=== PATIENT | female | born 1960 | race Caucasian/White ===

== ENCOUNTER 2021-03-12 21:29 | Inpatient (IN) | payer MEDICARE ==
[~2021-03-12] VITALS: Ht 165.1 cm; Wt 165.5 kg
[~2021-03-12 21:29] MED LIST: CARV25TA2 PO; CLOP75TA PO; DIPH25CA58 PO; DOCU-158 PO; FURO40TA4 PO; GABA600T7 PO; GLIM4TAB8 PO; INSU100C4 SQ; INSU100V13 SQ; METF10007 PO; PRAV80TA2 PO; SPIR1TAB PO
--- NOTE | 2021-03-12 21:30 | NUR ---
Pt arrived via gurney at approx. 2100. Pt given sandwich at her request. Pt bed locked and lowered. Call light within reach. No concerns at this time.
[2021-03-12] MEDS ORDERED: SPIR25TA5 PO (22:12)
[2021-03-12] MEDS ORDERED: FURO40TA4 PO (22:12)
[2021-03-12] MEDS ORDERED: LISI5TAB15 PO (22:14)
[2021-03-12] MEDS ORDERED: INSU100I27 SQ (22:14)
[2021-03-12] MEDS ORDERED: ALPR0.254 PO (22:14)
[2021-03-12] MEDS ORDERED: AMLO-186 PO (22:14)
[2021-03-12] MEDS ORDERED: INSU100I17 SQ (22:23)
[2021-03-12] MEDS ORDERED: TIOT4MIS5 IH (22:23)
[2021-03-12] MEDS ORDERED: EZET10TA20 PO (22:23)
[2021-03-12] MEDS ORDERED: DULO30CA2 PO (22:23)
[2021-03-12] MEDS ORDERED: TRAM50TA PO (22:27)
[2021-03-12] MEDS ORDERED: TORS20TA2 PO (22:27)
[2021-03-12 23:21] VITALS: BP 116/72
--- NOTE | 2021-03-12 23:59 | PDOC1 ---
History and Physical Date of Service: DOS: DATE: 03/12/21 TIME: 23:59 Chief Complaint: Problems: (1) Foot ulcer History of Present Illness: HPI: Patient is 60-year-old female presented to outside emergency department yesterday from her make ready mechanic office for further evaluation of left foot ulcerations. Patient is a known diabetic. Apparently when she was at her make ready mechanic yesterday there was some concern for osteomyelitis of the second metatarsal. Patient does report she has been feeling unwell and weak for a little over a week now. Patient's been having some new onset worsening erythema of her left foot. Visit make ready mechanic yesterday outlined the redness and attempt to go to emergency room but already expanded beyond that. 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 X-ray lower extremity concerning for osteomyelitis. When I evaluated patient she was complaining of some foot pain. Past Medical/Surgical History: PMH/PSH: COPD, diabetes, hypertension Allergies: Allergies: Coded Allergies: atorvastatin (Verified Allergy, Intermediate, 03/12/21) latex (Verified Allergy, Intermediate, 03/12/21) Family History: Family History: Diabetes Social History: Social History: Denies alcohol tobacco or drug use Current Medications: Current Medications Active Scripts Active Reported Tramadol Hcl 50 Mg Tablet 50 Mg PO Q6HRS PRN Torsemide 20 Mg Tablet 1 Tab PO DAILY Zetia (Ezetimibe) 10 Mg Tablet 10 Mg PO DAILY Novolog Flexpen (Insulin Aspart) 100 Unit/1 Ml Insuln.pen 10 Unit SQ TIDAC Cymbalta (Duloxetine Hcl) 30 Mg Capsule.dr 30 Mg PO DAILY Spiriva Respimat (Tiotropium [place]) 4 Gm Mist.inhal 2.5 Mcg IH DAILY Levemir Flextouch (Insulin Detemir) 100 Unit/1 Ml Insuln.pen 30 Unit SQ HS Alprazolam 0.25 Mg Tablet 1 Tab PO TID PRN Amlodipine Besylate 5 Mg Tablet 5 Mg PO DAILY Lisinopril 5 Mg Tablet 1 Tab PO DAILY Spironolactone 25 Mg Tablet 25 Mg PO DAILY Furosemide 40 Mg Tablet 40 Mg PO DAILY Gabapentin 600 Mg Tablet 1 Tab PO TID Glimepiride 4 Mg Tablet 1 Tab PO BID Carvedilol 25 Mg Tablet 1 Tab PO BID Clopidogrel (Clopidogrel Bisulfate) 75 Mg Tablet 75 Mg PO DAILY Pravastatin Sodium 80 Mg Tablet 1 Tab PO DAILY ROS: Review of Systems Review of System Unless noted in HPI 14 point review of systems was negative Physical Exam: Vital Signs: Vital Signs Date Time Temp Pulse Resp B/P (MAP) Pulse Ox O2 Delivery O2 Flow Rate FiO2 03/12/21 23:21 97.7 73 16 116/72 (87) 96 Nasal Cannula 3.0 97.7 Physcial Exam: GEN: Obese HEENT: Normal cephalic, atraumatic, external auditory canals are patent EYES: Extraocular muscles are intact, pupil are equally round and reactive to light and accommodation MUSCULOSKELETAL: Well developed , well nourished, good range of motion ENDOCRINE: No thyromegaly was palpated LYMPHATICS: No cervical chain or axillary nodes were noted HEMATOPOIETIC: No bruising NECK: Supple, no JVD, no thyromegaly was noted LUNGS: Clear to auscultation in all lung enriquez without rhonchi or wheezing HEART: RRR, S!, S2 present. Peripheral pulses intact, no obvious murmurs noted ABDOMEN: Soft, nontender. Positive bowel sounds, no organomegaly, normal bowel sounds EXTREMITIES: Prior amputation of left second metatarsal. Erythema on the left foot extending up the ankle. Sole of left foot has 2 ulcers present NEUROLOGIC: Normal speech and tone. A&O x 3, moves all extremities, no obvious focal deficits PSYCHIATRIC: Normal affect, normal mood. Stable SKIN: No ulcerations or rashes, good skin turgor, no jaundice VASCULAR: Good capillary refill, neurovascular bundle appears to be intact Assessment/Plan Assessment/Plan Diabetic foot ulcer with suspected acute osteomyelitis. History of diabetes COPD hypertension -Patient presented to outside hospital from wound care appointment due to worsening foot ulcers. Concern for osteomyelitis -Transferred here -Start patient on Vanco Zosyn. Will consult infectious disease. -Blood cultures were apparently obtained at outside facility -Podiatry consult -DVT prophylaxis -Home meds resumed as indicated -Diet as tolerated Justifications for Admission Other Justification GRIS ORDONEZ MD Mar 12, 2021 23:59
[2021-03-13] MEDS ORDERED: traMADol 50 MG TABLET PO PRN
[2021-03-13] MEDS ORDERED: ELECTROLYTE (NON-ICU) PROTOCOL. MC PRN
[2021-03-13] MEDS ORDERED: oxyCODONE/APAP 5/325 1 TAB TABLET PO PRN
[2021-03-13] MEDS ORDERED: ALPRAZolam 0.25 MG TABLET PO PRN
[2021-03-13] MEDS ORDERED: ACETAMINOPHEN 325 MG TABLET. PO PRN
[2021-03-13] MEDS ORDERED: CALCIUM CARBONATE 500 MG TAB.CHEW PO PRN
[2021-03-13] MEDS ORDERED: ONDANSETRON PF 4 MG/2 ML VIAL. IVP PRN
[2021-03-13] MEDS ORDERED: PIP/TAZO PER PHARMACY MC PRN (00:15)
[2021-03-13] MEDS ORDERED: VANCOMYCIN PER PHARMACY MC PRN (00:15)
[2021-03-13] MEDS: PIPERACILLIN/TAZOBACTAM 3.375 GM in IV NORMAL SALINE 50ML 50 ML IV SCH ×4 (00:50→20:00)
[2021-03-13] MEDS: oxyCODONE/APAP 5/325 1 TAB TABLET PO PRN ×3 (00:54→20:39)
[2021-03-13 01:30] LABS: BASO # 0.1 x10^3/uL (0.0-0.2); BASO % 1 % (0-3); EOS # 0.3 x10^3/uL (0.0-0.7); EOS % 6 % (0-3); HEMATOCRIT 31.2 % (36.0-47.0); HEMOGLOBIN 9.8 g/dL (12.0-15.5); LYMPH # 1.6 x10^3/uL (1.0-4.8); LYMPH % 30 % (24-48); MEAN CORPUSCULAR HEMOGLOBIN 26 pg (25-35); MEAN CORPUSCULAR HGB CONC 32 g/dL (31-37); MEAN CORPUSCULAR VOLUME 84 fL (79-100); MONO # 0.8 x10^3/uL (0.0-1.1); MONO % 14 % (0-9); NEUT # 2.7 x10^3/uL (1.8-7.7); NEUT % 49 % (31-73); PLATELET COUNT 334 x10^3/uL (140-400); RED BLOOD COUNT 3.74 x10^6/uL (3.50-5.40); RED CELL DISTRIBUTION WIDTH 13.9 % (11.5-14.5); WHITE BLOOD COUNT 5.5 x10^3/uL (4.0-11.0)
[2021-03-13 01:43] LABS: PROTHROMBIN TIME PATIENT 12.9 SEC (11.7-14.0)
[2021-03-13 01:45] LABS: ALBUMIN 2.7 g/dL (3.4-5.0); ALBUMIN/GLOBULIN RATIO 0.6 (1.0-1.7); C-REACTIVE PROTEIN 84.9 mg/L (0-3.3); CALCIUM 8.5 mg/dL (8.5-10.1); CREATININE 1.2 mg/dL (0.6-1.0); GFR 45.7; POTASSIUM 5.8 mmol/L (3.5-5.1); TOTAL BILIRUBIN 0.2 mg/dL (0.2-1.0); TOTAL PROTEIN 7.3 g/dL (6.4-8.2)
[2021-03-13] MEDS ORDERED: VANCOMYCIN 2 GM in IV NORMAL SALINE 500ML BAG 500 ML IV ONE (02:00)
[2021-03-13 03:20] VITALS: BP_SYST 105; BP_SYST 124; BP_DIAS 44; BP_DIAS 69
--- NOTE | 2021-03-13 04:13 | NUR ---
Pharmacy Vancomycin Dosing Note S:Consulted to monitor and dose vancomycin started 03/13/21. O:STEPHANIE PETERS is a 60 year old F with Cellulitis . Height: 5 feet, 5 inches Weight: 143.0 kg Holiday Body Weight: 57.00 Adjusted Body Weight: 91.40 Dosing Weight: Actual Other Antibiotics: ZOSYN 3.375 GM Q6H LABS: Last BUN: 33 Last Creatinine: 1.2 Creatinine Clearance: 71 mL/min Last WBC: 5.5 Last Procalcitonin: Tmax (past 24 hours): Microbiology: I/O: Drug Levels: Last level: on at Last dose given 03/13/21 at 0200 Vancomycin Dosing: Loading Dose: 2000 mg x1 Dosing Weight: Actual Target Trough: 10-20 A: Based on: WT AND CRCL P: 1. Begin Vancomycin 2000 mg IV q12h 2. Follow up Trough level on 03/14/21 at 1330 3. Pharmacy will continue to monitor, follow and adjust therapy as needed. CORDELL FIERRO RPH, 03/13/21 0413 Signed: 03/13/21 at 0413 by CORDELL FIERRO RPH PHA
[2021-03-13] MEDS: HEPARIN for SUB-Q USE 5,000 UNIT/ML VIAL. SQ SCH ×3 (05:44→21:29)
[2021-03-13] MEDS: IPRATRPIUM/ALBUTEROL 0.5/2.5MG 3 ML NEBU. NEB SCH ×4 (06:09→18:12)
[2021-03-13 07:00] VITALS: BP 143/57
[2021-03-13] MEDS: EZETIMIBE 10 MG TABLET. PO SCH (08:36)
[2021-03-13] MEDS: GABAPENTIN 300 MG CAPSULE. PO SCH ×3 (08:37→21:26)
[2021-03-13] MEDS: DULoxetine HCL 30 MG CAPSULE.DR PO SCH (08:37)
[2021-03-13] MEDS: CARVEDILOL 12.5 MG TABLET. PO SCH ×2 (08:37→17:40)
[2021-03-13] MEDS: TORSEMIDE 20 MG TABLET. PO SCH (08:38)
[2021-03-13] MEDS: CLOPIDOGREL BISULFATE 75 MG TABLET PO SCH (08:39)
[2021-03-13] MEDS: SENNOSIDES/DOCUSATE 8.6/50MG TABLET. PO SCH ×2 (08:39→21:00)
[2021-03-13] MEDS: INSULIN LISPRO 300 UNITS/3 ML VIAL. SQ SCH ×3 (08:49→17:41)
[2021-03-13] MEDS: NON FORMULARY ITEM (Pravastatin Sodium 1 TAB) PO SCH (09:00)
[2021-03-13] MEDS ORDERED: SPIRONOLACTONE 25 MG TABLET PO SCH (09:00)
[2021-03-13] MEDS ORDERED: NON FORMULARY ITEM (Tiotropium Bromide (Spiriva Respimat) 2.5 MCG) IH SCH (09:00)
[2021-03-13] MEDS ORDERED: LISINOPRIL 5 MG TABLET. PO SCH (09:00)
[2021-03-13 11:00] VITALS: BP 112/36
[2021-03-13 14:00] VITALS: BP 104/35
[2021-03-13] MEDS ORDERED: VANCOMYCIN 2 GM in IV NORMAL SALINE 500ML BAG 500 ML IV SCH (14:00)
--- NOTE | 2021-03-13 14:25 | PDOC2 ---
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 Patient is a known diabetic. Apparently when she was at her fish hatchery worker yesterday there was some concern for osteomyelitis of the second metatarsal. Patient does report she has been feeling unwell and weak for a little over a week now. Patient's been having some new onset worsening erythema of her left foot. 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 X-ray lower extremity concerning for osteomyelitis. Denies any CP, No SOB. No F/C. No N/V/D. Denies use of NSAID's or any OTC supplements . Denies any urinary complaints, no symptoms of UTI, reports Normal UOP. She has Chronic chjanges of CVI both LE, reports Lt LE swelling worse recently . Reports her weight has been stable. No new med changes by PCP Dr. Daniels, she has been on Loop diuretic, Aldcatone and Lisinopril for long time . She is not aware of Dx of CKD or abnormal Kidney function . Denies any Hx of Renal calculus.No FHx of CKD or ESRD Past Medical History Cardiovascular: CAD, HTN, Hyperlipidemia Pulmonary: COPD CENTRAL NERVOUS SYSTEM: Periperal neuropathy GI: Constipation, Other Heme/Onc: No pertinent hx Hepatobiliary: No pertinent hx Psych: No pertinent hx Musculoskeletal: Osteoarthritis Infectious disease: No pertinent hx Renal/: No pertinent hx Endocrine: Diabetes Past Surgical History Past Surgical History: Cholecystectomy, Hernia Repair, Other Family History Family History: Coronary Artery Disease Social History ALCOHOL: none Drugs: None Lives: with Family Domestic Violence: Neg Current Medications Current Medications Current Medications Ondansetron HCl (Zofran) 4 mg PRN Q6HRS PRN IVP NAUSEA/VOMITING 1ST CHOICE; Start 03/13/21 at 00:00 Calcium Carbonate/ Glycine (Tums) 500 mg PRN Q3HRS PRN PO UPSET STOMACH; Start 03/13/21 at 00:00 Zolpidem Tartrate (Ambien) 5 mg PRN QHS PRN PO INSOMNIA, MAY REPEAT IN 1HR; Start 03/13/21 at 00:00 Info (Non-Icu Electrolyte Protocol) 1 ea PRN DAILY PRN MC SEE COMMENTS; Start 03/13/21 at 00:00 Oxycodone HCl (Roxicodone) 5 mg PRN Q3HRS PRN PO BREAKTHROUGH PAIN; Start 03/13/21 at 00:00 Oxycodone/ Acetaminophen (Percocet 5/325) 1 tab PRN Q4HRS PRN PO MODERATE PAIN; Start 03/13/21 at 00:00 Oxycodone/ Acetaminophen (Percocet 5/325) 2 tab PRN Q4HRS PRN PO SEVERE PAIN Last administered on 03/13/21at 08:48; Start 03/13/21 at 00:00 Acetaminophen (Tylenol) 650 mg PRN Q6HRS PRN PO Headaches, Temp > 101.5F; Start 03/13/21 at 00:00 Senna/Docusate Sodium (Senna Plus) 1 tab BID PO Last administered on 03/13/21at 08:39; Start 03/13/21 at 09:00 Heparin Sodium (Porcine) (Heparin Sodium) 5,000 unit Q8HRS SQ Last administered on 03/13/21at 05:44; Start 03/13/21 at 06:00 Alprazolam (Xanax) 0.25 mg PRN TID PRN PO ANXIETY / AGITATION; Start 03/13/21 at 00:00 Amlodipine Besylate (Norvasc) 5 mg DAILY PO Last administered on 03/13/21at 08:36; Start 03/13/21 at 09:00 Clopidogrel Bisulfate (Plavix) 75 mg DAILY PO Last administered on 03/13/21at 08:39; Start 03/13/21 at 09:00 Duloxetine HCl (Cymbalta) 30 mg DAILY PO Last administered on 03/13/21at 08:37; Start 03/13/21 at 09:00 EZETIMIBE (Zetia) 10 mg DAILY PO Last administered on 03/13/21at 08:36; Start 03/13/21 at 09:00 Lisinopril (Prinivil) 5 mg DAILY PO Last administered on 03/13/21at 08:35; Start 03/13/21 at 09:00 Spironolactone (Aldactone) 25 mg DAILY PO Last administered on 03/13/21at 08:38; Start 03/13/21 at 09:00 Torsemide (Demadex) 20 mg DAILY PO Last administered on 03/13/21at 08:38; Start 03/13/21 at 09:00 Tramadol HCl (Ultram) 50 mg PRN Q6HRS PRN PO MILD PAIN 1-3; Start 03/13/21 at 00:00 Carvedilol (Coreg) 25 mg BIDWMEALS PO Last administered on 03/13/21at 08:37; Start 03/13/21 at 08:00 Gabapentin (Neurontin) 600 mg TID PO Last administered on 03/13/21at 08:37; Start 03/13/21 at 09:00 Insulin Human Lispro (HumaLOG) 10 units TIDWMEALS SQ Last administered on 03/13/21at 12:54; Start 03/13/21 at 08:00 Insulin Glargine (Lantus Syringe) 30 unit QHS SQ ; Start 03/13/21 at 21:00 Non-Formulary Medication (Pravastatin Sodium ) 1 tab DAILY PO ; Start 03/13/21 at 09:00; Status UNV Non-Formulary Medication (Tiotropium [place] (Spiriva Respimat)) 2.5 mcg DAILY IH ; Start 03/13/21 at 09:00; Status UNV Vancomycin HCl (Vanco Per Pharmacy) 1 each PRN DAILY PRN MC SEE COMMENTS Last administered on 03/13/21at 04:11; Start 03/13/21 at 00:15 Piperacillin Sod/ Tazobactam Sod (Zosyn Per Pharmacy) 1 each PRN DAILY PRN MC SEE COMMENTS; Start 03/13/21 at 00:15 Albuterol/ Ipratropium (Duoneb) 3 ml RTQID NEB Last administered on 03/13/21at 11:37; Start 03/13/21 at 08:00 Piperacillin Sod/ Tazobactam Sod 3.375 gm/Sodium Chloride 50 ml @ 100 mls/hr Q6HRS IV Last administered on 03/13/21at 12:48; Start 03/13/21 at 01:00 Vancomycin HCl 2 gm/Sodium Chloride 500 ml @ 250 mls/hr 1X ONCE IV Last administered on 03/13/21at 02:00; Start 03/13/21 at 02:00; Stop 03/13/21 at 03:59; Status DC Vancomycin HCl 2 gm/Sodium Chloride 500 ml @ 250 mls/hr Q12H IV ; Start 03/13/21 at 14:00 Vancomycin HCl (Vancomycin Trough Level) 1 each 1X ONCE MC ; Start 03/14/21 at 13:30; Stop 03/14/21 at 13:31 Lactobacillus Rhamnosus (Culturelle) 1 cap BID PO ; Start 03/13/21 at 21:00 Active Scripts Active Reported Tramadol Hcl 50 Mg Tablet 50 Mg PO Q6HRS PRN Torsemide 20 Mg Tablet 1 Tab PO DAILY Zetia (Ezetimibe) 10 Mg Tablet 10 Mg PO DAILY Novolog Flexpen (Insulin Aspart) 100 Unit/1 Ml Insuln.pen 10 Unit SQ TIDAC Cymbalta (Duloxetine Hcl) 30 Mg Capsule.dr 30 Mg PO DAILY Spiriva Respimat (Tiotropium [place]) 4 Gm Mist.inhal 2.5 Mcg IH DAILY Levemir Flextouch (Insulin Detemir) 100 Unit/1 Ml Insuln.pen 30 Unit SQ HS Alprazolam 0.25 Mg Tablet 1 Tab PO TID PRN Amlodipine Besylate 5 Mg Tablet 5 Mg PO DAILY Lisinopril 5 Mg Tablet 1 Tab PO DAILY Spironolactone 25 Mg Tablet 25 Mg PO DAILY Furosemide 40 Mg Tablet 40 Mg PO DAILY Gabapentin 600 Mg Tablet 1 Tab PO TID Glimepiride 4 Mg Tablet 1 Tab PO BID Carvedilol 25 Mg Tablet 1 Tab PO BID Clopidogrel (Clopidogrel Bisulfate) 75 Mg Tablet 75 Mg PO DAILY Pravastatin Sodium 80 Mg Tablet 1 Tab PO DAILY Allergies Allergies: Coded Allergies: atorvastatin (Verified Allergy, Intermediate, 03/12/21) latex (Verified Allergy, Intermediate, 03/12/21) ROS Review of System As per HPI, rest of the ROS is negative Physical Exam Physical Exam GEN: Obese, NAD HEENT: Normal cephalic, atraumatic, OM moist, anicteric NECK: Supple, no JVD LUNGS: Clear to auscultation , Non labored HEART: RRR, ABDOMEN: Soft, nontender. Obese EXTREMITIES: Prior amputation of left second metatarsal. Erythema on the left foot extending up the ankle. Sole of left foot has 2 ulcers present. Changes of CVI + Bilat LE . Lt LE edema + NEUROLOGIC A&O x 3, no obvious focal deficits PSYCHIATRIC: Normal affect, normal mood. Stable SKIN: No rashes, Changes of CVI+ No [place], No CVA or SP tenderness Vital Signs Vital Signs Date Time Temp Pulse Resp B/P (MAP) Pulse Ox O2 Delivery O2 Flow Rate FiO2 03/13/21 11:37 Nasal Cannula 3.0 03/13/21 11:00 97.6 65 18 112/36 (61) 95 97.6 Assessment & Plan LYNNETTE - Baseline from [place] Cr 1.3 , Per Consult placed by PCP Cr of 3.2- I could not find any records with this Creatinine. Reviewed available records from [facility] as well as li RN UOP not recorded , strict I/O , avoid Nephrotoxins (Monitor Vanc levels ) , ,Maintain hydration , monitor labs HypoNatremia- Mild, Monitor HyperKalemia- On Aldactone and Lisinopril not dced - as per current med list Diabetic foot ulcer with suspected acute osteomyelitis- Currently on Abx Vanco Zosyn. infectious disease. consulted HTN- On multiple antihypertensives . Also on Torsemide, Aldactone, small dose CHI-I . BP Low Normal, Hold Antihypertensives/Diuretics if Hypotensive DM per primary Anemia- Hgb < 10 , defer [place] to primary Labs Labs Laboratory Tests Test 03/13/21 00:55 03/13/21 01:05 03/13/21 08:14 03/13/21 11:38 Prothrombin Time 12.9 SEC (11.7-14.0) Prothromb Time International Ratio 1.0 (0.8-1.1) Activated Partial Thromboplast Time 31 SEC (24-38) White Blood Count 5.5 x10^3/uL (4.0-11.0) Red Blood Count 3.74 x10^6/uL (3.50-5.40) Hemoglobin 9.8 g/dL (12.0-15.5) Hematocrit 31.2 % (36.0-47.0) Mean Corpuscular Volume 84 fL (79-100) Mean Corpuscular Hemoglobin 26 pg (25-35) Mean Corpuscular Hemoglobin Concent 32 g/dL (31-37) Red Cell Distribution Width 13.9 % (11.5-14.5) Platelet Count 334 x10^3/uL (140-400) Neutrophils (%) (Auto) 49 % (31-73) Lymphocytes (%) (Auto) 30 % (24-48) Monocytes (%) (Auto) 14 % (0-9) Eosinophils (%) (Auto) 6 % (0-3) Basophils (%) (Auto) 1 % (0-3) Neutrophils # (Auto) 2.7 x10^3/uL (1.8-7.7) Lymphocytes # (Auto) 1.6 x10^3/uL (1.0-4.8) Monocytes # (Auto) 0.8 x10^3/uL (0.0-1.1) Eosinophils # (Auto) 0.3 x10^3/uL (0.0-0.7) Basophils # (Auto) 0.1 x10^3/uL (0.0-0.2) Sodium Level 133 mmol/L (136-145) Potassium Level 5.8 mmol/L (3.5-5.1) Chloride Level 98 mmol/L (98-107) Carbon Dioxide Level 30 mmol/L (21-32) Anion Gap 5 (6-14) Blood Urea Nitrogen 33 mg/dL (7-20) Creatinine 1.2 mg/dL (0.6-1.0) Estimated GFR (Cockcroft-Gault) 45.7 BUN/Creatinine Ratio 28 (6-20) Glucose Level 150 mg/dL (70-99) Calcium Level 8.5 mg/dL (8.5-10.1) Total Bilirubin 0.2 mg/dL (0.2-1.0) Aspartate Amino Transf (AST/SGOT) 11 U/L (15-37) Alanine Aminotransferase (ALT/SGPT) 14 U/L (14-59) Alkaline Phosphatase 112 U/L (46-116) Creatine Kinase 30 U/L (26-192) C-Reactive Protein, Quantitative 84.9 mg/L (0-3.3) Total Protein 7.3 g/dL (6.4-8.2) Albumin 2.7 g/dL (3.4-5.0) Albumin/Globulin Ratio 0.6 (1.0-1.7) Glucose (Fingerstick) 203 mg/dL (70-99) 206 mg/dL (70-99) Laboratory Tests Test 03/13/21 00:55 03/13/21 01:05 03/13/21 08:14 03/13/21 11:38 Prothrombin Time 12.9 SEC (11.7-14.0) Prothromb Time International Ratio 1.0 (0.8-1.1) Activated Partial Thromboplast Time 31 SEC (24-38) White Blood Count 5.5 x10^3/uL (4.0-11.0) Red Blood Count 3.74 x10^6/uL (3.50-5.40) Hemoglobin 9.8 g/dL (12.0-15.5) Hematocrit 31.2 % (36.0-47.0) Mean Corpuscular Volume 84 fL (79-100) Mean Corpuscular Hemoglobin 26 pg (25-35) Mean Corpuscular Hemoglobin Concent 32 g/dL (31-37) Red Cell Distribution Width 13.9 % (11.5-14.5) Platelet Count 334 x10^3/uL (140-400) Neutrophils (%) (Auto) 49 % (31-73) Lymphocytes (%) (Auto) 30 % (24-48) Monocytes (%) (Auto) 14 % (0-9) Eosinophils (%) (Auto) 6 % (0-3) Basophils (%) (Auto) 1 % (0-3) Neutrophils # (Auto) 2.7 x10^3/uL (1.8-7.7) Lymphocytes # (Auto) 1.6 x10^3/uL (1.0-4.8) Monocytes # (Auto) 0.8 x10^3/uL (0.0-1.1) Eosinophils # (Auto) 0.3 x10^3/uL (0.0-0.7) Basophils # (Auto) 0.1 x10^3/uL (0.0-0.2) Sodium Level 133 mmol/L (136-145) Potassium Level 5.8 mmol/L (3.5-5.1) Chloride Level 98 mmol/L (98-107) Carbon Dioxide Level 30 mmol/L (21-32) Anion Gap 5 (6-14) Blood Urea Nitrogen 33 mg/dL (7-20) Creatinine 1.2 mg/dL (0.6-1.0) Estimated GFR (Cockcroft-Gault) 45.7 BUN/Creatinine Ratio 28 (6-20) Glucose Level 150 mg/dL (70-99) Calcium Level 8.5 mg/dL (8.5-10.1) Total Bilirubin 0.2 mg/dL (0.2-1.0) Aspartate Amino Transf (AST/SGOT) 11 U/L (15-37) Alanine Aminotransferase (ALT/SGPT) 14 U/L (14-59) Alkaline Phosphatase 112 U/L (46-116) Creatine Kinase 30 U/L (26-192) C-Reactive Protein, Quantitative 84.9 mg/L (0-3.3) Total Protein 7.3 g/dL (6.4-8.2) Albumin 2.7 g/dL (3.4-5.0) Albumin/Globulin Ratio 0.6 (1.0-1.7) Glucose (Fingerstick) 203 mg/dL (70-99) 206 mg/dL (70-99) Review All relevant outside records, renal labs, imaging studies, telemetry/EKG's were reviewed. Images Images Xray foot left - reviewed [facility] ER records MILDRED BUCK MD Mar 13, 2021 14:25
--- NOTE | 2021-03-13 16:35 | PDOC2 ---
CONSULT Date of Consult Date of Consult DATE: 03/13/21 TIME: 16:20 Reason for Consult Reason for Consult: Foot wound abx management Referring Physician Referring Physician: DR Mack Source Source: Chart review, Patient History of Present Illness Reason for Visit: 60-year-old female with previous LT 2nd toe partial ampuation who was sent from [facility] and DR George's office for further evaluation of left foot ulcerations and possible OM of Rt 2nd metatarsal area.. Pt underwent callus removal and subsequently noticed pain ,swelling and redness. Patient is a known diabetic neuropathy. Patient denies any fever or c hills but has been having weakness along with some new onset worsening erythema of her left foot. X-ray lower extremity concerning for osteomyelitis.Currently on IV Vanc and Zosyn. Has bilateral lower ext venous stasis chronic. NO N/V/D/Abdominal pain/cough or sob Past Medical History Cardiovascular: CAD, HTN, Hyperlipidemia Pulmonary: COPD CENTRAL NERVOUS SYSTEM: Periperal neuropathy GI: Constipation, Other Heme/Onc: No pertinent hx Hepatobiliary: No pertinent hx Psych: No pertinent hx Musculoskeletal: Osteoarthritis Infectious disease: No pertinent hx Renal/: No pertinent hx Endocrine: Diabetes Past Surgical History Past Surgical History: Cholecystectomy, Hernia Repair, Other Family History Family History: Coronary Artery Disease Social History ALCOHOL: none Drugs: None Lives: with Family Domestic Violence: Neg Current Medications Current Medications Current Medications Ondansetron HCl (Zofran) 4 mg PRN Q6HRS PRN IVP NAUSEA/VOMITING 1ST CHOICE; Start 03/13/21 at 00:00 Calcium Carbonate/ Glycine (Tums) 500 mg PRN Q3HRS PRN PO UPSET STOMACH; Start 03/13/21 at 00:00 Zolpidem Tartrate (Ambien) 5 mg PRN QHS PRN PO INSOMNIA, MAY REPEAT IN 1HR; Start 03/13/21 at 00:00 Info (Non-Icu Electrolyte Protocol) 1 ea PRN DAILY PRN MC SEE COMMENTS; Start 03/13/21 at 00:00 Oxycodone HCl (Roxicodone) 5 mg PRN Q3HRS PRN PO BREAKTHROUGH PAIN; Start 03/13/21 at 00:00 Oxycodone/ Acetaminophen (Percocet 5/325) 1 tab PRN Q4HRS PRN PO MODERATE PAIN; Start 03/13/21 at 00:00 Oxycodone/ Acetaminophen (Percocet 5/325) 2 tab PRN Q4HRS PRN PO SEVERE PAIN Last administered on 03/13/21 08:48; Start 03/13/21 at 00:00 Acetaminophen (Tylenol) 650 mg PRN Q6HRS PRN PO Headaches, Temp > 101.5F; Start 03/13/21 at 00:00 Senna/Docusate Sodium (Senna Plus) 1 tab BID PO Last administered on 03/13/21at 08:39; Start 03/13/21 at 09:00 Heparin Sodium (Porcine) (Heparin Sodium) 5,000 unit Q8HRS SQ Last administered on 03/13/21 15:13; Start 03/13/21 at 06:00 Alprazolam (Xanax) 0.25 mg PRN TID PRN PO ANXIETY / AGITATION; Start 03/13/21 at 00:00 Amlodipine Besylate (Norvasc) 5 mg DAILY PO Last administered on 03/13/21 08:36; Start 03/13/21 at 09:00 Clopidogrel Bisulfate (Plavix) 75 mg DAILY PO Last administered on 03/13/21 08:39; Start 03/13/21 at 09:00 Duloxetine HCl (Cymbalta) 30 mg DAILY PO Last administered on 03/13/21 08:37; Start 03/13/21 at 09:00 EZETIMIBE (Zetia) 10 mg DAILY PO Last administered on 03/13/21 08:36; Start 03/13/21 at 09:00 Lisinopril (Prinivil) 5 mg DAILY PO Last administered on 03/13/21 08:35; Start 03/13/21 at 09:00 Spironolactone (Aldactone) 25 mg DAILY PO Last administered on 03/13/21 08:38; Start 03/13/21 at 09:00; Stop 03/13/21 at 15:18; Status DC Torsemide (Demadex) 20 mg DAILY PO Last administered on 03/13/21 08:38; Start 03/13/21 at 09:00 Tramadol HCl (Ultram) 50 mg PRN Q6HRS PRN PO MILD PAIN 1-3; Start 03/13/21 at 00:00 Carvedilol (Coreg) 25 mg BIDWMEALS PO Last administered on 03/13/21at 08:37; Start 03/13/21 at 08:00 Gabapentin (Neurontin) 600 mg TID PO Last administered on 03/13/21at 15:00; Start 03/13/21 at 09:00 Insulin Human Lispro (HumaLOG) 10 units TIDWMEALS SQ Last administered on 03/13/21at 12:54; Start 03/13/21 at 08:00 Insulin Glargine (Lantus Syringe) 30 unit QHS SQ ; Start 03/13/21 at 21:00 Non-Formulary Medication (Pravastatin Sodium ) 1 tab DAILY PO ; Start 03/13/21 at 09:00; Status UNV Non-Formulary Medication (Tiotropium Ellerbe (Spiriva Respimat)) 2.5 mcg DAILY IH ; Start 03/13/21 at 09:00; Status UNV Vancomycin HCl (Vanco Per Pharmacy) 1 each PRN DAILY PRN MC SEE COMMENTS Last administered on 03/13/21at 04:11; Start 03/13/21 at 00:15 Piperacillin Sod/ Tazobactam Sod (Zosyn Per Pharmacy) 1 each PRN DAILY PRN MC SEE COMMENTS; Start 03/13/21 at 00:15 Albuterol/ Ipratropium (Duoneb) 3 ml RTQID NEB Last administered on 03/13/21at 15:07; Start 03/13/21 at 08:00 Piperacillin Sod/ Tazobactam Sod 3.375 gm/Sodium Chloride 50 ml @ 100 mls/hr Q6HRS IV Last administered on 03/13/21at 12:48; Start 03/13/21 at 01:00 Vancomycin HCl 2 gm/Sodium Chloride 500 ml @ 250 mls/hr 1X ONCE IV Last administered on 03/13/21at 02:00; Start 03/13/21 at 02:00; Stop 03/13/21 at 03:59; Status DC Vancomycin HCl 2 gm/Sodium Chloride 500 ml @ 250 mls/hr Q12H IV Last administered on 03/13/21at 14:58; Start 03/13/21 at 14:00 Vancomycin HCl (Vancomycin Trough Level) 1 each 1X ONCE MC ; Start 03/14/21 at 13:30; Stop 03/14/21 at 13:31 Lactobacillus Rhamnosus (Culturelle) 1 cap BID PO ; Start 03/13/21 at 21:00 Active Scripts Active Reported Tramadol Hcl 50 Mg Tablet 50 Mg PO Q6HRS PRN Torsemide 20 Mg Tablet 1 Tab PO DAILY Zetia (Ezetimibe) 10 Mg Tablet 10 Mg PO DAILY Novolog Flexpen (Insulin Aspart) 100 Unit/1 Ml Insuln.pen 10 Unit SQ TIDAC Cymbalta (Duloxetine Hcl) 30 Mg Capsule.dr 30 Mg PO DAILY Spiriva Respimat (Tiotropium Ellerbe) 4 Gm Mist.inhal 2.5 Mcg IH DAILY Levemir Flextouch (Insulin Detemir) 100 Unit/1 Ml Insuln.pen 30 Unit SQ HS Alprazolam 0.25 Mg Tablet 1 Tab PO TID PRN Amlodipine Besylate 5 Mg Tablet 5 Mg PO DAILY Lisinopril 5 Mg Tablet 1 Tab PO DAILY Spironolactone 25 Mg Tablet 25 Mg PO DAILY Furosemide 40 Mg Tablet 40 Mg PO DAILY Gabapentin 600 Mg Tablet 1 Tab PO TID Glimepiride 4 Mg Tablet 1 Tab PO BID Carvedilol 25 Mg Tablet 1 Tab PO BID Clopidogrel (Clopidogrel Bisulfate) 75 Mg Tablet 75 Mg PO DAILY Pravastatin Sodium 80 Mg Tablet 1 Tab PO DAILY Allergies Allergies: Coded Allergies: atorvastatin (Verified Allergy, Intermediate, 03/12/21) latex (Verified Allergy, Intermediate, 03/12/21) ROS Review of System negative except for above Physical Exam Physical Exam GEN: Well developed and well nourished female in nad sitting up in chair HEENT: Perrl and EOMI Normal cephalic, atraumatic, OM moist, anicteric NECK: Supple, no JVD LUNGS: Clear bilaterally HEART: RRR, ABDOMEN: Soft, nontender. Obese BS + EXTREMITIES: Prior amputation of left second metatarsal. Erythema on the left foot extending up the ankle. left plantar foot has 2 ulcers present. BLE 1-2 + edema + Chronic venous insuffiency NEUROLOGIC A&O x 3, no obvious focal deficits PSYCHIATRIC: Normal affect, normal mood. Stable SKIN: No rashes, Changes of CVI+ No [place], No CVA or SP tenderness Vitals VITALS Vital Signs Date Time Temp Pulse Resp B/P (MAP) Pulse Ox O2 Delivery O2 Flow Rate FiO2 03/13/21 15:08 Nasal Cannula 3.0 03/13/21 14:00 97.7 69 18 104/35 (58) 94 97.7 Labs Labs Laboratory Tests Test 03/13/21 00:55 03/13/21 01:05 03/13/21 08:14 03/13/21 11:38 Prothrombin Time 12.9 SEC (11.7-14.0) Prothromb Time International Ratio 1.0 (0.8-1.1) Activated Partial Thromboplast Time 31 SEC (24-38) White Blood Count 5.5 x10^3/uL (4.0-11.0) Red Blood Count 3.74 x10^6/uL (3.50-5.40) Hemoglobin 9.8 g/dL (12.0-15.5) Hematocrit 31.2 % (36.0-47.0) Mean Corpuscular Volume 84 fL (79-100) Mean Corpuscular Hemoglobin 26 pg (25-35) Mean Corpuscular Hemoglobin Concent 32 g/dL (31-37) Red Cell Distribution Width 13.9 % (11.5-14.5) Platelet Count 334 x10^3/uL (140-400) Neutrophils (%) (Auto) 49 % (31-73) Lymphocytes (%) (Auto) 30 % (24-48) Monocytes (%) (Auto) 14 % (0-9) Eosinophils (%) (Auto) 6 % (0-3) Basophils (%) (Auto) 1 % (0-3) Neutrophils # (Auto) 2.7 x10^3/uL (1.8-7.7) Lymphocytes # (Auto) 1.6 x10^3/uL (1.0-4.8) Monocytes # (Auto) 0.8 x10^3/uL (0.0-1.1) Eosinophils # (Auto) 0.3 x10^3/uL (0.0-0.7) Basophils # (Auto) 0.1 x10^3/uL (0.0-0.2) Sodium Level 133 mmol/L (136-145) Potassium Level 5.8 mmol/L (3.5-5.1) Chloride Level 98 mmol/L (98-107) Carbon Dioxide Level 30 mmol/L (21-32) Anion Gap 5 (6-14) Blood Urea Nitrogen 33 mg/dL (7-20) Creatinine 1.2 mg/dL (0.6-1.0) Estimated GFR (Cockcroft-Gault) 45.7 BUN/Creatinine Ratio 28 (6-20) Glucose Level 150 mg/dL (70-99) Calcium Level 8.5 mg/dL (8.5-10.1) Total Bilirubin 0.2 mg/dL (0.2-1.0) Aspartate Amino Transf (AST/SGOT) 11 U/L (15-37) Alanine Aminotransferase (ALT/SGPT) 14 U/L (14-59) Alkaline Phosphatase 112 U/L (46-116) Creatine Kinase 30 U/L (26-192) C-Reactive Protein, Quantitative 84.9 mg/L (0-3.3) Total Protein 7.3 g/dL (6.4-8.2) Albumin 2.7 g/dL (3.4-5.0) Albumin/Globulin Ratio 0.6 (1.0-1.7) Glucose (Fingerstick) 203 mg/dL (70-99) 206 mg/dL (70-99) Laboratory Tests Test 03/13/21 00:55 03/13/21 01:05 03/13/21 08:14 03/13/21 11:38 Prothrombin Time 12.9 SEC (11.7-14.0) Prothromb Time International Ratio 1.0 (0.8-1.1) Activated Partial Thromboplast Time 31 SEC (24-38) White Blood Count 5.5 x10^3/uL (4.0-11.0) Red Blood Count 3.74 x10^6/uL (3.50-5.40) Hemoglobin 9.8 g/dL (12.0-15.5) Hematocrit 31.2 % (36.0-47.0) Mean Corpuscular Volume 84 fL (79-100) Mean Corpuscular Hemoglobin 26 pg (25-35) Mean Corpuscular Hemoglobin Concent 32 g/dL (31-37) Red Cell Distribution Width 13.9 % (11.5-14.5) Platelet Count 334 x10^3/uL (140-400) Neutrophils (%) (Auto) 49 % (31-73) Lymphocytes (%) (Auto) 30 % (24-48) Monocytes (%) (Auto) 14 % (0-9) Eosinophils (%) (Auto) 6 % (0-3) Basophils (%) (Auto) 1 % (0-3) Neutrophils # (Auto) 2.7 x10^3/uL (1.8-7.7) Lymphocytes # (Auto) 1.6 x10^3/uL (1.0-4.8) Monocytes # (Auto) 0.8 x10^3/uL (0.0-1.1) Eosinophils # (Auto) 0.3 x10^3/uL (0.0-0.7) Basophils # (Auto) 0.1 x10^3/uL (0.0-0.2) Sodium Level 133 mmol/L (136-145) Potassium Level 5.8 mmol/L (3.5-5.1) Chloride Level 98 mmol/L (98-107) Carbon Dioxide Level 30 mmol/L (21-32) Anion Gap 5 (6-14) Blood Urea Nitrogen 33 mg/dL (7-20) Creatinine 1.2 mg/dL (0.6-1.0) Estimated GFR (Cockcroft-Gault) 45.7 BUN/Creatinine Ratio 28 (6-20) Glucose Level 150 mg/dL (70-99) Calcium Level 8.5 mg/dL (8.5-10.1) Total Bilirubin 0.2 mg/dL (0.2-1.0) Aspartate Amino Transf (AST/SGOT) 11 U/L (15-37) Alanine Aminotransferase (ALT/SGPT) 14 U/L (14-59) Alkaline Phosphatase 112 U/L (46-116) Creatine Kinase 30 U/L (26-192) C-Reactive Protein, Quantitative 84.9 mg/L (0-3.3) Total Protein 7.3 g/dL (6.4-8.2) Albumin 2.7 g/dL (3.4-5.0) Albumin/Globulin Ratio 0.6 (1.0-1.7) Glucose (Fingerstick) 203 mg/dL (70-99) 206 mg/dL (70-99) Images Images Lt plantar wounds, callus ,cellulitis , Possible OM DM with neuropathy Renal insuffiency H/O Lt 2nd toe partial amputation HTN Chr venous insuffiency Anemia Assessment/Plan Assessment/Plan DC Vanc Cont Zosyn may need renal dosing Dapto Will likely need Imaging of Lt foot to r/o OM,abscess, MRI would be optimal, Local wound care Off load Monitor labs and cultures D/W NOHEMI MEJIAS MD Mar 13, 2021 16:35
[2021-03-13 19:00] VITALS: BP 152/65
--- NOTE | 2021-03-13 19:38 | NUR ---
DL collected, sent to [id number].
[2021-03-13 20:30] LABS: BILIRUBIN,URINE NEGATIVE (NEG); CLARITY,URINE CLEAR; COLOR,URINE YELLOW; NITRITE,URINE NEGATIVE (NEG); PROTEIN,URINE NEGATIVE (NEG-TRACE)
[2021-03-13 20:38] LABS: BACTERIA,URINE 0 /HPF (0-FEW); RBC,URINE 0 /HPF (0-2); YEAST,URINE PRESENT /HPF
[2021-03-13] MEDS ORDERED: INSULIN GLARGINE SYRINGE. SQ SCH (21:00)
[2021-03-13] MEDS: DAPTOmycin (GENERIC) IVPB 550 MG in IV NORMAL SALINE 50ML 50 ML IV SCH (21:00)
[2021-03-13] MEDS: LACTOBACILLUS RHAMNOSUS GG 1 CAPSULE. PO SCH (21:00)
[2021-03-13] MEDS: ZOLPIDEM 5 MG TABLET. PO PRN (21:26)
[2021-03-13] MEDS: oxyCODONE IR 5 MG TABLET PO PRN (21:28)
[2021-03-13 23:01] VITALS: BP 123/65
[2021-03-14] MEDS: PIPERACILLIN/TAZOBACTAM 3.375 GM in IV NORMAL SALINE 50ML 50 ML IV SCH ×4 (01:00→17:50)
[2021-03-14] MEDS: oxyCODONE/APAP 5/325 1 TAB TABLET PO PRN ×4 (05:05→22:35)
[2021-03-14] MEDS: HEPARIN for SUB-Q USE 5,000 UNIT/ML VIAL. SQ SCH ×3 (05:30→21:50)
[2021-03-14 05:47] LABS: HEMOGLOBIN A1C 11.4 % (4.8-5.6)
[2021-03-14 07:00] VITALS: BP 94/61
[2021-03-14] MEDS: IPRATRPIUM/ALBUTEROL 0.5/2.5MG 3 ML NEBU. NEB SCH ×4 (07:34→20:36)
[2021-03-14 07:59] LABS: CALCIUM 8.5 mg/dL (8.5-10.1); CREATININE 1.7 mg/dL (0.6-1.0); GFR 30.6
[2021-03-14 08:11] LABS: POTASSIUM 6.1 mmol/L (3.5-5.1)
[2021-03-14] MEDS: GABAPENTIN 300 MG CAPSULE. PO SCH ×3 (08:46→21:37)
[2021-03-14] MEDS: LACTOBACILLUS RHAMNOSUS GG 1 CAPSULE. PO SCH ×2 (08:46→21:37)
[2021-03-14] MEDS: EZETIMIBE 10 MG TABLET. PO SCH (08:46)
[2021-03-14] MEDS: CLOPIDOGREL BISULFATE 75 MG TABLET PO SCH (08:46)
[2021-03-14] MEDS: SENNOSIDES/DOCUSATE 8.6/50MG TABLET. PO SCH ×2 (08:46→21:37)
[2021-03-14] MEDS: DULoxetine HCL 30 MG CAPSULE.DR PO SCH (08:46)
[2021-03-14] MEDS: TORSEMIDE 20 MG TABLET. PO SCH (08:47)
[2021-03-14] MEDS: NON FORMULARY ITEM (Pravastatin Sodium 1 TAB) PO SCH (08:48)
[2021-03-14] MEDS: INSULIN LISPRO 300 UNITS/3 ML VIAL. SQ SCH ×3 (08:56→18:03)
--- NOTE | 2021-03-14 09:21 | PDOC ---
[employer] PROGRESS NOTE Date of Service DOS: DATE: 03/14/21 TIME: 09:19 Chief Complaint Chief Complaint Diabetic foot ulcer with suspected acute osteomyelitis. History of diabetes COPD hypertension -Patient presented to outside hospital from wound care appointment due to worsening foot ulcers. Concern for osteomyelitis -Transferred here -Start patient on Vanco Zosyn. Will consult infectious disease. -Blood cultures were apparently obtained at outside facility -Podiatry consult -DVT prophylaxis -Home meds resumed as indicated -Diet as tolerated History of Present Illness History of Present Illness Patient is 60-year-old female presented to outside emergency department yesterday from her planning consultant office for further evaluation of left foot ulcerations. Patient is a known diabetic. Apparently when she was at her planning consultant yesterday there was some concern for osteomyelitis of the second metatarsal. Patient does report she has been feeling unwell and weak for a little over a week now. Patient's been having some new onset worsening erythema of her left foot. Visit planning consultant yesterday outlined the redness and attempt to go to emergency room but already expanded beyond that. 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 X-ray lower extremity concerning for osteomyelitis. When I evaluated patient she was complaining of some foot pain. 03/13 Late entry for 03 13. Patient evaluated and examined at bedside. Was complaining of some ongoing foot pain. Antibiotics started she is tolerating well. Consults to ID podiatry and nephrology. Plan of care discussed with bedside RN. Vitals/I&O Vitals/I&O: Vital Signs Date Time Temp Pulse Resp B/P (MAP) Pulse Ox O2 Delivery O2 Flow Rate FiO2 03/14/21 07:36 99 Nasal Cannula 3.0 03/14/21 07:00 98.0 125 18 94/61 (72) 98.0 I & O 03/13/21 03/13/21 03/14/21 15:00 23:00 07:00 Intake Total 750 ml 1000 ml 600 ml Balance 750 ml 1000 ml 600 ml Physical Exam General: Alert, Oriented X3, Cooperative Heart: Regular rate, Normal S1, Normal S2 Lungs: Clear Abdomen: Other (obese) Extremities: Other (previous toe amputation left) Skin: Other (Some erythema on left foot and ankle) Labs Labs: Laboratory Tests Test 03/13/21 11:38 03/13/21 17:35 03/13/21 19:20 03/13/21 20:26 Glucose (Fingerstick) 206 mg/dL (70-99) 297 mg/dL (70-99) 322 mg/dL (70-99) Urine Collection Type Unknown Urine Color Yellow Urine Clarity Clear Urine pH 5.0 (<5.0-8.0) Urine Specific [place] 1.015 (1.000-1.030) Urine Protein Negative mg/dL (NEG-TRACE) Urine Glucose (UA) 250 mg/dL (NEG) Urine Ketones (Stick) Negative mg/dL (NEG) Urine Blood Negative (NEG) Urine Nitrite Negative (NEG) Urine Bilirubin Negative (NEG) Urine Urobilinogen Dipstick 1.0 mg/dL (0.2 mg/dL) Urine Leukocyte Esterase Small (NEG) Urine RBC 0 /HPF (0-2) Urine WBC 5-10 /HPF (0-4) Urine Squamous Epithelial Cells Mod /LPF Urine Bacteria 0 /HPF (0-FEW) Urine Mucus Slight /LPF Urine Yeast Present /HPF Test 03/14/21 05:45 03/14/21 08:03 Sodium Level 134 mmol/L (136-145) Potassium Level 6.1 mmol/L (3.5-5.1) Chloride Level 100 mmol/L (98-107) Carbon Dioxide Level 30 mmol/L (21-32) Anion Gap 4 (6-14) Blood Urea Nitrogen 33 mg/dL (7-20) Creatinine 1.7 mg/dL (0.6-1.0) Estimated GFR (Cockcroft-Gault) 30.6 Glucose Level 263 mg/dL (70-99) Calcium Level 8.5 mg/dL (8.5-10.1) Glucose (Fingerstick) 252 mg/dL (70-99) Comment Review of Relevant I have reviewed the following items zuleyka (where applicable) has been applied. Medications: Current Medications Medications (Trade) Dose Ordered Sig/Yovanny Route PRN Reason Start Time Stop Time Status Last Admin Dose Admin Insulin Glargine (Lantus Syringe) 30 unit QHS SQ 03/13/21 21:00 03/13/21 21:30 Vancomycin HCl 2 gm/Sodium Chloride 500 ml @ 250 mls/hr Q12H IV 03/13/21 14:00 03/13/21 16:36 DC 03/13/21 14:58 Lactobacillus Rhamnosus (Culturelle) 1 cap BID PO 03/13/21 21:00 03/14/21 08:46 Daptomycin 550 mg/ Sodium Chloride 50 ml @ 100 mls/hr Q24H IV 03/13/21 17:00 03/13/21 21:00 Justifications for Admission Other Justification GRIS ORDONEZ MD Mar 14, 2021 09:21
[2021-03-14] MEDS ORDERED: CALCIUM GLUCONATE 1,000 MG/10 ML VIAL. IVP ONE (10:00)
[2021-03-14] MEDS ORDERED: INSULIN REGULAR 100 UNIT/ML 3ML VIAL. IV ONE (10:00)
[2021-03-14] MEDS ORDERED: DEXTROSE 50% 25 GM / 50ML DISP.SYRIN. IV ONE (10:00)
--- NOTE | 2021-03-14 11:32 | PDOC ---
[employer] PROGRESS NOTE Date of Service DOS: DATE: 03/14/21 TIME: 11:30 Chief Complaint Chief Complaint Diabetic foot ulcer with suspected acute osteomyelitis. History of diabetes COPD hypertension -Patient presented to outside hospital from wound care appointment due to worsening foot ulcers. Concern for osteomyelitis -Transferred here -Start patient on Vanco Zosyn. Will consult infectious disease. -Blood cultures were apparently obtained at outside facility -Podiatry consult -DVT prophylaxis -Home meds resumed as indicated -Diet as tolerated History of Present Illness History of Present Illness Patient is 60-year-old female presented to outside emergency department yesterday from her hot die press feeder office for further evaluation of left foot ulcerations. Patient is a known diabetic. Apparently when she was at her hot die press feeder yesterday there was some concern for osteomyelitis of the second metatarsal. Patient does report she has been feeling unwell and weak for a little over a week now. Patient's been having some new onset worsening erythema of her left foot. Visit hot die press feeder yesterday outlined the redness and attempt to go to emergency room but already expanded beyond that. 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 X-ray lower extremity concerning for osteomyelitis. When I evaluated patient she was complaining of some foot pain. 03/13 Late entry for 03 13. Patient evaluated and examined at bedside. Was complaining of some ongoing foot pain. Antibiotics started she is tolerating well. Consults to ID podiatry and nephrology. Plan of care discussed with bedside RN. 03/14 Patient evaluated and examined at bedside. Doing well resting in bed. Somewhat hyperkalemic today will try calcium insulin dextrose. For 1 dose. Will hold off until seen by nephrology in regards to trying Lasix for the hyperkalemia. Awaiting podiatry evaluation. Plan of care discussed bedside RN. Vitals/I&O Vitals/I&O: Vital Signs Date Time Temp Pulse Resp B/P (MAP) Pulse Ox O2 Delivery O2 Flow Rate FiO2 03/14/21 11:10 99 Nasal Cannula 2.0 03/14/21 07:00 98.0 125 18 94/61 (72) 98.0 I & O 03/13/21 03/13/21 03/14/21 15:00 23:00 07:00 Intake Total 750 ml 1000 ml 600 ml Balance 750 ml 1000 ml 600 ml Physical Exam General: Alert, Oriented X3, Cooperative Heart: Regular rate, Normal S1, Normal S2 Lungs: Clear Abdomen: Other (obese) Extremities: Other (previous toe amputation left) Skin: Other (Some erythema on left foot and ankle) Labs Labs: Laboratory Tests Test 03/13/21 11:38 03/13/21 17:35 03/13/21 19:20 03/13/21 20:26 Glucose (Fingerstick) 206 mg/dL (70-99) 297 mg/dL (70-99) 322 mg/dL (70-99) Urine Collection Type Unknown Urine Color Yellow Urine Clarity Clear Urine pH 5.0 (<5.0-8.0) Urine Specific [place] 1.015 (1.000-1.030) Urine Protein Negative mg/dL (NEG-TRACE) Urine Glucose (UA) 250 mg/dL (NEG) Urine Ketones (Stick) Negative mg/dL (NEG) Urine Blood Negative (NEG) Urine Nitrite Negative (NEG) Urine Bilirubin Negative (NEG) Urine Urobilinogen Dipstick 1.0 mg/dL (0.2 mg/dL) Urine Leukocyte Esterase Small (NEG) Urine RBC 0 /HPF (0-2) Urine WBC 5-10 /HPF (0-4) Urine Squamous Epithelial Cells Mod /LPF Urine Bacteria 0 /HPF (0-FEW) Urine Mucus Slight /LPF Urine Yeast Present /HPF Test 03/14/21 05:45 03/14/21 08:03 03/14/21 10:39 Sodium Level 134 mmol/L (136-145) Potassium Level 6.1 mmol/L (3.5-5.1) Chloride Level 100 mmol/L (98-107) Carbon Dioxide Level 30 mmol/L (21-32) Anion Gap 4 (6-14) Blood Urea Nitrogen 33 mg/dL (7-20) Creatinine 1.7 mg/dL (0.6-1.0) Estimated GFR (Cockcroft-Gault) 30.6 Glucose Level 263 mg/dL (70-99) Calcium Level 8.5 mg/dL (8.5-10.1) Glucose (Fingerstick) 252 mg/dL (70-99) 333 mg/dL (70-99) Comment Review of Relevant I have reviewed the following items zuleyka (where applicable) has been applied. Medications: Current Medications Medications (Trade) Dose Ordered Sig/Yovanny Route PRN Reason Start Time Stop Time Status Last Admin Dose Admin Insulin Glargine (Lantus Syringe) 30 unit QHS SQ 03/13/21 21:00 03/13/21 21:30 Vancomycin HCl 2 gm/Sodium Chloride 500 ml @ 250 mls/hr Q12H IV 03/13/21 14:00 03/13/21 16:36 DC 03/13/21 14:58 Lactobacillus Rhamnosus (Culturelle) 1 cap BID PO 03/13/21 21:00 03/14/21 08:46 Daptomycin 550 mg/ Sodium Chloride 50 ml @ 100 mls/hr Q24H IV 03/13/21 17:00 03/13/21 21:00 Justifications for Admission Other Justification GRIS ORDONEZ MD Mar 14, 2021 11:32
--- NOTE | 2021-03-14 13:01 | PDOC ---
DATE OF SERVICE DATE: 03/14/21 TIME: 12:57 SUBJECTIVE ROS Doing well resting in bed OBJECTIVE Vital Signs Vital Signs Date Time Temp Pulse Resp B/P (MAP) Pulse Ox O2 Delivery O2 Flow Rate FiO2 03/14/21 12:17 20 99 Nasal Cannula 3.0 03/14/21 07:00 98.0 125 94/61 (72) 98.0 I & 0 Intake and Output 03/14/21 07:00 Intake Total 2350 ml Balance 2350 ml Intake Oral 1700 ml IV Total 650 ml # Voids 6 PHYSICAL EXAM Physical Exam GEN: Obese, NAD HEENT: Normal cephalic, atraumatic, OM moist, anicteric NECK: Supple, no JVD LUNGS: Clear to auscultation , Non labored HEART: RRR, ABDOMEN: Soft, nontender. Obese EXTREMITIES: Prior amputation of left second metatarsal. Erythema on the left foot extending up the ankle. Sole of left foot has 2 ulcers present. Changes of CVI + Bilat LE . Lt LE edema + NEUROLOGIC A&O x 3, no obvious focal deficits PSYCHIATRIC: Normal affect, normal mood. Stable SKIN: No rashes, Changes of CVI+ No Abarca, No CVA or SP tenderness Vital Signs Vital Signs Date Time Temp Pulse Resp B/P (MAP) Pulse Ox O2 Delivery O2 Flow Rate FiO2 03/13/21 11:37 Nasal Cannula 3.0 03/13/21 11:00 97.6 65 18 112/36 (61) 95 97.6 DIAGNOSIS/ASSESSMENT Assessment & Plan LYNNETTE - Baseline from [place] Cr 1.3 , Per Consult placed by PCP Cr of 3.2- I could not find any records with this Creatinine. Reviewed available records from [facility] as well as li RN UOP not recorded , strict I/O , avoid Nephrotoxins (Monitor Vanc levels ) , ,Maintain hydration , monitor labs HypoNatremia- Normal Na after correcting for hyperglycemia HyperKalemia- Dced Aldactone yesterday , will dc Lisinopril as well , Kayexalate prn . Low K diet Diabetic foot ulcer with suspected acute osteomyelitis- Currently on Abx Vanco Zosyn. infectious disease. consulted HTN- On multiple antihypertensives . Also on Torsemide, Aldactone, small dose CHI-I . BP Low Normal, Hold Antihypertensives/Diuretics if Hypotensive DM per primary Anemia- Hgb < 10 , defer [place] to primary COMMENT/RELEVANT DATA Meds Current Medications Medications (Trade) Dose Ordered Sig/Yovanny Start Time Stop Time Status Last Admin Dose Admin Acetaminophen (Tylenol) 650 mg PRN Q6HRS PRN 03/13/21 00:00 Albuterol/ Ipratropium (Duoneb) 3 ml RTQID 03/13/21 08:00 03/14/21 11:10 3 ML Alprazolam (Xanax) 0.25 mg PRN TID PRN 03/13/21 00:00 Amlodipine Besylate (Norvasc) 5 mg DAILY 03/13/21 09:00 03/13/21 08:36 5 MG Calcium Carbonate/ Glycine (Tums) 500 mg PRN Q3HRS PRN 03/13/21 00:00 Calcium Gluconate (Calcium Gluconate) 1,000 mg 1X ONCE 03/14/21 10:00 03/14/21 10:01 DC 03/14/21 12:19 1,000 MG Carvedilol (Coreg) 25 mg BIDWMEALS 03/13/21 08:00 03/13/21 17:40 25 MG Clopidogrel Bisulfate (Plavix) 75 mg DAILY 03/13/21 09:00 03/14/21 08:46 75 MG Daptomycin 550 mg/ Sodium Chloride 50 ml @ 100 mls/hr Q24H 03/13/21 17:00 03/13/21 21:00 100 MLS/HR Dextrose (Dextrose 50%-Water Syringe) 25 gm 1X ONCE 03/14/21 10:00 03/14/21 10:01 DC 03/14/21 12:19 25 GM Duloxetine HCl (Cymbalta) 30 mg DAILY 03/13/21 09:00 03/14/21 08:46 30 MG EZETIMIBE (Zetia) 10 mg DAILY 03/13/21 09:00 03/14/21 08:46 10 MG Gabapentin (Neurontin) 600 mg TID 03/13/21 09:00 03/14/21 08:46 600 MG Heparin Sodium (Porcine) (Heparin Sodium) 5,000 unit Q8HRS 03/13/21 06:00 03/14/21 05:30 5,000 UNIT Info (Non-Icu Electrolyte Protocol) 1 ea PRN DAILY PRN 03/13/21 00:00 Insulin Glargine (Lantus Syringe) 30 unit QHS 03/13/21 21:00 03/13/21 21:30 30 UNIT Insulin Human Lispro (HumaLOG) 10 units TIDWMEALS 03/13/21 08:00 03/14/21 08:56 10 UNITS Insulin Human Regular (HumuLIN R VIAL) 10 unit 1X ONCE 03/14/21 10:00 03/14/21 10:01 DC Lactobacillus Rhamnosus (Culturelle) 1 cap BID 03/13/21 21:00 03/14/21 08:46 1 CAP Lisinopril (Prinivil) 5 mg DAILY 03/13/21 09:00 03/13/21 08:35 5 MG Non-Formulary Medication (Pravastatin Sodium ) 1 tab DAILY 03/13/21 09:00 UNV Non-Formulary Medication (Tiotropium [place] (Spiriva Respimat)) 2.5 mcg DAILY 03/13/21 09:00 UNV Ondansetron HCl (Zofran) 4 mg PRN Q6HRS PRN 03/13/21 00:00 Oxycodone HCl (Roxicodone) 5 mg PRN Q3HRS PRN 03/13/21 00:00 03/13/21 21:28 5 MG Oxycodone/ Acetaminophen (Percocet 5/325) 2 tab PRN Q4HRS PRN 03/13/21 00:00 03/14/21 12:17 2 TAB Piperacillin Sod/ Tazobactam Sod (Zosyn Per Pharmacy) 1 each PRN DAILY PRN 03/13/21 00:15 Piperacillin Sod/ Tazobactam Sod 3.375 gm/Sodium Chloride 50 ml @ 100 mls/hr Q6HRS 03/13/21 01:00 03/14/21 05:25 100 MLS/HR Senna/Docusate Sodium (Senna Plus) 1 tab BID 03/13/21 09:00 03/14/21 08:46 1 TAB Spironolactone (Aldactone) 25 mg DAILY 03/13/21 09:00 03/13/21 15:18 DC 03/13/21 08:38 25 MG Torsemide (Demadex) 20 mg DAILY 03/13/21 09:00 03/14/21 08:47 20 MG Tramadol HCl (Ultram) 50 mg PRN Q6HRS PRN 03/13/21 00:00 Vancomycin HCl (Vanco Per Pharmacy) 1 each PRN DAILY PRN 03/13/21 00:15 03/13/21 16:38 DC 03/13/21 04:11 1 EACH Vancomycin HCl (Vancomycin Trough Level) 1 each 1X ONCE 03/14/21 13:30 03/13/21 16:38 DC Vancomycin HCl 2 gm/Sodium Chloride 500 ml @ 250 mls/hr Q12H 03/13/21 14:00 03/13/21 16:36 DC 03/13/21 14:58 250 MLS/HR Zolpidem Tartrate (Ambien) 5 mg PRN QHS PRN 03/13/21 00:00 03/13/21 21:26 5 MG Lab Laboratory Tests Test 03/13/21 17:35 03/13/21 19:20 03/13/21 20:26 03/14/21 05:45 Glucose (Fingerstick) 297 mg/dL (70-99) 322 mg/dL (70-99) Urine Collection Type Unknown Urine Color Yellow Urine Clarity Clear Urine pH 5.0 (<5.0-8.0) Urine Specific [place] 1.015 (1.000-1.030) Urine Protein Negative mg/dL (NEG-TRACE) Urine Glucose (UA) 250 mg/dL (NEG) Urine Ketones (Stick) Negative mg/dL (NEG) Urine Blood Negative (NEG) Urine Nitrite Negative (NEG) Urine Bilirubin Negative (NEG) Urine Urobilinogen Dipstick 1.0 mg/dL (0.2 mg/dL) Urine Leukocyte Esterase Small (NEG) Urine RBC 0 /HPF (0-2) Urine WBC 5-10 /HPF (0-4) Urine Squamous Epithelial Cells Mod /LPF Urine Bacteria 0 /HPF (0-FEW) Urine Mucus Slight /LPF Urine Yeast Present /HPF Sodium Level 134 mmol/L (136-145) Potassium Level 6.1 mmol/L (3.5-5.1) Chloride Level 100 mmol/L (98-107) Carbon Dioxide Level 30 mmol/L (21-32) Anion Gap 4 (6-14) Blood Urea Nitrogen 33 mg/dL (7-20) Creatinine 1.7 mg/dL (0.6-1.0) Estimated GFR (Cockcroft-Gault) 30.6 Glucose Level 263 mg/dL (70-99) Calcium Level 8.5 mg/dL (8.5-10.1) Test 03/14/21 08:03 03/14/21 10:39 Glucose (Fingerstick) 252 mg/dL (70-99) 333 mg/dL (70-99) Results All relevant outside records, renal labs, imaging studies, telemetry/EKG's were reviewed. Justicifation of Admission Dx: Justifications for Admission: Justification of Admission Dx: N/A MILDRED BUCK MD Mar 14, 2021 13:01
[2021-03-14] MEDS: CARVEDILOL 12.5 MG TABLET. PO SCH ×2 (13:13→19:02)
[2021-03-14] MEDS ORDERED: SODIUM POLYSTYRENE SULFON/SORB 15 GM/60 ML ORAL.SUSP. PO ONE (14:00)
[2021-03-14 15:00] VITALS: BP 147/42
[2021-03-14 19:00] VITALS: BP 136/64
[2021-03-14] MEDS: INSULIN GLARGINE SYRINGE. SQ SCH (21:49)
[2021-03-14] MEDS: DAPTOmycin (GENERIC) IVPB 550 MG in IV NORMAL SALINE 50ML 50 ML IV SCH (22:22)
[2021-03-14 22:44] VITALS: BP 151/55
[2021-03-15] VITALS (7 sets, daily range): BP systolic 115–195; BP diastolic 40–76
[2021-03-15] MEDS: PIPERACILLIN/TAZOBACTAM 3.375 GM in IV NORMAL SALINE 50ML 50 ML IV SCH ×4 (00:13→18:00)
[2021-03-15] MEDS: HEPARIN for SUB-Q USE 5,000 UNIT/ML VIAL. SQ SCH ×3 (05:59→21:33)
[2021-03-15] MEDS: oxyCODONE/APAP 5/325 1 TAB TABLET PO PRN ×3 (06:14→21:22)
[2021-03-15 07:10] LABS: BASO % 1 % (0-3); EOS # 0.3 x10^3/uL (0.0-0.7); EOS % 6 % (0-3); HEMATOCRIT 27.3 % (36.0-47.0); LYMPH % 22 % (24-48); MEAN CORPUSCULAR HEMOGLOBIN 27 pg (25-35); MEAN CORPUSCULAR HGB CONC 33 g/dL (31-37); MEAN CORPUSCULAR VOLUME 83 fL (79-100); MONO # 0.5 x10^3/uL (0.0-1.1); MONO % 11 % (0-9); NEUT # 2.8 x10^3/uL (1.8-7.7); NEUT % 60 % (31-73); PLATELET COUNT 314 x10^3/uL (140-400); RED BLOOD COUNT 3.28 x10^6/uL (3.50-5.40); RED CELL DISTRIBUTION WIDTH 13.7 % (11.5-14.5); WHITE BLOOD COUNT 4.7 x10^3/uL (4.0-11.0)
[2021-03-15] MEDS: IPRATRPIUM/ALBUTEROL 0.5/2.5MG 3 ML NEBU. NEB SCH ×4 (07:54→19:37)
[2021-03-15] MEDS: LACTOBACILLUS RHAMNOSUS GG 1 CAPSULE. PO SCH ×2 (08:26→21:21)
[2021-03-15] MEDS: GABAPENTIN 300 MG CAPSULE. PO SCH ×3 (08:26→21:22)
[2021-03-15] MEDS: DULoxetine HCL 30 MG CAPSULE.DR PO SCH (08:26)
[2021-03-15] MEDS: EZETIMIBE 10 MG TABLET. PO SCH (08:26)
[2021-03-15] MEDS: CLOPIDOGREL BISULFATE 75 MG TABLET PO SCH (08:27)
[2021-03-15] MEDS: SENNOSIDES/DOCUSATE 8.6/50MG TABLET. PO SCH ×2 (08:27→21:22)
[2021-03-15] MEDS: CARVEDILOL 12.5 MG TABLET. PO SCH ×2 (08:27→17:00)
[2021-03-15] MEDS: TORSEMIDE 20 MG TABLET. PO SCH (08:27)
[2021-03-15] MEDS: oxyCODONE IR 5 MG TABLET PO PRN (08:28)
[2021-03-15] MEDS: INSULIN LISPRO 300 UNITS/3 ML VIAL. SQ SCH ×3 (08:33→17:00)
[2021-03-15] MEDS: NON FORMULARY ITEM (Pravastatin Sodium 1 TAB) PO SCH (09:00)
--- NOTE | 2021-03-15 09:30 | PDOC ---
Infectious Disease Note Subjective: Subjective Patient feels about the same Continues to have swelling and pain in the left lower extremity Denies any fever, chills, nausea, vomiting, diarrhea, abdominal pain, shortness of breath Vital Signs: Vital Signs Vital Signs Date Time Temp Pulse Resp B/P (MAP) Pulse Ox O2 Delivery O2 Flow Rate FiO2 03/15/21 08:28 Nasal Cannula 3.0 03/15/21 08:27 73 134/61 03/15/21 07:55 95 03/15/21 07:00 98.0 18 98.0 Physical Exam: PHYSICAL EXAM GEN: Well developed and well nourished female in nad sitting up in chair HEENT: Perrl and EOMI Normal cephalic, atraumatic, OM moist, anicteric NECK: Supple, no JVD LUNGS: Clear bilaterally HEART: RRR, ABDOMEN: Soft, nontender. Obese BS + EXTREMITIES: Prior amputation of left second metatarsal. Erythema on the left foot extending up the ankle. left plantar foot has 2 ulcers present. BLE 1-2 + edema + Chronic venous insuffiency NEUROLOGIC A&O x 3, no obvious focal deficits PSYCHIATRIC: Normal affect, normal mood. Stable SKIN: No rashes, Changes of CVI+ No Abarca, No CVA or SP tenderness Medications: Inpatient Meds: Medications reviewed. Labs: Lab Laboratory Tests Test 03/14/21 10:39 03/14/21 17:09 03/14/21 18:54 03/14/21 21:43 Glucose (Fingerstick) 333 mg/dL (70-99) 288 mg/dL (70-99) 304 mg/dL (70-99) 252 mg/dL (70-99) Test 03/15/21 06:25 03/15/21 07:32 White Blood Count 4.7 x10^3/uL (4.0-11.0) Red Blood Count 3.28 x10^6/uL (3.50-5.40) Hemoglobin 9.0 g/dL (12.0-15.5) Hematocrit 27.3 % (36.0-47.0) Mean Corpuscular Volume 83 fL (79-100) Mean Corpuscular Hemoglobin 27 pg (25-35) Mean Corpuscular Hemoglobin Concent 33 g/dL (31-37) Red Cell Distribution Width 13.7 % (11.5-14.5) Platelet Count 314 x10^3/uL (140-400) Neutrophils (%) (Auto) 60 % (31-73) Lymphocytes (%) (Auto) 22 % (24-48) Monocytes (%) (Auto) 11 % (0-9) Eosinophils (%) (Auto) 6 % (0-3) Basophils (%) (Auto) 1 % (0-3) Neutrophils # (Auto) 2.8 x10^3/uL (1.8-7.7) Lymphocytes # (Auto) 1.0 x10^3/uL (1.0-4.8) Monocytes # (Auto) 0.5 x10^3/uL (0.0-1.1) Eosinophils # (Auto) 0.3 x10^3/uL (0.0-0.7) Basophils # (Auto) 0.0 x10^3/uL (0.0-0.2) Glucose (Fingerstick) 227 mg/dL (70-99) Objective: Assessment: Lt plantar wounds, callus ,cellulitis , Possible OM DM with neuropathy Renal insuffiency H/O Lt 2nd toe partial amputation HTN Chr venous insuffiency Anemia A Plan: Plan of Care Cont Zosyn may need renal dosing Dapto CT left lower extremity without contrast rule out abscess or osteomyelitis Local wound care Off load Monitor labs and cultures D/W NOHEMI MEJIAS MD Mar 15, 2021 09:30
--- NOTE | 2021-03-15 10:24 | PDOC ---
Renal-Progress Notes Subjective Notes Notes NO NEW COMPLAINTS History of Present Illness Hx of present illness STABLE Vitals Vitals Vital Signs Date Time Temp Pulse Resp B/P (MAP) Pulse Ox O2 Delivery O2 Flow Rate FiO2 03/15/21 08:28 Nasal Cannula 3.0 03/15/21 08:27 73 134/61 03/15/21 07:55 95 03/15/21 07:00 98.0 18 98.0 Weight Weight [ ] I.O. Intake and Output Intake and Output 03/15/21 07:00 Output Total 700 ml Balance -700 ml Output Urine Total 700 ml Labs Labs Laboratory Tests Test 03/14/21 10:39 03/14/21 17:09 03/14/21 18:54 03/14/21 21:43 Glucose (Fingerstick) 333 mg/dL (70-99) 288 mg/dL (70-99) 304 mg/dL (70-99) 252 mg/dL (70-99) Test 03/15/21 06:25 03/15/21 07:32 White Blood Count 4.7 x10^3/uL (4.0-11.0) Red Blood Count 3.28 x10^6/uL (3.50-5.40) Hemoglobin 9.0 g/dL (12.0-15.5) Hematocrit 27.3 % (36.0-47.0) Mean Corpuscular Volume 83 fL (79-100) Mean Corpuscular Hemoglobin 27 pg (25-35) Mean Corpuscular Hemoglobin Concent 33 g/dL (31-37) Red Cell Distribution Width 13.7 % (11.5-14.5) Platelet Count 314 x10^3/uL (140-400) Neutrophils (%) (Auto) 60 % (31-73) Lymphocytes (%) (Auto) 22 % (24-48) Monocytes (%) (Auto) 11 % (0-9) Eosinophils (%) (Auto) 6 % (0-3) Basophils (%) (Auto) 1 % (0-3) Neutrophils # (Auto) 2.8 x10^3/uL (1.8-7.7) Lymphocytes # (Auto) 1.0 x10^3/uL (1.0-4.8) Monocytes # (Auto) 0.5 x10^3/uL (0.0-1.1) Eosinophils # (Auto) 0.3 x10^3/uL (0.0-0.7) Basophils # (Auto) 0.0 x10^3/uL (0.0-0.2) Erythrocyte Sedimentation Rate 92 (0-25) Glucose (Fingerstick) 227 mg/dL (70-99) Micro Micro Microbiology 03/13/21 Blood Culture - Preliminary, Resulted NO GROWTH AFTER 2 DAYS Review of Systems Constitutional: yes: weakness, alert, oriented Ears/Nose/Throat: Yes: no symptom reported Eyes: Yes: no symptom reported Pulmonary: Yes no symptom reported Cardiovascular: Yes no symptom reported Gastrointestional: Yes: constipation Genitourinary: Yes: no symptom reported Musculoskeletal: Yes: foot pain Skin: Yes no symptom reported Psychiatric/Neurological: Yes: no symptom reported Endocrine: Yes: no symptom reported Physical Exam General Appearance: no apparent distress Skin: warm Respiratory: bilateral CTA Heart: S1S2 Abdomen: soft, bowel sounds present Genitourinary: bladder flat Extremities: pulses present Neurology: alert, oriented Musculoskeletal: Osteoarthritis Assessment Assessment IMP LYNNETTE WITH CR OF 1.7 CKD STAGE 3 WITH CR OF ABOUT 1.3 HYPERKALEMIA DM WITH NEUROPAHTY LEFT FOOT WOUND HX OF HTN PLAN K BINDER GIVEN YESTERDAY CONT TO HOLD CHI-I AND K SPARING DIURETICS CONT TORSEMIDE NO LABS TODAY HAVE ORDERED LABS AND ASKED NURSE TO CONTACT ME WHEN RESULTS ARE IN WILL FOLLOW KHALIDA ZHANG MD Mar 15, 2021 10:24
--- NOTE | 2021-03-15 10:37 | NUR ---
SW following. Discussed with RN, pt from home, 3L (uses oxygen at home), cardiac diet. Therapy recommending home. Currently on IV abx. CT to rule out osteo today. SW will continue to follow.
--- NOTE | 2021-03-15 10:52 | RAD ---
EXAMINATION: CT LEFT LOWER EXTREMITY WITHOUT IV CONTRAST CLINICAL HISTORY: Left foot pain concerning for osteomyelitis/abscess TECHNIQUE: Noncontrast serial axial images obtained of the left foot and ankle with sagittal and maddison nal reconstructions. CT Dose Reduction Employed: One or more of the following individualized dose reduction techniques wer e utilized for this examination: 1. Automated exposure control 2. Adjustment of the mA and/or kV ac cording to patient size 3. Use of iterative reconstruction technique. COMPARISON: Left foot radiographs 03/12/2021 FINDINGS: Postoperative changes related to second toe amputation. Tiny cutaneous irregularity at the surgical b ed, possibly related to scarring along the incision site but a superficial ulcer is not excluded. Dif fuse skin thickening and subcutaneous edema, greatest along the dorsal aspect of the foot and lateral aspect of the foot and ankle. No definitively visualized organized collection to suggest an abscess on limited noncontrast evaluation. No subcutaneous emphysema. No evidence of osseous destruction, erosion, or focal osteopenia. Minimal degenerative changes. Small plantar and posterior calcaneal enthesophytes. IMPRESSION: Soft tissue changes in the foot and ankle as described, nonspecific but can be seen with cellulitis i n the appropriate clinical setting. No evidence of abscess on limited noncontrast evaluation. Postoperative changes related to second toe amputation. No evidence of osteomyelitis. If clinical con cern for osteomyelitis persists, MRI is recommended for further evaluation. Electronically signed by: Norberto Montiel DO (03/15/2021 10:50 AM) LOI
[2021-03-15 10:58] LABS: CALCIUM 8.9 mg/dL (8.5-10.1); CREATININE 1.1 mg/dL (0.6-1.0); GFR 50.5; POTASSIUM 4.9 mmol/L (3.5-5.1)
--- NOTE | 2021-03-15 11:15 | PDOC ---
[facility] PROGRESS NOTE Date of Service DOS: DATE: 03/15/21 TIME: 11:07 Chief Complaint Chief Complaint Diabetic foot ulcer with suspected acute osteomyelitis. Diabetes - a1c 11.4 COPD Hypertension Hyperkalemia LYNNETTE - vasomotor nephropathy -Patient presented to outside hospital from wound care appointment due to worsening foot ulcers. Concern for osteomyelitis -Transferred here -Start patient on Vanco Zosyn. Will consult infectious disease. -Blood cultures were apparently obtained at outside facility -Podiatry consult -DVT prophylaxis -Home meds resumed as indicated -Diet as tolerated History of Present Illness History of Present Illness Patient is 60-year-old female presented to outside emergency department yesterday from her ending machine operator office for further evaluation of left foot ulcerations. Patient is a known diabetic. Apparently when she was at her ending machine operator yesterday there was some concern for osteomyelitis of the second metatarsal. Patient does report she has been feeling unwell and weak for a little over a week now. Patient's been having some new onset worsening erythema of her left foot. Visit ending machine operator yesterday outlined the redness and attempt to go to emergency room but already expanded beyond that. 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 X-ray lower extremity concerning for osteomyelitis. When I evaluated patient she was complaining of some foot pain. 03/13 Late entry for 03 13. Patient evaluated and examined at bedside. Was complaining of some ongoing foot pain. Antibiotics started she is tolerating well. Consults to ID podiatry and nephrology. Plan of care discussed with bedside RN. 03/14 Patient evaluated and examined at bedside. Doing well resting in bed. Somewhat hyperkalemic today will try calcium insulin dextrose. For 1 dose. Will hold off until seen by nephrology in regards to trying Lasix for the hyperkalemia. Awaiting podiatry evaluation. Plan of care discussed bedside RN. Creatinine improved to 1.1 K4.9 glucose in the 200s. WBC 4.7 sed rate 92 CRP [address] left foot with no notable findings. Vitals/I&O Vitals/I&O: Vital Signs Date Time Temp Pulse Resp B/P (MAP) Pulse Ox O2 Delivery O2 Flow Rate FiO2 03/15/21 11:00 98.0 73 18 115/40 (65) 96 Nasal Cannula 3.0 98.0 I & O 03/14/21 03/14/21 03/15/21 15:00 23:00 07:00 Output Total 700 ml Balance -700 ml Physical Exam Physical Exam: GEN: Well developed and well nourished female in nad sitting up in chair HEENT: Perrl and EOMI Normal cephalic, atraumatic, OM moist, anicteric NECK: Supple, no JVD LUNGS: Clear bilaterally HEART: RRR, ABDOMEN: Soft, nontender. Obese BS + EXTREMITIES: Prior amputation of left second metatarsal. Erythema on the left foot extending up the ankle. left plantar foot has 2 ulcers present. BLE 1-2 + edema + Chronic venous insuffiency NEUROLOGIC A&O x 3, no obvious focal deficits PSYCHIATRIC: Normal affect, normal mood. Stable SKIN: No rashes, Changes of CVI+ No Abarca, No CVA or SP tenderness General: Alert, Oriented X3, Cooperative Heart: Regular rate, Normal S1, Normal S2 Lungs: Clear Abdomen: Other (obese) Extremities: Other (previous toe amputation left) Skin: Other (Some erythema on left foot and ankle) Labs Labs: Laboratory Tests Test 03/14/21 17:09 03/14/21 18:54 03/14/21 21:43 03/15/21 06:25 Glucose (Fingerstick) 288 mg/dL (70-99) 304 mg/dL (70-99) 252 mg/dL (70-99) White Blood Count 4.7 x10^3/uL (4.0-11.0) Red Blood Count 3.28 x10^6/uL (3.50-5.40) Hemoglobin 9.0 g/dL (12.0-15.5) Hematocrit 27.3 % (36.0-47.0) Mean Corpuscular Volume 83 fL (79-100) Mean Corpuscular Hemoglobin 27 pg (25-35) Mean Corpuscular Hemoglobin Concent 33 g/dL (31-37) Red Cell Distribution Width 13.7 % (11.5-14.5) Platelet Count 314 x10^3/uL (140-400) Neutrophils (%) (Auto) 60 % (31-73) Lymphocytes (%) (Auto) 22 % (24-48) Monocytes (%) (Auto) 11 % (0-9) Eosinophils (%) (Auto) 6 % (0-3) Basophils (%) (Auto) 1 % (0-3) Neutrophils # (Auto) 2.8 x10^3/uL (1.8-7.7) Lymphocytes # (Auto) 1.0 x10^3/uL (1.0-4.8) Monocytes # (Auto) 0.5 x10^3/uL (0.0-1.1) Eosinophils # (Auto) 0.3 x10^3/uL (0.0-0.7) Basophils # (Auto) 0.0 x10^3/uL (0.0-0.2) Erythrocyte Sedimentation Rate 92 (0-25) Sodium Level 136 mmol/L (136-145) Potassium Level 4.9 mmol/L (3.5-5.1) Chloride Level 100 mmol/L (98-107) Carbon Dioxide Level 30 mmol/L (21-32) Anion Gap 6 (6-14) Blood Urea Nitrogen 26 mg/dL (7-20) Creatinine 1.1 mg/dL (0.6-1.0) Estimated GFR (Cockcroft-Gault) 50.5 Glucose Level 222 mg/dL (70-99) Calcium Level 8.9 mg/dL (8.5-10.1) Test 03/15/21 07:32 03/15/21 10:32 Glucose (Fingerstick) 227 mg/dL (70-99) 182 mg/dL (70-99) Comment Review of Relevant I have reviewed the following items zuleyka (where applicable) has been applied. Medications: Current Medications Medications (Trade) Dose Ordered Sig/Yovanny Route PRN Reason Start Time Stop Time Status Last Admin Dose Admin Insulin Human Lispro (HumaLOG) 15 units TIDWMEALS SQ 03/14/21 17:00 03/15/21 08:33 Insulin Glargine (Lantus Syringe) 40 unit QHS SQ 03/14/21 21:00 03/14/21 21:49 Sodium Polystyrene Sulfonate (Kayexalate) 15 gm 1X ONCE PO 03/14/21 14:00 03/14/21 14:01 DC 03/14/21 13:20 Justifications for Admission Other Justification GRIS HORN MD Mar 15, 2021 11:15
--- NOTE | 2021-03-15 15:59 | NUR ---
Wound Care Wound care consult for left foot wound. Dr George already saw pt today and will follow up again tomorrow. WC will sign off at this time
--- NOTE | 2021-03-15 16:20 | PDOC2 ---
CONSULT Date of Consult Date of Consult DATE: 03/15/21 TIME: 16:08 Reason for Consult Reason for Consult: Left foot ulcer and cellulitis History of Present Illness Reason for Visit: Patient was admitted for left foot cellulitis, diabetic foot ulcer that has been present for 2 weeks without any inciting events. Due to underlying peripheral neuropathy, patient does not recall any traumatic event or the evolution of the left foot ulcer. He was seen by an outside jeeper operator whom concerned about underlying soft tissue infection and osteomyelitis in the setting of new onset of fever, chills, and then referred patient to [facility] [place] and then inpatient for IV antibiotics. Per chart review, patient was placed on vancomycin and Zosyn for broad-spectrum coverage. Blood culture was taken and wound culture was taken at the jeeper operator office. At bedside, patient relates mild discomfort to the left plantar forefoot. She denies any antibiotic therapy, drainage, or self dressing change prior to admission. The fever and chills have improved since hospital admission. However, the redness and swelling to left lower extremity has been recurrent and chronic at baseline. 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 She is doctored at [facility]. She lives with family with adequate home support. Past Medical History Cardiovascular: CAD, HTN, Hyperlipidemia Pulmonary: COPD CENTRAL NERVOUS SYSTEM: Periperal neuropathy GI: Constipation, Other Heme/Onc: No pertinent hx Hepatobiliary: No pertinent hx Psych: No pertinent hx Musculoskeletal: Osteoarthritis Infectious disease: No pertinent hx Renal/: No pertinent hx Endocrine: Diabetes Past Surgical History Past Surgical History: Cholecystectomy, Hernia Repair, Other Family History Family History: Coronary Artery Disease Social History ALCOHOL: none Drugs: None Lives: with Family Domestic Violence: Neg Current Medications Current Medications Current Medications Ondansetron HCl (Zofran) 4 mg PRN Q6HRS PRN IVP NAUSEA/VOMITING 1ST CHOICE; Start 03/13/21 at 00:00 Calcium Carbonate/ Glycine (Tums) 500 mg PRN Q3HRS PRN PO UPSET STOMACH; Start 03/13/21 at 00:00 Zolpidem Tartrate (Ambien) 5 mg PRN QHS PRN PO INSOMNIA, MAY REPEAT IN 1HR Last administered on 03/13/21at 21:26; Start 03/13/21 at 00:00 Info (Non-Icu Electrolyte Protocol) 1 ea PRN DAILY PRN MC SEE COMMENTS; Start 03/13/21 at 00:00 Oxycodone HCl (Roxicodone) 5 mg PRN Q3HRS PRN PO BREAKTHROUGH PAIN Last adminis tered on 03/15/21 08:28; Start 03/13/21 at 00:00 Oxycodone/ Acetaminophen (Percocet 5/325) 1 tab PRN Q4HRS PRN PO MODERATE PAIN; Start 03/13/21 at 00:00 Oxycodone/ Acetaminophen (Percocet 5/325) 2 tab PRN Q4HRS PRN PO SEVERE PAIN Last administered on 03/15/21 13:31; Start 03/13/21 at 00:00 Acetaminophen (Tylenol) 650 mg PRN Q6HRS PRN PO Headaches, Temp > 101.5F; Start 03/13/21 at 00:00 Senna/Docusate Sodium (Senna Plus) 1 tab BID PO Last administered on 03/15/21 08:27; Start 03/13/21 at 09:00 Heparin Sodium (Porcine) (Heparin Sodium) 5,000 unit Q8HRS SQ Last administered on 03/15/21 13:39; Start 03/13/21 at 06:00 Alprazolam (Xanax) 0.25 mg PRN TID PRN PO ANXIETY / AGITATION; Start 03/13/21 at 00:00 Amlodipine Besylate (Norvasc) 5 mg DAILY PO Last administered on 03/15/21 08:27; Start 03/13/21 at 09:00 Clopidogrel Bisulfate (Plavix) 75 mg DAILY PO Last administered on 03/15/21 08:27; Start 03/13/21 at 09:00 Duloxetine HCl (Cymbalta) 30 mg DAILY PO Last administered on 03/15/21 08:26; Start 03/13/21 at 09:00 EZETIMIBE (Zetia) 10 mg DAILY PO Last administered on 03/15/21 08:26; Start 03/13/21 at 09:00 Lisinopril (Prinivil) 5 mg DAILY PO Last administered on 03/13/21at 08:35; Start 03/13/21 at 09:00; Stop 03/14/21 at 13:00; Status DC Spironolactone (Aldactone) 25 mg DAILY PO Last administered on 03/13/21at 08:38; Start 03/13/21 at 09:00; Stop 03/13/21 at 15:18; Status DC Torsemide (Demadex) 20 mg DAILY PO Last administered on 03/15/21at 08:27; Start 03/13/21 at 09:00 Tramadol HCl (Ultram) 50 mg PRN Q6HRS PRN PO MILD PAIN 1-3; Start 03/13/21 at 00:00 Carvedilol (Coreg) 25 mg BIDWMEALS PO Last administered on 03/15/21at 08:27; Start 03/13/21 at 08:00 Gabapentin (Neurontin) 600 mg TID PO Last administered on 03/15/21at 13:30; Start 03/13/21 at 09:00 Insulin Human Lispro (HumaLOG) 10 units TIDWMEALS SQ Last administered on 03/14/21at 08:56; Start 03/13/21 at 08:00; Stop 03/14/21 at 13:10; Status DC Insulin Glargine (Lantus Syringe) 30 unit QHS SQ Last administered on 03/13/21at 21:30; Start 03/13/21 at 21:00; Stop 03/14/21 at 13:11; Status DC Non-Formulary Medication (Pravastatin Sodium ) 1 tab DAILY PO ; Start 03/13/21 at 09:00; Status UNV Non-Formulary Medication (Tiotropium [place] (Spiriva Respimat)) 2.5 mcg DAILY IH ; Start 03/13/21 at 09:00; Status UNV Vancomycin HCl (Vanco Per Pharmacy) 1 each PRN DAILY PRN MC SEE COMMENTS Last administered on 03/13/21at 04:11; Start 03/13/21 at 00:15; Stop 03/13/21 at 16:38; Status DC Piperacillin Sod/ Tazobactam Sod (Zosyn Per Pharmacy) 1 each PRN DAILY PRN MC SEE COMMENTS; Start 03/13/21 at 00:15 Albuterol/ Ipratropium (Duoneb) 3 ml RTQID NEB Last administered on 03/15/21at 11:13; Start 03/13/21 at 08:00 Piperacillin Sod/ Tazobactam Sod 3.375 gm/Sodium Chloride 50 ml @ 100 mls/hr Q6HRS IV Last administered on 03/15/21at 13:34; Start 03/13/21 at 01:00 Vancomycin HCl 2 gm/Sodium Chloride 500 ml @ 250 mls/hr 1X ONCE IV Last admi nistered on 03/13/21at 02:00; Start 03/13/21 at 02:00; Stop 03/13/21 at 03:59; Status DC Vancomycin HCl 2 gm/Sodium Chloride 500 ml @ 250 mls/hr Q12H IV Last administered on 03/13/21at 14:58; Start 03/13/21 at 14:00; Stop 03/13/21 at 16:36; Status DC Vancomycin HCl (Vancomycin Trough Level) 1 each 1X ONCE MC ; Start 03/14/21 at 13:30; Stop 03/13/21 at 16:38; Status DC Lactobacillus Rhamnosus (Culturelle) 1 cap BID PO Last administered on 03/15/21at 08:26; Start 03/13/21 at 21:00 Daptomycin 550 mg/ Sodium Chloride 50 ml @ 100 mls/hr Q24H IV Last administered on 03/14/21at 22:22; Start 03/13/21 at 17:00 Calcium Gluconate (Calcium Gluconate) 1,000 mg 1X ONCE IVP Last administered on 03/14/21at 12:19; Start 03/14/21 at 10:00; Stop 03/14/21 at 10:01; Status DC Dextrose (Dextrose 50%-Water Syringe) 25 gm 1X ONCE IV Last administered on 03/14/21at 12:19; Start 03/14/21 at 10:00; Stop 03/14/21 at 10:01; Status DC Insulin Human Regular (HumuLIN R VIAL) 10 unit 1X ONCE IV Last administered on 03/14/21at 13:31; Start 03/14/21 at 10:00; Stop 03/14/21 at 10:01; Status DC Insulin Human Lispro (HumaLOG) 15 units TIDWMEALS SQ Last administered on 03/15/21at 13:40; Start 03/14/21 at 17:00 Insulin Glargine (Lantus Syringe) 40 unit QHS SQ Last administered on 03/14/21at 21:49; Start 11/7/21 at 21:00 Sodium Polystyrene Sulfonate (Kayexalate) 15 gm 1X ONCE PO Last administered on 03/14/21at 13:20; Start 03/14/21 at 14:00; Stop 03/14/21 at 14:01; Status DC Active Scripts Active Reported Tramadol Hcl 50 Mg Tablet 50 Mg PO Q6HRS PRN Torsemide 20 Mg Tablet 1 Tab PO DAILY Zetia (Ezetimibe) 10 Mg Tablet 10 Mg PO DAILY Novolog Flexpen (Insulin Aspart) 100 Unit/1 Ml Insuln.pen 10 Unit SQ TIDAC Cymbalta (Duloxetine Hcl) 30 Mg Capsule.dr 30 Mg PO DAILY Spiriva Respimat (Tiotropium [place]) 4 Gm Mist.inhal 2.5 Mcg IH DAILY Levemir Flextouch (Insulin Detemir) 100 Unit/1 Ml Insuln.pen 30 Unit SQ HS Alprazolam 0.25 Mg Tablet 1 Tab PO TID PRN Amlodipine Besylate 5 Mg Tablet 5 Mg PO DAILY Lisinopril 5 Mg Tablet 1 Tab PO DAILY Spironolactone 25 Mg Tablet 25 Mg PO DAILY Furosemide 40 Mg Tablet 40 Mg PO DAILY Gabapentin 600 Mg Tablet 1 Tab PO TID Glimepiride 4 Mg Tablet 1 Tab PO BID Carvedilol 25 Mg Tablet 1 Tab PO BID Clopidogrel (Clopidogrel Bisulfate) 75 Mg Tablet 75 Mg PO DAILY Pravastatin Sodium 80 Mg Tablet 1 Tab PO DAILY Allergies Allergies: Coded Allergies: atorvastatin (Verified Allergy, Intermediate, 03/12/21) latex (Verified Allergy, Intermediate, 03/12/21) ROS Review of System CONSTITUTIONAL: No fever. No chills. No dizziness. No weakness. CARDIOVASCULAR: No chest pain. No palpitations. No lower extremity edema. RESPIRATORY: No shortness of breath, cough, pain with respiration. No hemoptysis. No dyspnea. GASTROINTESTINAL: Normal appetite. No nausea, vomiting, diarrhea. GENITOURINARY: No frequency, urgency, nocturia. No hematuria or dysuria. MUSCULOSKELETAL: Refer to HPI INTEGUMENTARY: Refer to HPI NEUROLOGIC: No numbness or tingling of the extremities. No weakness. PSYCHIATRIC: No confusion. ENDOCRINE: No fatigue. No weakness. HEMATOLOGICAL: No bleeding. No petechiae. No bruising. ALLERGIES: No asthma. No urticaria Physical Exam Physical Exam General: Pleasant without apparent distress, AOx3 Left lower extremity focused Dermatology: -H PK to the subsecond and third metatarsal head. Upon debridement, there is a partial-thickness wound without any exposed tendon, bone underneath. There is no active drainage, proximal streaking or fluctuance. Adequate bleeding was noted at the wound bed. Vascular: -DP/PT palpable -Foot is warm to touch with CFT less than 3 seconds x 5 -Minimal to no periwound erythema to the plantar forefoot -Severe circumferential nonpitting edema and erythema extending from the ankle level proximally to the knee without any open sores or drainage or fluctuance Neurology: -Light touch sensation diminished to the level of distal ankle MSK: -[-] TTP at the plantar forefoot - [+] TTP at calf upon squeeze -Able to move digits -Muscle strength 5 out of 5 across ankle joint -[+] Mild TTP to popliteal lymph nodes -S/p left second digit amputation Vitals VITALS Vital Signs Date Time Temp Pulse Resp B/P (MAP) Pulse Ox O2 Delivery O2 Flow Rate FiO2 03/15/21 15:42 96 Nasal Cannula 3.0 03/15/21 15:00 97.4 92 16 180/55 (96) 97.4 Labs Labs Laboratory Tests Test 03/13/21 17:35 03/13/21 19:20 03/13/21 20:26 03/14/21 05:45 Glucose (Fingerstick) 297 mg/dL (70-99) 322 mg/dL (70-99) Urine Collection Type Unknown Urine Color Yellow Urine Clarity Clear Urine pH 5.0 (<5.0-8.0) Urine Specific [place] 1.015 (1.000-1.030) Urine Protein Negative mg/dL (NEG-TRACE) Urine Glucose (UA) 250 mg/dL (NEG) Urine Ketones (Stick) Negative mg/dL (NEG) Urine Blood Negative (NEG) Urine Nitrite Negative (NEG) Urine Bilirubin Negative (NEG) Urine Urobilinogen Dipstick 1.0 mg/dL (0.2 mg/dL) Urine Leukocyte Esterase Small (NEG) Urine RBC 0 /HPF (0-2) Urine WBC 5-10 /HPF (0-4) Urine Squamous Epithelial Cells Mod /LPF Urine Bacteria 0 /HPF (0-FEW) Urine Mucus Slight /LPF Urine Yeast Present /HPF Sodium Level 134 mmol/L (136-145) Potassium Level 6.1 mmol/L (3.5-5.1) Chloride Level 100 mmol/L (98-107) Carbon Dioxide Level 30 mmol/L (21-32) Anion Gap 4 (6-14) Blood Urea Nitrogen 33 mg/dL (7-20) Creatinine 1.7 mg/dL (0.6-1.0) Estimated GFR (Cockcroft-Gault) 30.6 Glucose Level 263 mg/dL (70-99) Calcium Level 8.5 mg/dL (8.5-10.1) Test 03/14/21 08:03 03/14/21 10:39 03/14/21 17:09 03/14/21 18:54 Glucose (Fingerstick) 252 mg/dL (70-99) 333 mg/dL (70-99) 288 mg/dL (70-99) 304 mg/dL (70-99) Test 03/14/21 21:43 03/15/21 06:25 03/15/21 07:32 03/15/21 10:32 Glucose (Fingerstick) 252 mg/dL (70-99) 227 mg/dL (70-99) 182 mg/dL (70-99) White Blood Count 4.7 x10^3/uL (4.0-11.0) Red Blood Count 3.28 x10^6/uL (3.50-5.40) Hemoglobin 9.0 g/dL (12.0-15.5) Hematocrit 27.3 % (36.0-47.0) Mean Corpuscular Volume 83 fL (79-100) Mean Corpuscular Hemoglobin 27 pg (25-35) Mean Corpuscular Hemoglobin Concent 33 g/dL (31-37) Red Cell Distribution Width 13.7 % (11.5-14.5) Platelet Count 314 x10^3/uL (140-400) Neutrophils (%) (Auto) 60 % (31-73) Lymphocytes (%) (Auto) 22 % (24-48) Monocytes (%) (Auto) 11 % (0-9) Eosinophils (%) (Auto) 6 % (0-3) Basophils (%) (Auto) 1 % (0-3) Neutrophils # (Auto) 2.8 x10^3/uL (1.8-7.7) Lymphocytes # (Auto) 1.0 x10^3/uL (1.0-4.8) Monocytes # (Auto) 0.5 x10^3/uL (0.0-1.1) Eosinophils # (Auto) 0.3 x10^3/uL (0.0-0.7) Basophils # (Auto) 0.0 x10^3/uL (0.0-0.2) Erythrocyte Sedimentation Rate 92 (0-25) Sodium Level 136 mmol/L (136-145) Potassium Level 4.9 mmol/L (3.5-5.1) Chloride Level 100 mmol/L (98-107) Carbon Dioxide Level 30 mmol/L (21-32) Anion Gap 6 (6-14) Blood Urea Nitrogen 26 mg/dL (7-20) Creatinine 1.1 mg/dL (0.6-1.0) Estimated GFR (Cockcroft-Gault) 50.5 Glucose Level 222 mg/dL (70-99) Calcium Level 8.9 mg/dL (8.5-10.1) Laboratory Tests Test 03/14/21 17:09 03/14/21 18:54 03/14/21 21:43 03/15/21 06:25 Glucose (Fingerstick) 288 mg/dL (70-99) 304 mg/dL (70-99) 252 mg/dL (70-99) White Blood Count 4.7 x10^3/uL (4.0-11.0) Red Blood Count 3.28 x10^6/uL (3.50-5.40) Hemoglobin 9.0 g/dL (12.0-15.5) Hematocrit 27.3 % (36.0-47.0) Mean Corpuscular Volume 83 fL (79-100) Mean Corpuscular Hemoglobin 27 pg (25-35) Mean Corpuscular Hemoglobin Concent 33 g/dL (31-37) Red Cell Distribution Width 13.7 % (11.5-14.5) Platelet Count 314 x10^3/uL (140-400) Neutrophils (%) (Auto) 60 % (31-73) Lymphocytes (%) (Auto) 22 % (24-48) Monocytes (%) (Auto) 11 % (0-9) Eosinophils (%) (Auto) 6 % (0-3) Basophils (%) (Auto) 1 % (0-3) Neutrophils # (Auto) 2.8 x10^3/uL (1.8-7.7) Lymphocytes # (Auto) 1.0 x10^3/uL (1.0-4.8) Monocytes # (Auto) 0.5 x10^3/uL (0.0-1.1) Eosinophils # (Auto) 0.3 x10^3/uL (0.0-0.7) Basophils # (Auto) 0.0 x10^3/uL (0.0-0.2) Erythrocyte Sedimentation Rate 92 (0-25) Sodium Level 136 mmol/L (136-145) Potassium Level 4.9 mmol/L (3.5-5.1) Chloride Level 100 mmol/L (98-107) Carbon Dioxide Level 30 mmol/L (21-32) Anion Gap 6 (6-14) Blood Urea Nitrogen 26 mg/dL (7-20) Creatinine 1.1 mg/dL (0.6-1.0) Estimated GFR (Cockcroft-Gault) 50.5 Glucose Level 222 mg/dL (70-99) Calcium Level 8.9 mg/dL (8.5-10.1) Test 03/15/21 07:32 03/15/21 10:32 Glucose (Fingerstick) 227 mg/dL (70-99) 182 mg/dL (70-99) Assessment/Plan Assessment/Plan Left diabetic foot ulcer, cellulitis, PVD peripheral neuropathy and diabetes S/p left second toe amputation -Explained clinical findings. The H PK and a wounds were sharply debrided to the epidermis layer to the left plantar forefoot without any incidence or concerning clinical signs of deep tissue abscess or proximal streaking. -CT of the left foot was insignificant for soft tissue emphysema, foreign body, osteomyelitis or deep tissue abscess -Clinically, the left leg erythema and edema is likely from venous stasis, cellulitis and possible DVT. This may be separate from the foot ulcer -Patient is on Plavix and heparin -The foot wounds were dressed with Betadine wet-to-dry and tape, dressing change as above twice daily otherwise keep them clean and dry -IV antibiotics: Daptomycin and Zosyn, ID is following -WBC: Aleukocytosis -Activity: Minimal heel touchdown weightbearing in the surgical shoe for bathroom and PT -PT/OT: Eval and treat -Wound culture pending -Blood culture: No growth to date Dispo: No surgical intervention is anticipated on the left foot. Continue with IV antibiotic management per ID for left leg cellulitis. MRI of the left leg may be low yield. I will continue to follow while patient remains inpatient. PEDRO MILIAN DPM Mar 15, 2021 16:20
--- NOTE | 2021-03-15 17:09 | RAD ---
EXAMINATION: US LEFT LOWER EXTREMITY ARTERIAL DUPLEX EVAL INDICATION: 60 years, Female, left leg wound. COMPARISON: None TECHNIQUE: Grayscale, color and spectral Doppler evaluation of the LEFT lower extremity arterial syst em(s) was performed. FINDINGS: Limited exam due to patient's body habitus. LEFT PEAK SYSTOLIC VELOCITIES: COMMON FEMORAL ARTERY: 350 cm/s WAVEFORMS: Monophasic DEEP FEMORAL ARTERY: 131 cm/s WAVEFORMS: Monophasic PROXIMAL SUPERFICIAL FEMORAL ARTERY: 284 cm/s WAVEFORMS: Monophasic MID SUPERFICIAL FEMORAL ARTERY: 347 cm/s WAVEFORMS: Monophasic DISTAL SUPERFICIAL FEMORAL ARTERY: 190 cm/s WAVEFORMS: Monophasic POPLITEAL ARTERY: 153 cm/s WAVEFORMS: Monophasic DORSALIS PEDIS ARTERY: 39 cm/s WAVEFORMS: Monophasic PROXIMAL POSTERIOR TIBIAL ARTERY: 63 cm/s WAVEFORMS: Monophasic DISTAL POSTERIOR TIBIAL ARTERY: 90 cm/s WAVEFORMS: Monophasic ANTERIOR TIBIAL ARTERY: 67 cm/s WAVEFORMS: Monophasic PERONEAL ARTERY: Not visualized. Enlarged left groin lymph node with fatty hilum, measures up to 1.2 cm in short axis, likely reactive . IMPRESSION: 1. Diffuse monophasic waveforms throughout the left lower extremity arteries, compatible with diffuse atherosclerotic disease. 2. Elevated velocities of the left common and proximal/mid superficial femoral arteries, may reflect greater than 50 % hemodynamically significant stenosis. 3. Peroneal artery is not visualized, may be occluded. Electronically signed by: Tamy Wallace MD (03/15/2021 5:07 PM) [id number]
[2021-03-15] MEDS ORDERED: LIDO:MAALOX 1:1 20 ML SINGLE DOSE. PO PRN (18:15)
[2021-03-15] MEDS: ZOLPIDEM 5 MG TABLET. PO PRN (21:21)
[2021-03-15] MEDS: DAPTOmycin (GENERIC) IVPB 550 MG in IV NORMAL SALINE 50ML 50 ML IV SCH (21:21)
[2021-03-15] MEDS: LISINOPRIL 5 MG TABLET. PO SCH (21:23)
[2021-03-15] MEDS: INSULIN GLARGINE SYRINGE. SQ SCH (21:33)
[2021-03-16] MEDS: PIPERACILLIN/TAZOBACTAM 3.375 GM in IV NORMAL SALINE 50ML 50 ML IV SCH ×5 (00:12→23:50)
[2021-03-16 03:29] VITALS: BP 158/53
[2021-03-16 05:01] LABS: CALCIUM 8.6 mg/dL (8.5-10.1); GFR 56.4; POTASSIUM 4.8 mmol/L (3.5-5.1)
[2021-03-16] MEDS: HEPARIN for SUB-Q USE 5,000 UNIT/ML VIAL. SQ SCH ×3 (05:31→22:18)
[2021-03-16 07:00] VITALS: BP 187/64
[2021-03-16] MEDS: IPRATRPIUM/ALBUTEROL 0.5/2.5MG 3 ML NEBU. NEB SCH ×4 (07:26→20:18)
[2021-03-16] MEDS: LACTOBACILLUS RHAMNOSUS GG 1 CAPSULE. PO SCH ×2 (08:16→20:51)
[2021-03-16] MEDS: CARVEDILOL 12.5 MG TABLET. PO SCH ×2 (08:16→17:47)
[2021-03-16] MEDS: SENNOSIDES/DOCUSATE 8.6/50MG TABLET. PO SCH ×2 (08:17→20:51)
[2021-03-16] MEDS: CLOPIDOGREL BISULFATE 75 MG TABLET PO SCH (08:17)
[2021-03-16] MEDS: DULoxetine HCL 30 MG CAPSULE.DR PO SCH (08:17)
[2021-03-16] MEDS: LISINOPRIL 5 MG TABLET. PO SCH (08:18)
[2021-03-16] MEDS: EZETIMIBE 10 MG TABLET. PO SCH (08:18)
[2021-03-16] MEDS: GABAPENTIN 300 MG CAPSULE. PO SCH ×3 (08:18→20:52)
[2021-03-16] MEDS: TORSEMIDE 20 MG TABLET. PO SCH (08:20)
[2021-03-16] MEDS: oxyCODONE/APAP 5/325 1 TAB TABLET PO PRN ×2 (08:24→16:36)
[2021-03-16] MEDS: INSULIN LISPRO 300 UNITS/3 ML VIAL. SQ SCH ×3 (08:25→17:51)
--- NOTE | 2021-03-16 09:28 | PDOC ---
Infectious Disease Note Subjective: Subjective Patient feels tired Continues to have swelling and pain in the left lower extremity has loose bm x1 Vital Signs: Vital Signs Vital Signs Date Time Temp Pulse Resp B/P (MAP) Pulse Ox O2 Delivery O2 Flow Rate FiO2 03/16/21 08:24 Room Air 03/16/21 08:18 89 187/64 03/16/21 07:27 98 3.0 03/16/21 07:00 98.1 20 98.1 Physical Exam: PHYSICAL EXAM GEN: Well developed and well nourished female in nad sitting up in chair HEENT: Perrl and EOMI Normal cephalic, atraumatic, OM moist, anicteric NECK: Supple, no JVD LUNGS: Clear bilaterally HEART: RRR, ABDOMEN: Soft, nontender. Obese BS + EXTREMITIES: Prior amputation of left second metatarsal. Erythema on the left foot extending up the ankle. left plantar foot has 2 ulcers present. BLE 1-2 + edema + Chronic venous insuffiency NEUROLOGIC A&O x 3, no obvious focal deficits PSYCHIATRIC: Normal affect, normal mood. Stable SKIN: No rashes, Changes of CVI+ No Abarca, No CVA or SP tenderness Medications: Inpatient Meds: Medications reviewed. Labs: Lab Laboratory Tests Test 03/15/21 10:32 03/15/21 17:01 03/15/21 19:13 03/16/21 03:55 Glucose (Fingerstick) 182 mg/dL (70-99) 198 mg/dL (70-99) 289 mg/dL (70-99) Sodium Level 139 mmol/L (136-145) Potassium Level 4.8 mmol/L (3.5-5.1) Chloride Level 101 mmol/L (98-107) Carbon Dioxide Level 33 mmol/L (21-32) Anion Gap 5 (6-14) Blood Urea Nitrogen 22 mg/dL (7-20) Creatinine 1.0 mg/dL (0.6-1.0) Estimated GFR (Cockcroft-Gault) 56.4 Glucose Level 175 mg/dL (70-99) Calcium Level 8.6 mg/dL (8.5-10.1) Test 03/16/21 08:10 Glucose (Fingerstick) 235 mg/dL (70-99) Objective: Assessment: Lt plantar wounds, callus ,cellulitis , CT LLE No abscess or OM DM with neuropathy Renal insuffiency H/O Lt 2nd toe partial amputation HTN Chr venous insuffiency Anemia Plan: Plan of Care Pt can be transitioned to Doxy and augmentin for 10 days when ready for dc home If diarrhea continues check C. difficile PCR NO Need for MRI Foot Local wound care Off load Monitor labs and cultures D/W NOHEMI MEJIAS MD Mar 16, 2021 09:28
--- NOTE | 2021-03-16 10:23 | PDOC ---
Renal-Progress Notes Subjective Notes Notes NO NEW COMPLAINTS History of Present Illness Hx of present illness STABLE Vitals Vitals Vital Signs Date Time Temp Pulse Resp B/P (MAP) Pulse Ox O2 Delivery O2 Flow Rate FiO2 03/16/21 09:43 Room Air 03/16/21 08:18 89 187/64 03/16/21 07:27 98 3.0 03/16/21 07:00 98.1 20 98.1 Weight Weight [ ] I.O. Intake and Output Intake and Output 03/16/21 07:00 Intake Total 50 ml Output Total 1200 ml Balance -1150 ml IV Total 50 ml Output Urine Total 1200 ml # Voids 1 Labs Labs Laboratory Tests Test 03/15/21 10:32 03/15/21 17:01 03/15/21 19:13 03/16/21 03:55 Glucose (Fingerstick) 182 mg/dL (70-99) 198 mg/dL (70-99) 289 mg/dL (70-99) Sodium Level 139 mmol/L (136-145) Potassium Level 4.8 mmol/L (3.5-5.1) Chloride Level 101 mmol/L (98-107) Carbon Dioxide Level 33 mmol/L (21-32) Anion Gap 5 (6-14) Blood Urea Nitrogen 22 mg/dL (7-20) Creatinine 1.0 mg/dL (0.6-1.0) Estimated GFR (Cockcroft-Gault) 56.4 Glucose Level 175 mg/dL (70-99) Calcium Level 8.6 mg/dL (8.5-10.1) Test 03/16/21 08:10 Glucose (Fingerstick) 235 mg/dL (70-99) Micro Micro Microbiology 03/15/21 Gram Stain - Final, Resulted 03/15/21 Aerobic and Anaerobic Culture - Preliminary, Resulted 03/13/21 Urine Culture - Final, Complete 03/13/21 Blood Culture - Preliminary, Resulted NO GROWTH AFTER 3 DAYS Review of Systems Constitutional: yes: weakness, alert, oriented Ears/Nose/Throat: Yes: no symptom reported Eyes: Yes: no symptom reported Pulmonary: Yes no symptom reported Cardiovascular: Yes no symptom reported Gastrointestional: Yes: constipation Genitourinary: Yes: no symptom reported Musculoskeletal: Yes: foot pain Skin: Yes no symptom reported Psychiatric/Neurological: Yes: no symptom reported Endocrine: Yes: no symptom reported Physical Exam General Appearance: no apparent distress Skin: warm Respiratory: bilateral CTA Heart: S1S2 Abdomen: soft, bowel sounds present Genitourinary: bladder flat Extremities: pulses present Neurology: alert, oriented Musculoskeletal: Osteoarthritis Assessment Assessment IMP LYNNETTE RESOLVED CKD STAGE 3 WITH CR OF ABOUT 1.3 HYPERKALEMIA-RESOLVED DM WITH NEUROPAHTY LEFT FOOT WOUND HX OF HTN-LABILE PLAN [facility] RESUMED YESTERDAY INCREASE NORVASC CONT TORSEMIDE WILL FOLLOW KHALIDA ZHANG MD Mar 16, 2021 10:23
[2021-03-16 11:00] VITALS: BP 167/66
--- NOTE | 2021-03-16 11:21 | PDOC ---
[employer] PROGRESS NOTE Date of Service DOS: DATE: 03/16/21 TIME: 11:14 Chief Complaint Chief Complaint Diabetic foot ulcer with suspected acute osteomyelitis. Diabetes - a1c 11.4 COPD Hypertension Hyperkalemia LYNNETTE - vasomotor nephropathy -Patient presented to outside hospital from wound care appointment due to worsening foot ulcers. Concern for osteomyelitis -Transferred here -Start patient on Vanco Zosyn. Will consult infectious disease. -Blood cultures were apparently obtained at outside facility -Podiatry consult -DVT prophylaxis -Home meds resumed as indicated -Diet as tolerated 37 MIN PT exam, chart review, > 50% of time spent with exam, chart review, pt care coordination. 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 Patient is a known diabetic. Apparently when she was at her flat folding machine operator yesterday there was some concern for osteomyelitis of the second metatarsal. Patient does report she has been feeling unwell and weak for a little over a week now. Patient's been having some new onset worsening erythema of her left foot. Visit flat folding machine operator yesterday outlined the redness and attempt to go to emergency room but already expanded beyond that. 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 X-ray lower extremity concerning for osteomyelitis. When I evaluated patient she was complaining of some foot pain. 03/13 Late entry for 03 13. Patient evaluated and examined at bedside. Was complaining of some ongoing foot pain. Antibiotics started she is tolerating well. Consults to ID podiatry and nephrology. Plan of care discussed with bedside RN. 03/14 Patient evaluated and examined at bedside. Doing well resting in bed. Somewhat hyperkalemic today will try calcium insulin dextrose. For 1 dose. Will hold off until seen by nephrology in regards to trying Lasix for the hyperkalemia. Awaiting podiatry evaluation. Plan of care discussed bedside RN. 03/15: Creatinine improved to 1.1 K4.9 glucose in the 200s. WBC 4.7 sed rate 92 CRP 84[address] left foot with no notable findings. Arterial doppler with detected peroneal flow possibly greater than 50% stenosis below the knee. Vascular surgery consulted Feels the pain and swelling is improved able to feel her toes on her left foot a little more today. No nausea or vomiting. Awaiting vascular surgery input still requiring IV antibiotics. Vitals/I&O Vitals/I&O: Vital Signs Date Time Temp Pulse Resp B/P (MAP) Pulse Ox O2 Delivery O2 Flow Rate FiO2 03/16/21 10:30 89 187/64 03/16/21 09:43 Room Air 03/16/21 07:27 98 3.0 03/16/21 07:00 98.1 20 98.1 l I & O 03/15/21 03/15/21 03/16/21 15:00 23:00 07:00 Intake Total 50 ml Output Total 500 ml 700 ml Balance 50 ml -500 ml -700 ml Physical Exam Physical Exam: GEN: Well developed and well nourished female in nad sitting up in chair HEENT: Perrl and EOMI Normal cephalic, atraumatic, OM moist, anicteric NECK: Supple, no JVD LUNGS: Clear bilaterally HEART: RRR, ABDOMEN: Soft, nontender. Obese BS + EXTREMITIES: Prior amputation of left second metatarsal. Erythema on the left foot extending up the ankle. left plantar foot has 2 ulcers present. BLE 1-2 + edema + Chronic venous insuffiency NEUROLOGIC A&O x 3, no obvious focal deficits PSYCHIATRIC: Normal affect, normal mood. Stable SKIN: No rashes, Changes of CVI+ No Abarca, No CVA or SP tenderness General: Alert, Oriented X3, Cooperative Heart: Regular rate, Normal S1, Normal S2 Lungs: Clear Abdomen: Other (obese) Extremities: Other (previous toe amputation left) Skin: Other (Some erythema on left foot and ankle) Labs Labs: Laboratory Tests Test 03/15/21 17:01 03/15/21 19:13 03/16/21 03:55 03/16/21 08:10 Glucose (Fingerstick) 198 mg/dL (70-99) 289 mg/dL (70-99) 235 mg/dL (70-99) Sodium Level 139 mmol/L (136-145) Potassium Level 4.8 mmol/L (3.5-5.1) Chloride Level 101 mmol/L (98-107) Carbon Dioxide Level 33 mmol/L (21-32) Anion Gap 5 (6-14) Blood Urea Nitrogen 22 mg/dL (7-20) Creatinine 1.0 mg/dL (0.6-1.0) Estimated GFR (Cockcroft-Gault) 56.4 Glucose Level 175 mg/dL (70-99) Calcium Level 8.6 mg/dL (8.5-10.1) Comment Review of Relevant I have reviewed the following items zuleyka (where applicable) has been applied. Medications: Current Medications Medications (Trade) Dose Ordered Sig/Yovanny Route PRN Reason Start Time Stop Time Status Last Admin Dose Admin Multi-Ingredient Mouthwash/Gargle (Gi Cocktail) 20 ml PRN QID PRN PO CHEST PAIN 03/15/21 18:15 03/15/21 18:22 Lisinopril (Prinivil) 5 mg DAILY PO 03/15/21 21:00 03/16/21 08:18 Justifications for Admission Other Justification GRIS HORN MD Mar 16, 2021 11:20
--- NOTE | 2021-03-16 12:04 | PDOC2 ---
CONSULT Date of Service Date of Service DATE: 03/16/21 TIME: 11:47 Reason for Consult Reason for Consult: Left foot wounds, cellulitis Referring Physician Referring Physician: Dr. Jordan Identification/Chief Complaint Chief Complaint LLE diabetic foot wounds Source Source: Patient History of Present Illness Reason for Visit: Ms. Abdul is a 60-year-old female with diabetes, obesity and peripheral vascular disease who has previously undergone multiple stents in her lower extremities. She believes this was done several years ago at [facility]. She now has a nonhealing wound to the plantar aspect of her left foot near the site of a second prior toe amputation. She is unsure how long this has been in place as she does not check her feet daily. She says that her sister and her daughter check her feet approximately once per week. She denies pain in her feet and has limited sensation in them related to neuropathy. Her ambulation is limited secondary to her body habitus and shortness of air. Past Medical History Cardiovascular: CAD, HTN, Hyperlipidemia Pulmonary: COPD CENTRAL NERVOUS SYSTEM: Periperal neuropathy GI: Constipation, Other Heme/Onc: No pertinent hx Hepatobiliary: No pertinent hx Psych: No pertinent hx Musculoskeletal: Osteoarthritis Infectious disease: No pertinent hx Renal/: No pertinent hx Endocrine: Diabetes Past Surgical History Past Surgical History: Cholecystectomy, Hernia Repair, Other (coronary and peripheral stent placement) Family History Family History: Coronary Artery Disease Social History No ALCOHOL: none Drugs: None Lives: with Family Domestic Violence: Neg Current Medications Current Medications Current Medications Ondansetron HCl (Zofran) 4 mg PRN Q6HRS PRN IVP NAUSEA/VOMITING 1ST CHOICE; Start 03/13/21 at 00:00 Calcium Carbonate/ Glycine (Tums) 500 mg PRN Q3HRS PRN PO UPSET STOMACH; Start 03/13/21 at 00:00 Zolpidem Tartrate (Ambien) 5 mg PRN QHS PRN PO INSOMNIA, MAY REPEAT IN 1HR Last administered on 03/15/21at 21:21; Start 03/13/21 at 00:00 Info (Non-Icu Electrolyte Protocol) 1 ea PRN DAILY PRN MC SEE COMMENTS; Start 03/13/21 at 00:00 Oxycodone HCl (Roxicodone) 5 mg PRN Q3HRS PRN PO BREAKTHROUGH PAIN Last administered on 03/15/21at 08:28; Start 03/13/21 at 00:00 Oxycodone/ Acetaminophen (Percocet 5/325) 1 tab PRN Q4HRS PRN PO MODERATE PAIN; Start 03/13/21 at 00:00 Oxycodone/ Acetaminophen (Percocet 5/325) 2 tab PRN Q4HRS PRN PO SEVERE PAIN Last administered on 03/16/21at 08:24; Start 03/13/21 at 00:00 Acetaminophen (Tylenol) 650 mg PRN Q6HRS PRN PO Headaches, Temp > 101.5F; Start 03/13/21 at 00:00 Senna/Docusate Sodium (Senna Plus) 1 tab BID PO Last administered on 03/16/21 08:17; Start 03/13/21 at 09:00 Heparin Sodium (Porcine) (Heparin Sodium) 5,000 unit Q8HRS SQ Last administered on 03/16/21 05:31; Start 03/13/21 at 06:00 Alprazolam (Xanax) 0.25 mg PRN TID PRN PO ANXIETY / AGITATION; Start 03/13/21 at 00:00 Amlodipine Besylate (Norvasc) 5 mg DAILY PO Last administered on 03/16/21 08:18; Start 03/13/21 at 09:00; Stop 03/16/21 at 10:24; Status DC Clopidogrel Bisulfate (Plavix) 75 mg DAILY PO Last administered on 03/16/21 08:17; Start 03/13/21 at 09:00 Duloxetine HCl (Cymbalta) 30 mg DAILY PO Last administered on 03/16/21at 08:17; Start 03/13/21 at 09:00 EZETIMIBE (Zetia) 10 mg DAILY PO Last administered on 03/16/21at 08:18; Start 03/13/21 at 09:00 Lisinopril (Prinivil) 5 mg DAILY PO Last administered on 03/13/21at 08:35; Start 03/13/21 at 09:00; Stop 03/14/21 at 13:00; Status DC Spironolactone (Aldactone) 25 mg DAILY PO Last administered on 03/13/21at 08:38; Start 03/13/21 at 09:00; Stop 03/13/21 at 15:18; Status DC Torsemide (Demadex) 20 mg DAILY PO Last administered on 03/16/21at 08:20; Start 03/13/21 at 09:00 Tramadol HCl (Ultram) 50 mg PRN Q6HRS PRN PO MILD PAIN 1-3; Start 03/13/21 at 00:00 Carvedilol (Coreg) 25 mg BIDWMEALS PO Last administered on 03/16/21at 08:16; Start 03/13/21 at 08:00 Gabapentin (Neurontin) 600 mg TID PO Last administered on 03/16/21at 08:18; Start 03/13/21 at 09:00 Insulin Human Lispro (HumaLOG) 10 units TIDWMEALS SQ Last administered on 03/14/21at 08:56; Start 03/13/21 at 08:00; Stop 03/14/21 at 13:10; Status DC Insulin Glargine (Lantus Syringe) 30 unit QHS SQ Last administered on 03/13/21at 21:30; Start 03/13/21 at 21:00; Stop 03/14/21 at 13:11; Status DC Non-Formulary Medication (Pravastatin Sodium ) 1 tab DAILY PO ; Start 03/13/21 at 09:00; Stop 03/15/21 at 18:10; Status DC Non-Formulary Medication (Tiotropium Sheridan (Spiriva Respimat)) 2.5 mcg DAILY IH ; Start 03/13/21 at 09:00; Status UNV Vancomycin HCl (Vanco Per Pharmacy) 1 each PRN DAILY PRN MC SEE COMMENTS Last administered on 03/13/21at 04:11; Start 03/13/21 at 00:15; Stop 03/13/21 at 16:38; Status DC Piperacillin Sod/ Tazobactam Sod (Zosyn Per Pharmacy) 1 each PRN DAILY PRN MC SEE COMMENTS; Start 03/13/21 at 00:15 Albuterol/ Ipratropium (Duoneb) 3 ml RTQID NEB Last administered on 03/16/21at 0 7:26; Start 03/13/21 at 08:00 Piperacillin Sod/ Tazobactam Sod 3.375 gm/Sodium Chloride 50 ml @ 100 mls/hr Q6HRS IV Last administered on 03/16/21at 05:25; Start 03/13/21 at 01:00 Vancomycin HCl 2 gm/Sodium Chloride 500 ml @ 250 mls/hr 1X ONCE IV Last a dministered on 03/13/21at 02:00; Start 03/13/21 at 02:00; Stop 03/13/21 at 03:59; Status DC Vancomycin HCl 2 gm/Sodium Chloride 500 ml @ 250 mls/hr Q12H IV Last administered on 03/13/21at 14:58; Start 03/13/21 at 14:00; Stop 03/13/21 at 16:36; Status DC Vancomycin HCl (Vancomycin Trough Level) 1 each 1X ONCE MC ; Start 03/14/21 at 13:30; Stop 03/13/21 at 16:38; Status DC Lactobacillus Rhamnosus (Culturelle) 1 cap BID PO Last administered on 03/16/21at 08:16; Start 03/13/21 at 21:00 Daptomycin 550 mg/ Sodium Chloride 50 ml @ 100 mls/hr Q24H IV Last administered on 03/15/21at 21:21; Start 03/13/21 at 17:00 Calcium Gluconate (Calcium Gluconate) 1,000 mg 1X ONCE IVP Last administered on 03/14/21at 12:19; Start 03/14/21 at 10:00; Stop 03/14/21 at 10:01; Status DC Dextrose (Dextrose 50%-Water Syringe) 25 gm 1X ONCE IV Last administered on 03/14/21at 12:19; Start 03/14/21 at 10:00; Stop 03/14/21 at 10:01; Status DC Insulin Human Regular (HumuLIN R VIAL) 10 unit 1X ONCE IV Last administered on 03/14/21at 13:31; Start 03/14/21 at 10:00; Stop 03/14/21 at 10:01; Status DC Insulin Human Lispro (HumaLOG) 15 units TIDWMEALS SQ Last administered on 03/16/21at 08:25; Start 03/14/21 at 17:00 Insulin Glargine (Lantus Syringe) 40 unit QHS SQ Last administered on 03/15/21at 21:33; Start 03/14/21 at 21:00 Sodium Polystyrene Sulfonate (Kayexalate) 15 gm 1X ONCE PO Last administered on 03/14/21at 13:20; Start 03/14/21 at 14:00; Stop 03/14/21 at 14:01; Status DC Multi-Ingredient Mouthwash/Gargle (Gi Cocktail) 20 ml PRN QID PRN PO CHEST PAIN Last administered on 03/15/21at 18:22; Start 03/15/21 at 18:15 Lisinopril (Prinivil) 5 mg DAILY PO Last administered on 03/16/21at 08:18; Start 03/15/21 at 21:00 Amlodipine Besylate (Norvasc) 10 mg DAILY PO ; Start 03/16/21 at 10:30 Active Scripts Active Reported Tramadol Hcl 50 Mg Tablet 50 Mg PO Q6HRS PRN Torsemide 20 Mg Tablet 1 Tab PO DAILY Zetia (Ezetimibe) 10 Mg Tablet 10 Mg PO DAILY Novolog Flexpen (Insulin Aspart) 100 Unit/1 Ml Insuln.pen 10 Unit SQ TIDAC Cymbalta (Duloxetine Hcl) 30 Mg Capsule.dr 30 Mg PO DAILY Spiriva Respimat (Tiotropium Sheridan) 4 Gm Mist.inhal 2.5 Mcg IH DAILY Levemir Flextouch (Insulin Detemir) 100 Unit/1 Ml Insuln.pen 30 Unit SQ HS Alprazolam 0.25 Mg Tablet 1 Tab PO TID PRN Amlodipine Besylate 5 Mg Tablet 5 Mg PO DAILY Lisinopril 5 Mg Tablet 1 Tab PO DAILY Spironolactone 25 Mg Tablet 25 Mg PO DAILY Furosemide 40 Mg Tablet 40 Mg PO DAILY Gabapentin 600 Mg Tablet 1 Tab PO TID Glimepiride 4 Mg Tablet 1 Tab PO BID Carvedilol 25 Mg Tablet 1 Tab PO BID Clopidogrel (Clopidogrel Bisulfate) 75 Mg Tablet 75 Mg PO DAILY Pravastatin Sodium 80 Mg Tablet 1 Tab PO DAILY Allergies Allergies: Coded Allergies: atorvastatin (Verified Allergy, Intermediate, 03/12/21) latex (Verified Allergy, Intermediate, 03/12/21) Physical Exam General: Alert, Oriented X3, No acute distress Lungs: Normal air movement Heart: Regular rate, Other (nonpalpable L femoral, DP/PT, palpable right DP) Abdomen: Soft, No tenderness, Other (obese) Extremities: Other (LLE with cellulitis from left knee down, left 2nd toe amputation with superficial wound on plantar aspect of foot, minimal surrounding erythema and no drainage) Vitals VITALS Vital Signs Date Time Temp Pulse Resp B/P (MAP) Pulse Ox O2 Delivery O2 Flow Rate FiO2 03/16/21 10:30 89 187/64 03/16/21 09:43 Room Air 03/16/21 07:27 98 3.0 03/16/21 07:00 98.1 20 98.1 Labs Labs Laboratory Tests Test 03/14/21 17:09 03/14/21 18:54 03/14/21 21:43 03/15/21 06:25 Glucose (Fingerstick) 288 mg/dL (70-99) 304 mg/dL (70-99) 252 mg/dL (70-99) White Blood Count 4.7 x10^3/uL (4.0-11.0) Red Blood Count 3.28 x10^6/uL (3.50-5.40) Hemoglobin 9.0 g/dL (12.0-15.5) Hematocrit 27.3 % (36.0-47.0) Mean Corpuscular Volume 83 fL (79-100) Mean Corpuscular Hemoglobin 27 pg (25-35) Mean Corpuscular Hemoglobin Concent 33 g/dL (31-37) Red Cell Distribution Width 13.7 % (11.5-14.5) Platelet Count 314 x10^3/uL (140-400) Neutrophils (%) (Auto) 60 % (31-73) Lymphocytes (%) (Auto) 22 % (24-48) Monocytes (%) (Auto) 11 % (0-9) Eosinophils (%) (Auto) 6 % (0-3) Basophils (%) (Auto) 1 % (0-3) Neutrophils # (Auto) 2.8 x10^3/uL (1.8-7.7) Lymphocytes # (Auto) 1.0 x10^3/uL (1.0-4.8) Monocytes # (Auto) 0.5 x10^3/uL (0.0-1.1) Eosinophils # (Auto) 0.3 x10^3/uL (0.0-0.7) Basophils # (Auto) 0.0 x10^3/uL (0.0-0.2) Erythrocyte Sedimentation Rate 92 (0-25) Sodium Level 136 mmol/L (136-145) Potassium Level 4.9 mmol/L (3.5-5.1) Chloride Level 100 mmol/L (98-107) Carbon Dioxide Level 30 mmol/L (21-32) Anion Gap 6 (6-14) Blood Urea Nitrogen 26 mg/dL (7-20) Creatinine 1.1 mg/dL (0.6-1.0) Estimated GFR (Cockcroft-Gault) 50.5 Glucose Level 222 mg/dL (70-99) Calcium Level 8.9 mg/dL (8.5-10.1) Test 03/15/21 07:32 03/15/21 10:32 03/15/21 17:01 03/15/21 19:13 Glucose (Fingerstick) 227 mg/dL (70-99) 182 mg/dL (70-99) 198 mg/dL (70-99) 289 mg/dL (70-99) Test 03/16/21 03:55 03/16/21 08:10 Sodium Level 139 mmol/L (136-145) Potassium Level 4.8 mmol/L (3.5-5.1) Chloride Level 101 mmol/L (98-107) Carbon Dioxide Level 33 mmol/L (21-32) Anion Gap 5 (6-14) Blood Urea Nitrogen 22 mg/dL (7-20) Creatinine 1.0 mg/dL (0.6-1.0) Estimated GFR (Cockcroft-Gault) 56.4 Glucose Level 175 mg/dL (70-99) Calcium Level 8.6 mg/dL (8.5-10.1) Glucose (Fingerstick) 235 mg/dL (70-99) Laboratory Tests Test 03/15/21 17:01 03/15/21 19:13 03/16/21 03:55 03/16/21 08:10 Glucose (Fingerstick) 198 mg/dL (70-99) 289 mg/dL (70-99) 235 mg/dL (70-99) Sodium Level 139 mmol/L (136-145) Potassium Level 4.8 mmol/L (3.5-5.1) Chloride Level 101 mmol/L (98-107) Carbon Dioxide Level 33 mmol/L (21-32) Anion Gap 5 (6-14) Blood Urea Nitrogen 22 mg/dL (7-20) Creatinine 1.0 mg/dL (0.6-1.0) Estimated GFR (Cockcroft-Gault) 56.4 Glucose Level 175 mg/dL (70-99) Calcium Level 8.6 mg/dL (8.5-10.1) Images Images LLE duplex with monophasic flow in the common femoral and elevated velocities in SFA Assessment/Plan Assessment/Plan Ms. Abdul is a 60 year old female with CAD, DM, PVD, prior L 2nd toe amputation with wound to plantar aspect of left foot -Recommend CTA abd/pel with runoff, monophasic flow in the left common femoral artery indicative of more proximal stenosis/occlusion. Continue home plavix. -Recommend local wound care and continuation of IV antibiotics for LLE cellulitis DO CAMMIE Chacon KARA M DO Mar 16, 2021 12:04
--- NOTE | 2021-03-16 13:47 | NUR ---
Attempt x 1 made for 20g IV unsuccessful.
[2021-03-16] MEDS ORDERED: IOHEXOL 350 MG/ML 100 ML VIAL. IV ONE (14:45)
[2021-03-16] MEDS ORDERED: CONTRAST GIVEN. MC PRN (14:45)
[2021-03-16 15:00] VITALS: BP 191/82
[2021-03-16 19:25] VITALS: BP 206/88
[2021-03-16] MEDS: DAPTOmycin (GENERIC) IVPB 550 MG in IV NORMAL SALINE 50ML 50 ML IV SCH (20:55)
[2021-03-16] MEDS: ZOLPIDEM 5 MG TABLET. PO PRN (20:58)
[2021-03-16] MEDS: INSULIN GLARGINE SYRINGE. SQ SCH (21:04)
[2021-03-16 23:53] VITALS: BP 105/65
[2021-03-17] MEDS: oxyCODONE/APAP 5/325 1 TAB TABLET PO PRN ×3 (00:46→20:55)
[2021-03-17 03:00] VITALS: BP 186/89
[2021-03-17 06:03] LABS: CALCIUM 9.1 mg/dL (8.5-10.1); GFR 56.4; POTASSIUM 4.4 mmol/L (3.5-5.1)
[2021-03-17] MEDS: PIPERACILLIN/TAZOBACTAM 3.375 GM in IV NORMAL SALINE 50ML 50 ML IV SCH ×3 (06:14→16:55)
[2021-03-17] MEDS: HEPARIN for SUB-Q USE 5,000 UNIT/ML VIAL. SQ SCH ×3 (06:20→22:25)
[2021-03-17 07:00] VITALS: BP 199/73
[2021-03-17] MEDS: IPRATRPIUM/ALBUTEROL 0.5/2.5MG 3 ML NEBU. NEB SCH ×4 (07:14→20:00)
[2021-03-17] MEDS: LISINOPRIL 5 MG TABLET. PO SCH (08:40)
[2021-03-17] MEDS: SENNOSIDES/DOCUSATE 8.6/50MG TABLET. PO SCH ×2 (08:41→20:54)
[2021-03-17] MEDS: TORSEMIDE 20 MG TABLET. PO SCH (08:41)
[2021-03-17] MEDS: EZETIMIBE 10 MG TABLET. PO SCH (08:41)
[2021-03-17] MEDS: GABAPENTIN 300 MG CAPSULE. PO SCH ×3 (08:41→20:55)
[2021-03-17] MEDS: LACTOBACILLUS RHAMNOSUS GG 1 CAPSULE. PO SCH ×2 (08:41→20:54)
[2021-03-17] MEDS: CARVEDILOL 12.5 MG TABLET. PO SCH ×2 (08:42→16:54)
[2021-03-17] MEDS: CLOPIDOGREL BISULFATE 75 MG TABLET PO SCH (08:43)
[2021-03-17] MEDS: DULoxetine HCL 30 MG CAPSULE.DR PO SCH (08:44)
[2021-03-17] MEDS: INSULIN LISPRO 300 UNITS/3 ML VIAL. SQ SCH ×3 (08:49→17:00)
--- NOTE | 2021-03-17 09:16 | PDOC ---
PROGRESS NOTES Date of Service DATE: 03/17/21 TIME: 09:05 Subjective Subjective Patient continues to be on 3L NC CTA performed yeterday Anxious to discharge from hospital Objective Objective Vital Signs Date Time Temp Pulse Resp B/P (MAP) Pulse Ox O2 Delivery O2 Flow Rate FiO2 03/17/21 08:48 Room Air 03/17/21 08:42 100 186/89 03/17/21 07:14 96 5.0 03/17/21 07:00 97.8 18 97.8 Intake and Output 03/17/21 07:00 Intake Total 1140 ml Output Total 400 ml Balance 740 ml Intake Oral 1140 ml Output Urine Total 400 ml # Voids 4 Physical Exam Abdomen: Other (morbidly obese with large pannus) Heart: Regular rate, Other (Nonpapable femoral or popliteal pulses possible related to body habitus. nonpalpable pedal pulses. palpable left radial pulse and brachial pulse.) Extremities: Other (She has significant cellultis to left lower extremtity just above the ankle. There are two small superficial wounds on the plantar aspect of he left foot.) General: Alert, Oriented X3, No acute distress HEENT: Atraumatic, EOMI Lungs: Other (No wheezing, but labored breathign with activity.) Neck: Other (Decreased thyromental distance and decreased cervical range of motion. ) Neuro: Normal speech, Other (Slow gait but able to ambulate without assistance) Skin: Other (groins free of rash or cellulitis) Assessment Assessment 1. Super morbid obesity, BMI 60 2. Peripheral arterial disease s/p bilateral SFA stents 3. COPD chronic on oxygen 4. Obstructive sleep apnea Will proceed with lle angiogram via right femoral access with anesthesia assistance. Patient able to lie flat during examination today. Appreciate efforts of hospitalist service to optimize her respiratory status prior to procedure as may be prolonged time lying flat to treat her peripheral arterial disease depending on angiogram findings. CTA performed yesterday was nondiag nostic. Discussed with patient that she is at high risk of angiography given body habitus and chronic respiratory failure and at elevated risk of cardiopulmonary and bleeding complications. Discussed that she is at high risk of amputation of the left lower extremity if the arterial disease is not addressed. Patient understands and agrees to proceed understanding risks of bleeding, limb loss, and failure of intervention Comment Review of Relevant I have reviewed the following items zuleyka (where applicable) has been applied. Labs Laboratory Tests Test 03/15/21 10:32 03/15/21 17:01 03/15/21 19:13 03/16/21 03:55 Glucose (Fingerstick) 182 mg/dL (70-99) 198 mg/dL (70-99) 289 mg/dL (70-99) Sodium Level 139 mmol/L (136-145) Potassium Level 4.8 mmol/L (3.5-5.1) Chloride Level 101 mmol/L (98-107) Carbon Dioxide Level 33 mmol/L (21-32) Anion Gap 5 (6-14) Blood Urea Nitrogen 22 mg/dL (7-20) Creatinine 1.0 mg/dL (0.6-1.0) Estimated GFR (Cockcroft-Gault) 56.4 Glucose Level 175 mg/dL (70-99) Calcium Level 8.6 mg/dL (8.5-10.1) Test 03/16/21 08:10 03/16/21 12:00 03/16/21 17:03 03/16/21 19:23 Glucose (Fingerstick) 235 mg/dL (70-99) 140 mg/dL (70-99) 239 mg/dL (70-99) 218 mg/dL (70-99) Test 03/17/21 04:10 03/17/21 07:28 Sodium Level 138 mmol/L (136-145) Potassium Level 4.4 mmol/L (3.5-5.1) Chloride Level 102 mmol/L (98-107) Carbon Dioxide Level 32 mmol/L (21-32) Anion Gap 4 (6-14) Blood Urea Nitrogen 14 mg/dL (7-20) Creatinine 1.0 mg/dL (0.6-1.0) Estimated GFR (Cockcroft-Gault) 56.4 Glucose Level 137 mg/dL (70-99) Calcium Level 9.1 mg/dL (8.5-10.1) Glucose (Fingerstick) 166 mg/dL (70-99) Laboratory Tests Test 03/16/21 12:00 03/16/21 17:03 03/16/21 19:23 03/17/21 04:10 Glucose (Fingerstick) 140 mg/dL (70-99) 239 mg/dL (70-99) 218 mg/dL (70-99) Sodium Level 138 mmol/L (136-145) Potassium Level 4.4 mmol/L (3.5-5.1) Chloride Level 102 mmol/L (98-107) Carbon Dioxide Level 32 mmol/L (21-32) Anion Gap 4 (6-14) Blood Urea Nitrogen 14 mg/dL (7-20) Creatinine 1.0 mg/dL (0.6-1.0) Estimated GFR (Cockcroft-Gault) 56.4 Glucose Level 137 mg/dL (70-99) Calcium Level 9.1 mg/dL (8.5-10.1) Test 03/17/21 07:28 Glucose (Fingerstick) 166 mg/dL (70-99) Microbiology 03/15/21 Gram Stain - Final, Resulted 03/15/21 Aerobic and Anaerobic Culture - Preliminary, Resulted 03/13/21 Urine Culture - Final, Complete 03/13/21 Blood Culture - Preliminary, Resulted NO GROWTH AFTER 4 DAYS Medications Current Medications Ondansetron HCl (Zofran) 4 mg PRN Q6HRS PRN IVP NAUSEA/VOMITING 1ST CHOICE; Start 03/13/21 at 00:00 Calcium Carbonate/ Glycine (Tums) 500 mg PRN Q3HRS PRN PO UPSET STOMACH; Start 03/13/21 at 00:00 Zolpidem Tartrate (Ambien) 5 mg PRN QHS PRN PO INSOMNIA, MAY REPEAT IN 1HR Last administered on 03/16/21at 20:58; Start 03/13/21 at 00:00 Info (Non-Icu Electrolyte Protocol) 1 ea PRN DAILY PRN MC SEE COMMENTS; Start 03/13/21 at 00:00 Oxycodone HCl (Roxicodone) 5 mg PRN Q3HRS PRN PO BREAKTHROUGH PAIN Last administered on 03/15/21at 08:28; Start 03/13/21 at 00:00 Oxycodone/ Acetaminophen (Percocet 5/325) 1 tab PRN Q4HRS PRN PO MODERATE PAIN; Start 03/13/21 at 00:00 Oxycodone/ Acetaminophen (Percocet 5/325) 2 tab PRN Q4HRS PRN PO SEVERE PAIN Last administered on 03/17/21at 08:48; Start 03/13/21 at 00:00 Acetaminophen (Tylenol) 650 mg PRN Q6HRS PRN PO Headaches, Temp > 101.5F; Start 03/13/21 at 00:00 Senna/Docusate Sodium (Senna Plus) 1 tab BID PO Last administered on 03/17/21 08:41; Start 03/13/21 at 09:00 Heparin Sodium (Porcine) (Heparin Sodium) 5,000 unit Q8HRS SQ Last administered on 03/17/21 06:20; Start 03/13/21 at 06:00 Alprazolam (Xanax) 0.25 mg PRN TID PRN PO ANXIETY / AGITATION; Start 03/13/21 at 00:00 Amlodipine Besylate (Norvasc) 5 mg DAILY PO Last administered on 03/16/21 08:18; Start 03/13/21 at 09:00; Stop 03/16/21 at 10:24; Status DC Clopidogrel Bisulfate (Plavix) 75 mg DAILY PO Last administered on 03/17/21 08:43; Start 03/13/21 at 09:00 Duloxetine HCl (Cymbalta) 30 mg DAILY PO Last administered on 03/17/21 08:44; Start 03/13/21 at 09:00 EZETIMIBE (Zetia) 10 mg DAILY PO Last administered on 03/17/21 08:41; Start 03/13/21 at 09:00 Lisinopril (Prinivil) 5 mg DAILY PO Last administered on 03/13/21at 08:35; Start 03/13/21 at 09:00; Stop 03/14/21 at 13:00; Status DC Spironolactone (Aldactone) 25 mg DAILY PO Last administered on 03/13/21at 08:38; Start 03/13/21 at 09:00; Stop 03/13/21 at 15:18; Status DC Torsemide (Demadex) 20 mg DAILY PO Last administered on 03/17/21 08:41; Start 03/13/21 at 09:00 Tramadol HCl (Ultram) 50 mg PRN Q6HRS PRN PO MILD PAIN 1-3; Start 03/13/21 at 00:00 Carvedilol (Coreg) 25 mg BIDWMEALS PO Last administered on 03/17/21at 08:42; Start 03/13/21 at 08:00 Gabapentin (Neurontin) 600 mg TID PO Last administered on 03/17/21at 08:41; Start 03/13/21 at 09:00 Insulin Human Lispro (HumaLOG) 10 units TIDWMEALS SQ Last administered on 03/14/21at 08:56; Start 03/13/21 at 08:00; Stop 03/14/21 at 13:10; Status DC Insulin Glargine (Lantus Syringe) 30 unit QHS SQ Last administered on 03/13/21at 21:30; Start 03/13/21 at 21:00; Stop 03/14/21 at 13:11; Status DC Non-Formulary Medication (Pravastatin Sodium ) 1 tab DAILY PO ; Start 03/13/21 at 09:00; Stop 03/15/21 at 18:10; Status DC Non-Formulary Medication (Tiotropium [place] (Spiriva Respimat)) 2.5 mcg DAILY IH ; Start 03/13/21 at 09:00; Status UNV Vancomycin HCl (Vanco Per Pharmacy) 1 each PRN DAILY PRN MC SEE COMMENTS Last administered on 03/13/21at 04:11; Start 03/13/21 at 00:15; Stop 03/13/21 at 16:38; Status DC Piperacillin Sod/ Tazobactam Sod (Zosyn Per Pharmacy) 1 each PRN DAILY PRN MC SEE COMMENTS; Start 03/13/21 at 00:15 Albuterol/ Ipratropium (Duoneb) 3 ml RTQID NEB Last administered on 03/17/21at 07:14; Start 03/13/21 at 08:00 Piperacillin Sod/ Tazobactam Sod 3.375 gm/Sodium Chloride 50 ml @ 100 mls/hr Q6HRS IV Last administered on 03/17/21at 06:14; Start 03/13/21 at 01:00 Vancomycin HCl 2 gm/Sodium Chloride 500 ml @ 250 mls/hr 1X ONCE IV Last administered on 03/13/21at 02:00; Start 03/13/21 at 02:00; Stop 03/13/21 at 03:59; Status DC Vancomycin HCl 2 gm/Sodium Chloride 500 ml @ 250 mls/hr Q12H IV Last administered on 03/13/21at 14:58; Start 03/13/21 at 14:00; Stop 03/13/21 at 16:36; Status DC Vancomycin HCl (Vancomycin Trough Level) 1 each 1X ONCE MC ; Start 03/14/21 at 13:30; Stop 03/13/21 at 16:38; Status DC Lactobacillus Rhamnosus (Culturelle) 1 cap BID PO Last administered on 03/17/21at 08:41; Start 03/13/21 at 21:00 Daptomycin 550 mg/ Sodium Chloride 50 ml @ 100 mls/hr Q24H IV Last administered on 03/16/21at 20:55; Start 03/13/21 at 17:00 Calcium Gluconate (Calcium Gluconate) 1,000 mg 1X ONCE IVP Last administered on 03/14/21at 12:19; Start 03/14/21 at 10:00; Stop 03/14/21 at 10:01; Status DC Dextrose (Dextrose 50%-Water Syringe) 25 gm 1X ONCE IV Last administered on 03/14/21at 12:19; Start 03/14/21 at 10:00; Stop 03/14/21 at 10:01; Status DC Insulin Human Regular (HumuLIN R VIAL) 10 unit 1X ONCE IV Last administered on 03/14/21at 13:31; Start 03/14/21 at 10:00; Stop 03/14/21 at 10:01; Status DC Insulin Human Lispro (HumaLOG) 15 units TIDWMEALS SQ Last administered on at 08:49; Start 03/14/21 at 17:00 Insulin Glargine (Lantus Syringe) 40 unit QHS SQ Last administered on 03/16/21at 21:04; Start 03/14/21 at 21:00 Sodium Polystyrene Sulfonate (Kayexalate) 15 gm 1X ONCE PO Last administered on 03/14/21at 13:20; Start 03/14/21 at 14:00; Stop 03/14/21 at 14:01; Status DC Multi-Ingredient Mouthwash/Gargle (Gi Cocktail) 20 ml PRN QID PRN PO CHEST PAIN Last administered on 03/15/21at 18:22; Start 03/15/21 at 18:15 Lisinopril (Prinivil) 5 mg DAILY PO Last administered on 03/17/21at 08:40; Start 03/15/21 at 21:00 Amlodipine Besylate (Norvasc) 10 mg DAILY PO Last administered on 03/17/21at 08:42; Start 03/16/21 at 10:30 Iohexol (Omnipaque 350 Mg/ml) 90 ml 1X ONCE IV Last administered on 03/16/21at 14:49; Start 03/16/21 at 14:45; Stop 03/16/21 at 14:46; Status DC Info (CONTRAST GIVEN -- Rx MONITORING) 1 each PRN DAILY PRN MC SEE COMMENTS; Start 03/16/21 at 14:45; Stop 03/18/21 at 14:44 Active Scripts Active Reported Tramadol Hcl 50 Mg Tablet 50 Mg PO Q6HRS PRN Torsemide 20 Mg Tablet 1 Tab PO DAILY Zetia (Ezetimibe) 10 Mg Tablet 10 Mg PO DAILY Novolog Flexpen (Insulin Aspart) 100 Unit/1 Ml Insuln.pen 10 Unit SQ TIDAC Cymbalta (Duloxetine Hcl) 30 Mg Capsule.dr 30 Mg PO DAILY Spiriva Respimat (Tiotropium [place]) 4 Gm Mist.inhal 2.5 Mcg IH DAILY Levemir Flextouch (Insulin Detemir) 100 Unit/1 Ml Insuln.pen 30 Unit SQ HS Alprazolam 0.25 Mg Tablet 1 Tab PO TID PRN Amlodipine Besylate 5 Mg Tablet 5 Mg PO DAILY Lisinopril 5 Mg Tablet 1 Tab PO DAILY Spironolactone 25 Mg Tablet 25 Mg PO DAILY Furosemide 40 Mg Tablet 40 Mg PO DAILY Gabapentin 600 Mg Tablet 1 Tab PO TID Glimepiride 4 Mg Tablet 1 Tab PO BID Carvedilol 25 Mg Tablet 1 Tab PO BID Clopidogrel (Clopidogrel Bisulfate) 75 Mg Tablet 75 Mg PO DAILY Pravastatin Sodium 80 Mg Tablet 1 Tab PO DAILY Vitals/I & O Vital Sign - Last 24 Hours 03/16/21 03/16/21 03/16/21 03/16/21 09:43 10:30 11:00 12:17 Temp 97.4 97.4 Pulse 89 75 Resp 18 B/P (MAP) 187/64 167/66 (99) Pulse Ox 94 O2 Delivery Room Air Nasal Cannula Nasal Cannula O2 Flow Rate 3.5 3.0 03/16/21 03/16/21 03/16/21 03/16/21 15:00 16:36 16:45 17:47 Temp 98.1 98.1 Pulse 87 87 Resp 16 B/P (MAP) 191/82 (118) 191/82 Pulse Ox 87 O2 Delivery Nasal Cannula Room Air Nasal Cannula O2 Flow Rate 3.5 3.0 03/16/21 03/16/21 03/16/21 03/16/21 17:51 19:25 19:50 20:18 Temp 97.9 97.9 Pulse 97 Resp 16 B/P (MAP) 206/88 (127) Pulse Ox 92 97 O2 Delivery Room Air Nasal Cannula Nasal Cannula Nasal Cannula O2 Flow Rate 3.0 3.0 3.0 03/16/21 03/17/21 03/17/21 03/17/21 23:53 00:46 01:16 03:00 Temp 97.9 97.9 97.9 97.9 Pulse 89 97 Resp 14 20 20 18 B/P (MAP) 105/65 (78) 186/89 (121) Pulse Ox 98 97 O2 Delivery Nasal Cannula Nasal Cannula Nasal Cannula Nasal Cannula O2 Flow Rate 3.0 3.0 3.0 3.0 03/17/21 03/17/21 03/17/21 03/17/21 07:00 07:14 08:40 08:42 Temp 97.8 97.8 Pulse 100 100 100 Resp 18 B/P (MAP) 199/73 (115) 186/89 186/89 Pulse Ox 93 96 O2 Delivery Nasal Cannula Nasal Cannula O2 Flow Rate 3.0 5.0 03/17/21 03/17/21 08:42 08:48 Pulse 100 B/P (MAP) 186/89 O2 Delivery Room Air Intake and Output 03/16/21 03/16/21 03/17/21 15:00 23:00 07:00 Intake Total 600 ml 540 ml Output Total 400 ml Balance 600 ml 140 ml Justifications for Admission Other Justification ALFREDO SEXTON MD Mar 17, 2021 09:16
--- NOTE | 2021-03-17 09:21 | RAD ---
CLINICAL HISTORY: Reason: Left foot ulcer, PVD, bilateral runoff / Spl. Instructions: IV omni 350 90 mls / History: . COMPARISON: none TECHNIQUE:CT angiography of the abdomen, pelvis and bilateral lower extremities was performed followi ng the administration of IV contrast. Reformatted images including 3-D/MIP reconstructions were gener ated. PQRS compliance statement - One or more of the following individualized dose reduction techniques wer e utilized for this study: 1. Automated exposure control 2. Adjustment of the mA and/or kV according to patient size 3. Use of iterative reconstruction technique FINDINGS: CT ANGIOGRAM: Minimal contrast is seen within the aorta and arterial system. The contrast is predominantly in the v enous structures. This significantly limits evaluation. Within these constraints: Atherosclerotic calcifications, particularly infrarenal aorta which remains normal in caliber (1.7 cm in AP dimension). The celiac, SMA and NORMAN appear grossly patent although atheromatous plaque is seen particularly at th e origin of the NORMAN. Atheromatous plaque and calcifications at the origin of the renal arteries bilaterally, likely less t ring 50 percent narrowing. Right common iliac artery is grossly patent with mild atheromatous plaque and calcification. The righ t internal iliac artery is not well seen. The right external iliac artery, common femoral artery are patent. Right SFA stent is seen, patency is unable to be assessed. Right popliteal artery is likely p atent. The trifurcation, posterior and anterior tibial and peroneal arteries are not well assessed. Left common iliac artery is grossly patent. The left internal and external iliac arteries are not wel l assessed. Arterial patency from the left SFA to the ankle is not adequately assessed. Minimal athe rosclerotic plaque and calcifications are seen. Left distal SFA stent is seen although patency is not assessed. ADDITIONAL FINDINGS IN THE ABDOMEN, PELVIS AND LOWER EXTREMITIES: Lower chest: Linear and bandlike opacities are most likely scarring/atelectasis. Coronary calcificati ons are seen. Heart is borderline enlarged. Abdomen and pelvis: Focal low-attenuation along the falciform ligament likely focal fatty infiltration of the liver. Live r is enlarged measuring 22 cm. There has been a cholecystectomy. No biliary ductal dilatation. Pancre as is unremarkable. Spleen is normal in appearance. Adrenal glands are unremarkable. Symmetric nephro grams. No focal renal lesion. No hydronephrosis. No hydroureter. Bladder is unremarkable. Moderate colonic stool content is seen. No small or large bowel dilatation. No bowel obstruction. [place] trever and adnexa are unremarkable. Infiltration in the subcutaneous tissues of the anterior abdomen. Diffuse soft tissue swelling about the right lower leg and right ankle. Trace Campa's cyst. Degenerative changes in spine. No aggressive osseous lesion. IMPRESSION: 1. Suboptimal contrast within the arterial system significantly limits evaluation. 2. Evaluation of the left lower extremity from the left internal/external iliac artery through the a nkle is not well assessed. Consider conventional angiogram for further evaluation. 3. Fatty liver and hepatomegaly. Electronically signed by: Liban Shepherd MD (03/17/2021 9:19 AM) [id number]
--- NOTE | 2021-03-17 10:00 | NUR ---
SW following. Discussed with RN, possible angiogram tomorrow. PO abx for discharge. RN advised no SW needs at this time. SW will continue to follow.
[2021-03-17] MEDS ORDERED: ALBUTEROL SULFATE 2.5 MG/3 ML NEBU. NEB PRN (10:45)
--- NOTE | 2021-03-17 10:49 | PDOC ---
[facility] PROGRESS NOTE Date of Service DOS: DATE: 03/17/21 TIME: 10:46 Chief Complaint Chief Complaint Diabetic foot ulcer with suspected acute osteomyelitis. Diabetes - a1c 11.4 COPD - on 4L/min home O2 Hypertension Hyperkalemia LYNNETTE - vasomotor nephropathy -Patient presented to outside hospital from wound care appointment due to worsening foot ulcers. Concern for osteomyelitis -Transferred here -Start patient on Vanco Zosyn. Consulted infectious disease, podiatry, vascular surgery -DVT prophylaxis -Home meds resumed as indicated -Diet as tolerated 37 MIN PT exam, chart review, > 50% of time spent with exam, chart review, pt care coordination. History of Present Illness History of Present Illness Patient is 60-year-old female presented to outside emergency department yesterday from her risk control specialist office for further evaluation of left foot ulcerations. Patient is a known diabetic. Apparently when she was at her risk control specialist yesterday there was some concern for osteomyelitis of the second metatarsal. Patient does report she has been feeling unwell and weak for a little over a week now. Patient's been having some new onset worsening erythema of her left foot. Visit risk control specialist yesterday outlined the redness and attempt to go to emergency room but already expanded beyond that. 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 X-ray lower extremity concerning for osteomyelitis. When I evaluated patient she was complaining of some foot pain. 03/13 Late entry for 03 13. Patient evaluated and examined at bedside. Was complaining of some ongoing foot pain. Antibiotics started she is tolerating well. Consults to ID podiatry and nephrology. Plan of care discussed with bedside RN. 03/14 Patient evaluated and examined at bedside. Doing well resting in bed. Somewhat hyperkalemic today will try calcium insulin dextrose. For 1 dose. Will hold off until seen by nephrology in regards to trying Lasix for the hyperkalemia. Awaiting podiatry evaluation. Plan of care discussed bedside RN. 03/15: Creatinine improved to 1.1 K4.9 glucose in the 200s. WBC 4.7 sed rate 92 CRP [address] left foot with no notable findings. Arterial doppler with detected peroneal flow possibly greater than 50% stenosis below the knee. Vascular surgery consulted 03/16: Feels the pain and swelling is improved able to feel her toes on her left foot a little more today. No nausea or vomiting. Awaiting vascular surgery input still requiring IV antibiotics. Tolerating home 4 L nasal cannula oxygen well with no hypoxia. Underwent left lower extremity CT with runoff yesterday nondiagnostic. Tentative plans for selective left lower extremity angiography under anesthesia. She does use Spiriva as monotherapy inhaler at home will start aggressive nebulizer treatments today to help mitigate potential respiratory complications. Legs actually a little more red and swollen pain is about the same today. Afebrile. Creatinine improved to 1. Vitals/I&O Vitals/I&O: Vital Signs Date Time Temp Pulse Resp B/P (MAP) Pulse Ox O2 Delivery O2 Flow Rate FiO2 03/17/21 09:48 Nasal Cannula 5.0 03/17/21 08:42 100 186/89 03/17/21 07:14 96 03/17/21 07:00 97.8 18 97.8 I & O 0 03/16/21 03/16/21 03/17/21 15:00 23:00 07:00 Intake Total 600 ml 540 ml Output Total 400 ml Balance 600 ml 140 ml Physical Exam Physical Exam: GEN: Well developed and well nourished female in nad sitting up in chair HEENT: Perrl and EOMI Normal cephalic, atraumatic, OM moist, anicteric NECK: Supple, no JVD LUNGS: Clear bilaterally HEART: RRR, ABDOMEN: Soft, nontender. Obese BS + EXTREMITIES: Prior amputation of left second metatarsal. Erythema on the left foot extending up the ankle. left plantar foot has 2 ulcers present. BLE 1-2 + edema + Chronic venous insuffiency NEUROLOGIC A&O x 3, no obvious focal deficits PSYCHIATRIC: Normal affect, normal mood. Stable SKIN: No rashes, Changes of CVI+ No [place], No CVA or SP tenderness General: Alert, Oriented X3, No acute distress Heart: Regular rate, Other (Nonpapable femoral or popliteal pulses possible related to body habitus. nonpalpable pedal pulses. palpable left radial pulse and brachial pulse.) Lungs: Clear Abdomen: Other (morbidly obese with large pannus) Extremities: Other (She has significant cellultis to left lower extremtity just above the ankle. There are two small superficial wounds on the plantar aspect of he left foot.) Skin: Other (groins free of rash or cellulitis) Labs Labs: Laboratory Tests Test 03/16/21 12:00 03/16/21 17:03 03/16/21 19:23 03/17/21 04:10 Glucose (Fingerstick) 140 mg/dL (70-99) 239 mg/dL (70-99) 218 mg/dL (70-99) Sodium Level 138 mmol/L (136-145) Potassium Level 4.4 mmol/L (3.5-5.1) Chloride Level 102 mmol/L (98-107) Carbon Dioxide Level 32 mmol/L (21-32) Anion Gap 4 (6-14) Blood Urea Nitrogen 14 mg/dL (7-20) Creatinine 1.0 mg/dL (0.6-1.0) Estimated GFR (Cockcroft-Gault) 56.4 Glucose Level 137 mg/dL (70-99) Calcium Level 9.1 mg/dL (8.5-10.1) Test 03/17/21 07:28 Glucose (Fingerstick) 166 mg/dL (70-99) Comment Review of Relevant I have reviewed the following items zuleyka (where applicable) has been applied. Medications: Current Medications Medications (Trade) Dose Ordered Sig/Yovanny Route PRN Reason Start Time Stop Time Status Last Admin Dose Admin Iohexol (Omnipaque 350 Mg/ml) 90 ml 1X ONCE IV 03/16/21 14:45 03/16/21 14:46 DC 03/16/21 14:49 Justifications for Admission Other Justification GRIS HORN MD Mar 17, 2021 10:49
[2021-03-17 11:00] VITALS: BP 132/62
[2021-03-17] MEDS: BUDESONIDE 0.5 MG/2 ML NEBU. NEB SCH ×2 (11:00→20:00)
--- NOTE | 2021-03-17 11:35 | PDOC ---
Renal-Progress Notes Subjective Notes Notes NO NEW COMPLAINTS History of Present Illness Hx of present illness STABLE Vitals Vitals Vital Signs Date Time Temp Pulse Resp B/P (MAP) Pulse Ox O2 Delivery O2 Flow Rate FiO2 03/17/21 11:00 98.4 78 18 132/62 (85) 92 Nasal Cannula 3.0 98.4 Weight Weight [ ] I.O. Intake and Output Intake and Output 03/17/21 07:00 Intake Total 1140 ml Output Total 400 ml Balance 740 ml Intake Oral 1140 ml Output Urine Total 400 ml # Voids 4 Labs Labs Laboratory Tests Test 03/16/21 12:00 03/16/21 17:03 03/16/21 19:23 03/17/21 04:10 Glucose (Fingerstick) 140 mg/dL (70-99) 239 mg/dL (70-99) 218 mg/dL (70-99) Sodium Level 138 mmol/L (136-145) Potassium Level 4.4 mmol/L (3.5-5.1) Chloride Level 102 mmol/L (98-107) Carbon Dioxide Level 32 mmol/L (21-32) Anion Gap 4 (6-14) Blood Urea Nitrogen 14 mg/dL (7-20) Creatinine 1.0 mg/dL (0.6-1.0) Estimated GFR (Cockcroft-Gault) 56.4 Glucose Level 137 mg/dL (70-99) Calcium Level 9.1 mg/dL (8.5-10.1) Test 03/17/21 07:28 Glucose (Fingerstick) 166 mg/dL (70-99) Micro Micro Microbiology 03/15/21 Gram Stain - Final, Resulted 03/15/21 Aerobic and Anaerobic Culture - Preliminary, Resulted 03/13/21 Urine Culture - Final, Complete 03/13/21 Blood Culture - Preliminary, Resulted NO GROWTH AFTER 4 DAYS Review of Systems Constitutional: yes: weakness, alert, oriented Ears/Nose/Throat: Yes: no symptom reported Eyes: Yes: no symptom reported Pulmonary: Yes no symptom reported Cardiovascular: Yes no symptom reported Gastrointestional: Yes: constipation Genitourinary: Yes: no symptom reported Musculoskeletal: Yes: foot pain Skin: Yes no symptom reported Psychiatric/Neurological: Yes: no symptom reported Endocrine: Yes: no symptom reported Physical Exam General Appearance: no apparent distress Skin: warm Respiratory: bilateral CTA Heart: S1S2 Abdomen: soft, bowel sounds present Genitourinary: bladder flat Extremities: pulses present Neurology: alert, oriented Musculoskeletal: Osteoarthritis Assessment Assessment IMP LYNNETTE RESOLVED CKD STAGE 3 WITH CR OF ABOUT 1.3 HYPERKALEMIA-RESOLVED DM WITH NEUROPAHTY LEFT FOOT WOUND HX OF HTN-LABILE PLAN INCREASE [facility] TORSEMIDE WILL FOLLOW KHALIDA ZHANG MD Mar 17, 2021 11:35
[2021-03-17] MEDS ORDERED: IPRATRPIUM/ALBUTEROL 0.5/2.5MG 3 ML NEBU. NEB SCH (12:00)
[2021-03-17] MEDS: LISINOPRIL 20 MG TABLET PO SCH (12:31)
[2021-03-17 15:00] VITALS: BP 173/64
--- NOTE | 2021-03-17 17:26 | PDOC ---
Infectious Disease Note Subjective Subjective pt is feeling better ROS ROS no n/v/d/ Vital Sign Vital Signs Vital Signs Date Time Temp Pulse Resp B/P (MAP) Pulse Ox O2 Delivery O2 Flow Rate FiO2 03/17/21 16:54 80 173/64 03/17/21 15:45 95 Nasal Cannula 3.0 03/17/21 15:00 98.0 18 98.0 Physical Exam PHYSICAL EXAM GEN: Well developed and well nourished female in nad sitting up in chair HEENT: Perrl and EOMI Normal cephalic, atraumatic, OM moist, anicteric NECK: Supple, no JVD LUNGS: Clear bilaterally HEART: RRR, ABDOMEN: Soft, nontender. Obese BS + EXTREMITIES: Prior amputation of left second metatarsal. Erythema on the left foot extending up the ankle. left plantar foot has 2 ulcers present. BLE 1-2 + edema + Chronic venous insuffiency NEUROLOGIC A&O x 3, no obvious focal deficits PSYCHIATRIC: Normal affect, normal mood. Stable SKIN: No rashes, Changes of CVI+ No Abarca, No CVA or SP tenderness Labs Lab Laboratory Tests Test 03/16/21 19:23 03/17/21 04:10 03/17/21 07:28 03/17/21 11:34 Glucose (Fingerstick) 218 mg/dL (70-99) 166 mg/dL (70-99) 124 mg/dL (70-99) Sodium Level 138 mmol/L (136-145) Potassium Level 4.4 mmol/L (3.5-5.1) Chloride Level 102 mmol/L (98-107) Carbon Dioxide Level 32 mmol/L (21-32) Anion Gap 4 (6-14) Blood Urea Nitrogen 14 mg/dL (7-20) Creatinine 1.0 mg/dL (0.6-1.0) Estimated GFR (Cockcroft-Gault) 56.4 Glucose Level 137 mg/dL (70-99) Calcium Level 9.1 mg/dL (8.5-10.1) Test 03/17/21 16:35 Glucose (Fingerstick) 179 mg/dL (70-99) Micro Microbiology 03/15/21 Gram Stain - Final, Resulted 03/15/21 Aerobic and Anaerobic Culture - Preliminary, Resulted 03/13/21 Urine Culture - Final, Complete 03/13/21 Blood Culture - Preliminary, Resulted NO GROWTH AFTER 4 DAYS Objective Assessment Lt plantar wounds, callus ,cellulitis , CT LLE No abscess or OM DM with neuropathy Renal insuffiency H/O Lt 2nd toe partial amputation HTN Chr venous insuffiency Anemia Plan Plan of Care angiogram has been planned Pt can be transitioned to Doxy and augmentin for 10 days when ready for dc home If diarrhea continues check C. difficile PCR NO Need for MRI Foot Local wound care Off load Monitor labs and cultures D/W KAMILLA MEJIAS MD Mar 17, 2021 17:25
[2021-03-17 19:00] VITALS: BP 173/66
[2021-03-17] MEDS: ZOLPIDEM 5 MG TABLET. PO PRN (20:55)
[2021-03-17] MEDS: INSULIN GLARGINE SYRINGE. SQ SCH (20:56)
[2021-03-17] MEDS: DAPTOmycin (GENERIC) IVPB 550 MG in IV NORMAL SALINE 50ML 50 ML IV SCH (20:57)
[2021-03-17 23:32] VITALS: BP 139/54
[2021-03-18] VITALS (7 sets, daily range): BP systolic 169–225; BP diastolic 34–86
[2021-03-18] MEDS: PIPERACILLIN/TAZOBACTAM 3.375 GM in IV NORMAL SALINE 50ML 50 ML IV SCH ×4 (00:08→18:21)
[2021-03-18 04:41] LABS: BASO % 1 % (0-3); EOS # 0.2 x10^3/uL (0.0-0.7); EOS % 3 % (0-3); HEMATOCRIT 24.9 % (36.0-47.0); LYMPH # 1.2 x10^3/uL (1.0-4.8); LYMPH % 24 % (24-48); MEAN CORPUSCULAR HEMOGLOBIN 27 pg (25-35); MEAN CORPUSCULAR HGB CONC 32 g/dL (31-37); MEAN CORPUSCULAR VOLUME 82 fL (79-100); MONO # 0.6 x10^3/uL (0.0-1.1); MONO % 12 % (0-9); NEUT # 2.9 x10^3/uL (1.8-7.7); NEUT % 60 % (31-73); PLATELET COUNT 281 x10^3/uL (140-400); RED BLOOD COUNT 3.03 x10^6/uL (3.50-5.40); RED CELL DISTRIBUTION WIDTH 14.1 % (11.5-14.5); WHITE BLOOD COUNT 4.9 x10^3/uL (4.0-11.0)
[2021-03-18 04:45] LABS: PROTHROMBIN TIME PATIENT 13.8 SEC (11.7-14.0)
[2021-03-18 05:07] LABS: CALCIUM 8.9 mg/dL (8.5-10.1); GFR 56.4; POTASSIUM 4.2 mmol/L (3.5-5.1)
[2021-03-18] MEDS: HEPARIN for SUB-Q USE 5,000 UNIT/ML VIAL. SQ SCH ×3 (05:33→22:02)
[2021-03-18] MEDS: oxyCODONE/APAP 5/325 1 TAB TABLET PO PRN ×2 (05:36→21:57)
[2021-03-18] MEDS ORDERED: fentaNYL PF VIAL 100 MCG/2 ML VIAL IVP PRN ×2 (06:00)
[2021-03-18] MEDS ORDERED: HYDROmorphone 2 MG/ML VIAL IVP PRN (06:00)
[2021-03-18] MEDS ORDERED: PROCHLORPERAZINE 10 MG/2 ML VIAL. IVP PRN (06:00)
[2021-03-18] MEDS ORDERED: IV RINGERS,LACTATED 1000ML 1,000 ML IV SCH (06:00)
[2021-03-18] MEDS ORDERED: MORPHINE SULFATE 2 MG/ML INJ. IVP PRN (06:00)
[2021-03-18] MEDS: IPRATRPIUM/ALBUTEROL 0.5/2.5MG 3 ML NEBU. NEB SCH ×4 (07:21→20:58)
[2021-03-18] MEDS: BUDESONIDE 0.5 MG/2 ML NEBU. NEB SCH ×2 (07:22→20:59)
[2021-03-18] MEDS: LACTOBACILLUS RHAMNOSUS GG 1 CAPSULE. PO SCH ×2 (07:33→21:57)
[2021-03-18] MEDS: SENNOSIDES/DOCUSATE 8.6/50MG TABLET. PO SCH ×2 (07:33→21:00)
[2021-03-18] MEDS: INSULIN LISPRO 300 UNITS/3 ML VIAL. SQ SCH ×3 (07:33→17:00)
[2021-03-18] MEDS: CARVEDILOL 12.5 MG TABLET. PO SCH ×2 (08:22→18:19)
[2021-03-18] MEDS: LISINOPRIL 20 MG TABLET PO SCH (08:24)
[2021-03-18] MEDS: DULoxetine HCL 30 MG CAPSULE.DR PO SCH (08:24)
[2021-03-18] MEDS: GABAPENTIN 300 MG CAPSULE. PO SCH ×3 (08:24→21:56)
[2021-03-18] MEDS: CLOPIDOGREL BISULFATE 75 MG TABLET PO SCH (08:24)
[2021-03-18] MEDS: TORSEMIDE 20 MG TABLET. PO SCH (08:24)
[2021-03-18] MEDS: EZETIMIBE 10 MG TABLET. PO SCH (08:25)
--- NOTE | 2021-03-18 10:40 | PDOC ---
Renal-Progress Notes Subjective Notes Notes NO NEW COMPLAINTS History of Present Illness Hx of present illness STABLE Vitals Vitals Vital Signs Date Time Temp Pulse Resp B/P (MAP) Pulse Ox O2 Delivery O2 Flow Rate FiO2 03/18/21 08:26 89 190/73 (112) 03/18/21 07:23 95 Nasal Cannula 3.0 03/18/21 07:00 98.1 16 98.1 Weight Weight [ ] I.O. Intake and Output Intake and Output 03/18/21 07:00 Output Total 1 ml Balance -1 ml Stool Total 1 ml # Voids 4 Labs Labs Laboratory Tests Test 03/17/21 11:34 03/17/21 16:35 03/17/21 19:27 03/18/21 03:00 Glucose (Fingerstick) 124 mg/dL (70-99) 179 mg/dL (70-99) 198 mg/dL (70-99) White Blood Count 4.9 x10^3/uL (4.0-11.0) Red Blood Count 3.03 x10^6/uL (3.50-5.40) Hemoglobin 8.0 g/dL (12.0-15.5) Hematocrit 24.9 % (36.0-47.0) Mean Corpuscular Volume 82 fL (79-100) Mean Corpuscular Hemoglobin 27 pg (25-35) Mean Corpuscular Hemoglobin Concent 32 g/dL (31-37) Red Cell Distribution Width 14.1 % (11.5-14.5) Platelet Count 281 x10^3/uL (140-400) Neutrophils (%) (Auto) 60 % (31-73) Lymphocytes (%) (Auto) 24 % (24-48) Monocytes (%) (Auto) 12 % (0-9) Eosinophils (%) (Auto) 3 % (0-3) Basophils (%) (Auto) 1 % (0-3) Neutrophils # (Auto) 2.9 x10^3/uL (1.8-7.7) Lymphocytes # (Auto) 1.2 x10^3/uL (1.0-4.8) Monocytes # (Auto) 0.6 x10^3/uL (0.0-1.1) Eosinophils # (Auto) 0.2 x10^3/uL (0.0-0.7) Basophils # (Auto) 0.0 x10^3/uL (0.0-0.2) Prothrombin Time 13.8 SEC (11.7-14.0) Prothromb Time International Ratio 1.1 (0.8-1.1) Sodium Level 139 mmol/L (136-145) Potassium Level 4.2 mmol/L (3.5-5.1) Chloride Level 102 mmol/L (98-107) Carbon Dioxide Level 33 mmol/L (21-32) Anion Gap 4 (6-14) Blood Urea Nitrogen 15 mg/dL (7-20) Creatinine 1.0 mg/dL (0.6-1.0) Estimated GFR (Cockcroft-Gault) 56.4 Glucose Level 125 mg/dL (70-99) Calcium Level 8.9 mg/dL (8.5-10.1) Test 03/18/21 07:30 Glucose (Fingerstick) 135 mg/dL (70-99) Micro Micro Microbiology 03/15/21 Gram Stain - Final, Resulted 03/15/21 Aerobic and Anaerobic Culture - Preliminary, Resulted 03/13/21 Urine Culture - Final, Complete 03/13/21 Blood Culture - Final, Complete NO GROWTH AFTER 5 DAYS Review of Systems Constitutional: yes: weakness, alert, oriented Ears/Nose/Throat: Yes: no symptom reported Eyes: Yes: no symptom reported Pulmonary: Yes no symptom reported Cardiovascular: Yes no symptom reported Gastrointestional: Yes: constipation Genitourinary: Yes: no symptom reported Musculoskeletal: Yes: foot pain Skin: Yes no symptom reported Psychiatric/Neurological: Yes: no symptom reported Endocrine: Yes: no symptom reported Physical Exam General Appearance: no apparent distress Skin: warm Respiratory: bilateral CTA Heart: S1S2 Abdomen: soft, bowel sounds present Genitourinary: bladder flat Extremities: pulses present Neurology: alert, oriented Musculoskeletal: Osteoarthritis Assessment Assessment IMP LYNNETTE RESOLVED CKD STAGE 3 WITH CR OF ABOUT 1.3 HYPERKALEMIA-RESOLVED DM WITH NEUROPAHTY LEFT FOOT WOUND HX OF HTN-LABILE PLAN RENAL FUNCTION STABLE WILL SIGN OFF KHALIDA ZHANG MD Mar 18, 2021 10:40
--- NOTE | 2021-03-18 10:47 | PDOC ---
[facility] PROGRESS NOTE Date of Service DOS: DATE: 03/18/21 TIME: 10:42 Chief Complaint Chief Complaint Diabetic foot ulcer with suspected acute osteomyelitis. Diabetes - a1c 11.4 COPD - on 4L/min home O2 Hypertension Hyperkalemia LYNNETTE - vasomotor nephropathy -Patient presented to outside hospital from wound care appointment due to worsening foot ulcers. Concern for osteomyelitis -Transferred here -Start patient on Vanco Zosyn. Consulted infectious disease, podiatry, vascular surgery -DVT prophylaxis -Home meds resumed as indicated -Diet as tolerated 32 MIN PT exam, chart review, > 50% of time spent with exam, chart review, pt care coordination. History of Present Illness History of Present Illness Patient is 60-year-old female presented to outside emergency department yesterday from [place] for further evaluation of left foot ulcerations. Patient is a known diabetic. Apparently when she was at her [place] yesterday there was some concern for osteomyelitis of the second metatarsal. Patient does report she has been feeling unwell and weak for a little over a week now. Patient's been having some new onset worsening erythema of her left foot. Visit [facility] yesterday outlined the redness and attempt to go to emergency room but already expanded beyond that. 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 X-ray lower extremity concerning for osteomyelitis. When I evaluated patient she was complaining of some foot pain. 03/13 Late entry for 03 13. Patient evaluated and examined at bedside. Was complaining of some ongoing foot pain. Antibiotics started she is tolerating well. Consults to ID podiatry and nephrology. Plan of care discussed with bedside RN. 03/14 Patient evaluated and examined at bedside. Doing well resting in bed. Somewhat hyperkalemic today will try calcium insulin dextrose. For 1 dose. Will hold off until seen by nephrology in regards to trying Lasix for the hyperkalemia. Awaiting podiatry evaluation. Plan of care discussed bedside RN. 03/15: Creatinine improved to 1.1 K4.9 glucose in the 200s. WBC 4.7 sed rate 92 CRP [address] left foot with no notable findings. Arterial doppler with detected peroneal flow possibly greater than 50% stenosis below the knee. Vascular surgery consulted 03/16: Feels the pain and swelling is improved able to feel her toes on her left foot a little more today. No nausea or vomiting. Awaiting vascular surgery input still requiring IV antibiotics. Tolerating home 4 L nasal cannula oxygen well with no hypoxia. 03/17: Underwent left lower extremity CT with runoff yesterday nondiagnostic. Tentative plans for selective left lower extremity angiography under anesthesia. She does use Spiriva as monotherapy inhaler at home will start aggressive nebulizer treatments today to help mitigate potential respiratory complications. Legs actually a little more red and swollen pain is about the same today. Afebrile. Creatinine improved to 1. Afebrile. Labs stable overnight breathing improved with breathing treatments. N.p.o. for left lower extremity angiogram with runoff today. Continue on antibiotics daptomycin. ID recommends doxycycline and Augmentin for 10 days on discharge. Vitals/I&O Vitals/I&O: Vital Signs Date Time Temp Pulse Resp B/P (MAP) Pulse Ox O2 Delivery O2 Flow Rate FiO2 03/18/21 08:26 89 190/73 (112) 03/18/21 07:23 95 Nasal Cannula 3.0 03/18/21 07:00 98.1 16 98.1 I & O 03/17/21 03/17/21 03/18/21 15:00 23:00 07:00 Output Total 1 ml Balance -1 ml Physical Exam Physical Exam: GEN: Well developed and well nourished female in nad sitting up in chair HEENT: Perrl and EOMI Normal cephalic, atraumatic, OM moist, anicteric NECK: Supple, no JVD LUNGS: Clear bilaterally HEART: RRR, ABDOMEN: Soft, nontender. Obese BS + EXTREMITIES: Prior amputation of left second metatarsal. Erythema on the left foot extending up the ankle. left plantar foot has 2 ulcers present. BLE 1-2 + edema + Chronic venous insuffiency NEUROLOGIC A&O x 3, no obvious focal deficits PSYCHIATRIC: Normal affect, normal mood. Stable SKIN: No rashes, Changes of CVI+ No Abarca, No CVA or SP tenderness General: Alert, Oriented X3, No acute distress Heart: Regular rate, Other (Nonpapable femoral or popliteal pulses possible related to body habitus. nonpalpable pedal pulses. palpable left radial pulse and brachial pulse.) Lungs: Clear Abdomen: Other (morbidly obese with large pannus) Extremities: Other (She has significant cellultis to left lower extremtity just above the ankle. There are two small superficial wounds on the plantar aspect of he left foot.) Skin: Other (groins free of rash or cellulitis) Labs Labs: Laboratory Tests Test 03/17/21 11:34 03/17/21 16:35 03/17/21 19:27 03/18/21 03:00 Glucose (Fingerstick) 124 mg/dL (70-99) 179 mg/dL (70-99) 198 mg/dL (70-99) White Blood Count 4.9 x10^3/uL (4.0-11.0) Red Blood Count 3.03 x10^6/uL (3.50-5.40) Hemoglobin 8.0 g/dL (12.0-15.5) Hematocrit 24.9 % (36.0-47.0) Mean Corpuscular Volume 82 fL (79-100) Mean Corpuscular Hemoglobin 27 pg (25-35) Mean Corpuscular Hemoglobin Concent 32 g/dL (31-37) Red Cell Distribution Width 14.1 % (11.5-14.5) Platelet Count 281 x10^3/uL (140-400) Neutrophils (%) (Auto) 60 % (31-73) Lymphocytes (%) (Auto) 24 % (24-48) Monocytes (%) (Auto) 12 % (0-9) Eosinophils (%) (Auto) 3 % (0-3) Basophils (%) (Auto) 1 % (0-3) Neutrophils # (Auto) 2.9 x10^3/uL (1.8-7.7) Lymphocytes # (Auto) 1.2 x10^3/uL (1.0-4.8) Monocytes # (Auto) 0.6 x10^3/uL (0.0-1.1) Eosinophils # (Auto) 0.2 x10^3/uL (0.0-0.7) Basophils # (Auto) 0.0 x10^3/uL (0.0-0.2) Prothrombin Time 13.8 SEC (11.7-14.0) Prothromb Time International Ratio 1.1 (0.8-1.1) Sodium Level 139 mmol/L (136-145) Potassium Level 4.2 mmol/L (3.5-5.1) Chloride Level 102 mmol/L (98-107) Carbon Dioxide Level 33 mmol/L (21-32) Anion Gap 4 (6-14) Blood Urea Nitrogen 15 mg/dL (7-20) Creatinine 1.0 mg/dL (0.6-1.0) Estimated GFR (Cockcroft-Gault) 56.4 Glucose Level 125 mg/dL (70-99) Calcium Level 8.9 mg/dL (8.5-10.1) Test 03/18/21 07:30 Glucose (Fingerstick) 135 mg/dL (70-99) Comment Review of Relevant I have reviewed the following items zuleyka (where applicable) has been applied. Medications: Current Medications Medications (Trade) Dose Ordered Sig/Yovanny Route PRN Reason Start Time Stop Time Status Last Admin Dose Admin Budesonide (Pulmicort) 0.5 mg RTBID NEB 03/17/21 10:45 03/18/21 07:22 Lisinopril (Prinivil) 20 mg DAILY PO 03/17/21 12:00 03/17/21 12:31 Justifications for Admission Other Justification GRIS HORN MD Mar 18, 2021 10:47
--- NOTE | 2021-03-18 13:20 | PDOC ---
Infectious Disease Note Subjective: Subjective Complains of pain in the left lower extremity Denies any fever, chills, nausea, vomiting Awaiting arteriogram today by vascular surgery Discussed with nursing staff Vital Signs: Vital Signs Vital Signs Date Time Temp Pulse Resp B/P (MAP) Pulse Ox O2 Delivery O2 Flow Rate FiO2 03/18/21 12:15 94 Nasal Cannula 3.0 03/18/21 11:00 97.8 73 16 169/61 (97) 97.8 Physical Exam: PHYSICAL EXAM GEN: Well developed and well nourished female in nad sitting up in chair HEENT: Perrl and EOMI Normal cephalic, atraumatic, OM moist, anicteric NECK: Supple, no JVD LUNGS: Clear bilaterally HEART: RRR, ABDOMEN: Soft, nontender. Obese BS + EXTREMITIES: Prior amputation of left second metatarsal. Erythema on the left foot extending up the ankle. left plantar foot has 2 ulcers present. BLE 1-2 + edema + Chronic venous insuffiency NEUROLOGIC A&O x 3, no obvious focal deficits PSYCHIATRIC: Normal affect, normal mood. Stable SKIN: No rashes, Changes of CVI+ No Abarca, No CVA or SP tenderness Medications: Inpatient Meds: Medications reviewed. Labs: Lab Laboratory Tests Test 03/17/21 16:35 03/17/21 19:27 03/18/21 03:00 03/18/21 07:30 Glucose (Fingerstick) 179 mg/dL (70-99) 198 mg/dL (70-99) 135 mg/dL (70-99) White Blood Count 4.9 x10^3/uL (4.0-11.0) Red Blood Count 3.03 x10^6/uL (3.50-5.40) Hemoglobin 8.0 g/dL (12.0-15.5) Hematocrit 24.9 % (36.0-47.0) Mean Corpuscular Volume 82 fL (79-100) Mean Corpuscular Hemoglobin 27 pg (25-35) Mean Corpuscular Hemoglobin Concent 32 g/dL (31-37) Red Cell Distribution Width 14.1 % (11.5-14.5) Platelet Count 281 x10^3/uL (140-400) Neutrophils (%) (Auto) 60 % (31-73) Lymphocytes (%) (Auto) 24 % (24-48) Monocytes (%) (Auto) 12 % (0-9) Eosinophils (%) (Auto) 3 % (0-3) Basophils (%) (Auto) 1 % (0-3) Neutrophils # (Auto) 2.9 x10^3/uL (1.8-7.7) Lymphocytes # (Auto) 1.2 x10^3/uL (1.0-4.8) Monocytes # (Auto) 0.6 x10^3/uL (0.0-1.1) Eosinophils # (Auto) 0.2 x10^3/uL (0.0-0.7) Basophils # (Auto) 0.0 x10^3/uL (0.0-0.2) Prothrombin Time 13.8 SEC (11.7-14.0) Prothromb Time International Ratio 1.1 (0.8-1.1) Sodium Level 139 mmol/L (136-145) Potassium Level 4.2 mmol/L (3.5-5.1) Chloride Level 102 mmol/L (98-107) Carbon Dioxide Level 33 mmol/L (21-32) Anion Gap 4 (6-14) Blood Urea Nitrogen 15 mg/dL (7-20) Creatinine 1.0 mg/dL (0.6-1.0) Estimated GFR (Cockcroft-Gault) 56.4 Glucose Level 125 mg/dL (70-99) Calcium Level 8.9 mg/dL (8.5-10.1) Test 03/18/21 11:04 Glucose (Fingerstick) 123 mg/dL (70-99) Objective: Assessment: Lt plantar wounds, callus ,cellulitis , CT LLE No abscess or OM PAD DM with neuropathy Renal insuffiency H/O Lt 2nd toe partial amputation HTN Chronic venous insuffiency Anemia Plan: Plan of Care Continue current regimen at this time Awaiting arteriogram by vascular surgery We will transition to p.o. antibiotics when ready for discharge depending on clinical condition Local wound care Off load Monitor labs and cultures D/W RN and NOHEMI Simpson MD Mar 18, 2021 13:20
[2021-03-18] MEDS: fentaNYL PF VIAL 100 MCG/2 ML VIAL IVP PRN ×3 (13:36→19:19)
--- NOTE | 2021-03-18 14:20 | PDOC ---
PROGRESS NOTES Date of Service DATE: 03/18/21 TIME: 14:15 Subjective Subjective Patient denies any chest pain or shortness of breath. Continues on chronic oxygen by nasal cannula Objective Objective Vital Signs Date Time Temp Pulse Resp B/P (MAP) Pulse Ox O2 Delivery O2 Flow Rate FiO2 03/18/21 13:36 Room Air 03/18/21 12:15 94 3.0 03/18/21 11:00 97.8 73 16 169/61 (97) 97.8 Intake and Output 03/18/21 07:00 Output Total 1 ml Balance -1 ml Stool Total 1 ml # Voids 4 Physical Exam Abdomen: Other (morbidly obese) Heart: Regular rate, Other (2+ left radial pulse. Unable to palpate lle pulses) Extremities: Other (Significant edema and celluitis left leg below knee. Left foot with small superficial ulcers on plantar aspect of foot) Lungs: Other (On oxygen by nasal cannulae. Shallow respirations) Psych/Mental Status: Mental status NL Diagnosis DIAGNOSIS 1. morbid obesity, BMI 60 2. Peripheral arterial disease s/p bilateral sfa stents 3. Left plantar superficial ulcerations Plan Plan of Care Plan to proceed with left transradial AARO and lower extremity angiogram with possible intervention focused on the left lower extremity. Discussed risks of procedure including bleeding, thrombosis, limb loss, cardiopulmonary complications, and need for future procedures. Patient understands and agrees to proceed. Explained the benefits of transradial access in terms of lower risk of access site complications and patient comfort following the procedure. Comment Review of Relevant I have reviewed the following items zuleyka (where applicable) has been applied. Labs Laboratory Tests Test 03/16/21 17:03 03/16/21 19:23 03/17/21 04:10 03/17/21 07:28 Glucose (Fingerstick) 239 mg/dL (70-99) 218 mg/dL (70-99) 166 mg/dL (70-99) Sodium Level 138 mmol/L (136-145) Potassium Level 4.4 mmol/L (3.5-5.1) Chloride Level 102 mmol/L (98-107) Carbon Dioxide Level 32 mmol/L (21-32) Anion Gap 4 (6-14) Blood Urea Nitrogen 14 mg/dL (7-20) Creatinine 1.0 mg/dL (0.6-1.0) Estimated GFR (Cockcroft-Gault) 56.4 Glucose Level 137 mg/dL (70-99) Calcium Level 9.1 mg/dL (8.5-10.1) Test 03/17/21 11:34 03/17/21 16:35 03/17/21 19:27 03/18/21 03:00 Glucose (Fingerstick) 124 mg/dL (70-99) 179 mg/dL (70-99) 198 mg/dL (70-99) White Blood Count 4.9 x10^3/uL (4.0-11.0) Red Blood Count 3.03 x10^6/uL (3.50-5.40) Hemoglobin 8.0 g/dL (12.0-15.5) Hematocrit 24.9 % (36.0-47.0) Mean Corpuscular Volume 82 fL (79-100) Mean Corpuscular Hemoglobin 27 pg (25-35) Mean Corpuscular Hemoglobin Concent 32 g/dL (31-37) Red Cell Distribution Width 14.1 % (11.5-14.5) Platelet Count 281 x10^3/uL (140-400) Neutrophils (%) (Auto) 60 % (31-73) Lymphocytes (%) (Auto) 24 % (24-48) Monocytes (%) (Auto) 12 % (0-9) Eosinophils (%) (Auto) 3 % (0-3) Basophils (%) (Auto) 1 % (0-3) Neutrophils # (Auto) 2.9 x10^3/uL (1.8-7.7) Lymphocytes # (Auto) 1.2 x10^3/uL (1.0-4.8) Monocytes # (Auto) 0.6 x10^3/uL (0.0-1.1) Eosinophils # (Auto) 0.2 x10^3/uL (0.0-0.7) Basophils # (Auto) 0.0 x10^3/uL (0.0-0.2) Prothrombin Time 13.8 SEC (11.7-14.0) Prothromb Time International Ratio 1.1 (0.8-1.1) Sodium Level 139 mmol/L (136-145) Potassium Level 4.2 mmol/L (3.5-5.1) Chloride Level 102 mmol/L (98-107) Carbon Dioxide Level 33 mmol/L (21-32) Anion Gap 4 (6-14) Blood Urea Nitrogen 15 mg/dL (7-20) Creatinine 1.0 mg/dL (0.6-1.0) Estimated GFR (Cockcroft-Gault) 56.4 Glucose Level 125 mg/dL (70-99) Calcium Level 8.9 mg/dL (8.5-10.1) Test 03/18/21 07:30 03/18/21 11:04 Glucose (Fingerstick) 135 mg/dL (70-99) 123 mg/dL (70-99) Laboratory Tests Test 03/17/21 16:35 03/17/21 19:27 03/18/21 03:00 03/18/21 07:30 Glucose (Fingerstick) 179 mg/dL (70-99) 198 mg/dL (70-99) 135 mg/dL (70-99) White Blood Count 4.9 x10^3/uL (4.0-11.0) Red Blood Count 3.03 x10^6/uL (3.50-5.40) Hemoglobin 8.0 g/dL (12.0-15.5) Hematocrit 24.9 % (36.0-47.0) Mean Corpuscular Volume 82 fL (79-100) Mean Corpuscular Hemoglobin 27 pg (25-35) Mean Corpuscular Hemoglobin Concent 32 g/dL (31-37) Red Cell Distribution Width 14.1 % (11.5-14.5) Platelet Count 281 x10^3/uL (140-400) Neutrophils (%) (Auto) 60 % (31-73) Lymphocytes (%) (Auto) 24 % (24-48) Monocytes (%) (Auto) 12 % (0-9) Eosinophils (%) (Auto) 3 % (0-3) Basophils (%) (Auto) 1 % (0-3) Neutrophils # (Auto) 2.9 x10^3/uL (1.8-7.7) Lymphocytes # (Auto) 1.2 x10^3/uL (1.0-4.8) Monocytes # (Auto) 0.6 x10^3/uL (0.0-1.1) Eosinophils # (Auto) 0.2 x10^3/uL (0.0-0.7) Basophils # (Auto) 0.0 x10^3/uL (0.0-0.2) Prothrombin Time 13.8 SEC (11.7-14.0) Prothromb Time International Ratio 1.1 (0.8-1.1) Sodium Level 139 mmol/L (136-145) Potassium Level 4.2 mmol/L (3.5-5.1) Chloride Level 102 mmol/L (98-107) Carbon Dioxide Level 33 mmol/L (21-32) Anion Gap 4 (6-14) Blood Urea Nitrogen 15 mg/dL (7-20) Creatinine 1.0 mg/dL (0.6-1.0) Estimated GFR (Cockcroft-Gault) 56.4 Glucose Level 125 mg/dL (70-99) Calcium Level 8.9 mg/dL (8.5-10.1) Test 03/18/21 11:04 Glucose (Fingerstick) 123 mg/dL (70-99) Microbiology 03/15/21 Gram Stain - Final, Resulted 03/15/21 Aerobic and Anaerobic Culture - Preliminary, Resulted 03/13/21 Urine Culture - Final, Complete 03/13/21 Blood Culture - Final, Complete NO GROWTH AFTER 5 DAYS Medications Current Medications Ondansetron HCl (Zofran) 4 mg PRN Q6HRS PRN IVP NAUSEA/VOMITING 1ST CHOICE; Start 03/13/21 at 00:00 Calcium Carbonate/ Glycine (Tums) 500 mg PRN Q3HRS PRN PO UPSET STOMACH; Start 03/13/21 at 00:00 Zolpidem Tartrate (Ambien) 5 mg PRN QHS PRN PO INSOMNIA, MAY REPEAT IN 1HR Last administered on 03/17/21at 20:55; Start 03/13/21 at 00:00 Info (Non-Icu Electrolyte Protocol) 1 ea PRN DAILY PRN MC SEE COMMENTS; Start 03/13/21 at 00:00 Oxycodone HCl (Roxicodone) 5 mg PRN Q3HRS PRN PO BREAKTHROUGH PAIN Last administered on 03/15/21at 08:28; Start 03/13/21 at 00:00 Oxycodone/ Acetaminophen (Percocet 5/325) 1 tab PRN Q4HRS PRN PO MODERATE PAIN; Start 03/13/21 at 00:00 Oxycodone/ Acetaminophen (Percocet 5/325) 2 tab PRN Q4HRS PRN PO SEVERE PAIN Last administered on 03/18/21at 05:36; Start 03/13/21 at 00:00 Acetaminophen (Tylenol) 650 mg PRN Q6HRS PRN PO Headaches, Temp > 101.5F; Start 03/13/21 at 00:00 Senna/Docusate Sodium (Senna Plus) 1 tab BID PO Last administered on 03/17/21at 20:54; Start 03/13/21 at 09:00 Heparin Sodium (Porcine) (Heparin Sodium) 5,000 unit Q8HRS SQ Last administered on 03/17/21at 22:25; Start 03/13/21 at 06:00 Alprazolam (Xanax) 0.25 mg PRN TID PRN PO ANXIETY / AGITATION; Start 03/13/21 at 00:00; Stop 03/18/21 at 10:47; Status DC Amlodipine Besylate (Norvasc) 5 mg DAILY PO Last administered on 03/16/21at 08:18; Start 03/13/21 at 09:00; Stop 03/16/21 at 10:24; Status DC Clopidogrel Bisulfate (Plavix) 75 mg DAILY PO Last administered on 03/17/21at 08:43; Start 03/13/21 at 09:00 Duloxetine HCl (Cymbalta) 30 mg DAILY PO Last administered on 03/17/21at 08:44; Start 03/13/21 at 09:00 EZETIMIBE (Zetia) 10 mg DAILY PO Last administered on 03/17/21at 08:41; Start 03/13/21 at 09:00 Lisinopril (Prinivil) 5 mg DAILY PO Last administered on 03/13/21at 08:35; Start 03/13/21 at 09:00; Stop 03/14/21 at 13:00; Status DC Spironolactone (Aldactone) 25 mg DAILY PO Last administered on 03/13/21at 08:38; Start 03/13/21 at 09:00; Stop 03/13/21 at 15:18; Status DC Torsemide (Demadex) 20 mg DAILY PO Last administered on 03/17/21at 08:41; Start 03/13/21 at 09:00 Tramadol HCl (Ultram) 50 mg PRN Q6HRS PRN PO MILD PAIN 1-3; Start 03/13/21 at 00:00 Carvedilol (Coreg) 25 mg BIDWMEALS PO Last administered on 03/18/21at 08:22; Start 03/13/21 at 08:00 Gabapentin (Neurontin) 600 mg TID PO Last administered on 03/17/21at 20:55; Start 03/13/21 at 09:00 Insulin Human Lispro (HumaLOG) 10 units TIDWMEALS SQ Last administered on 03/14/21at 08:56; Start 03/13/21 at 08:00; Stop 03/14/21 at 13:10; Status DC Insulin Glargine (Lantus Syringe) 30 unit QHS SQ Last administered on 03/13/21at 21:30; Start 03/13/21 at 21:00; Stop 03/14/21 at 13:11; Status DC Non-Formulary Medication (Pravastatin Sodium ) 1 tab DAILY PO ; Start 03/13/21 at 09:00; Stop 03/15/21 at 18:10; Status DC Non-Formulary Medication (Tiotropium [place] (Spiriva Respimat)) 2.5 mcg DAILY IH ; Start 03/13/21 at 09:00; Status UNV Vancomycin HCl (Vanco Per Pharmacy) 1 each PRN DAILY PRN MC SEE COMMENTS Last administered on 03/13/21at 04:11; Start 03/13/21 at 00:15; Stop 03/13/21 at 16:38; Status DC Piperacillin Sod/ Tazobactam Sod (Zosyn Per Pharmacy) 1 each PRN DAILY PRN MC SEE COMMENTS; Start 03/13/21 at 00:15 Albuterol/ Ipratropium (Duoneb) 3 ml RTQID NEB Last administered on 03/18/21at 12:15; Start 03/13/21 at 08:00 Piperacillin Sod/ Tazobactam Sod 3.375 gm/Sodium Chloride 50 ml @ 100 mls/hr Q6HRS IV Last administered on 03/18/21at 12:44; Start 03/13/21 at 01:00 Vancomycin HCl 2 gm/Sodium Chloride 500 ml @ 250 mls/hr 1X ONCE IV Last administered on 03/13/21at 02:00; Start 03/13/21 at 02:00; Stop 03/13/21 at 03:59; Status DC Vancomycin HCl 2 gm/Sodium Chloride 500 ml @ 250 mls/hr Q12H IV Last administered on 03/13/21at 14:58; Start 03/13/21 at 14:00; Stop 03/13/21 at 16:36; Status DC Vancomycin HCl (Vancomycin Trough Level) 1 each 1X ONCE MC ; Start 03/14/21 at 13:30; Stop 03/13/21 at 16:38; Status DC Lactobacillus Rhamnosus (Culturelle) 1 cap BID PO Last administered on 03/17/21at 20:54; Start 03/13/21 at 21:00 Daptomycin 550 mg/ Sodium Chloride 50 ml @ 100 mls/hr Q24H IV Last administered on 03/17/21at 20:57; Start 03/13/21 at 17:00 Calcium Gluconate (Calcium Gluconate) 1,000 mg 1X ONCE IVP Last administered on 03/14/21at 12:19; Start 03/14/21 at 10:00; Stop 03/14/21 at 10:01; Status DC Dextrose (Dextrose 50%-Water Syringe) 25 gm 1X ONCE IV Last administered on 03/14/21at 12:19; Start 03/14/21 at 10:00; Stop 03/14/21 at 10:01; Status DC Insulin Human Regular (HumuLIN R VIAL) 10 unit 1X ONCE IV Last administered on 03/14/21at 13:31; Start 03/14/21 at 10:00; Stop 03/14/21 at 10:01; Status DC Insulin Human Lispro (HumaLOG) 15 units TIDWMEALS SQ Last administered on 03/17/21at 17:00; Start 03/14/21 at 17:00 Insulin Glargine (Lantus Syringe) 40 unit QHS SQ Last administered on 03/17/21at 20:56; Start 03/14/21 at 21:00 Sodium Polystyrene Sulfonate (Kayexalate) 15 gm 1X ONCE PO Last administered on 03/14/21at 13:20; Start 03/14/21 at 14:00; Stop 03/14/21 at 14:01; Status DC Multi-Ingredient Mouthwash/Gargle (Gi Cocktail) 20 ml PRN QID PRN PO CHEST PAIN Last administered on 03/15/21at 18:22; Start 03/15/21 at 18:15 Lisinopril (Prinivil) 5 mg DAILY PO Last administered on 03/17/21at 08:40; Start 03/15/21 at 21:00; Stop 03/17/21 at 11:36; Status DC Amlodipine Besylate (Norvasc) 10 mg DAILY PO Last administered on 03/17/21at 08:42; Start 03/16/21 at 10:30 Iohexol (Omnipaque 350 Mg/ml) 90 ml 1X ONCE IV Last administered on 03/16/21at 14:49; Start 03/16/21 at 14:45; Stop 03/16/21 at 14:46; Status DC Info (CONTRAST GIVEN -- Rx MONITORING) 1 each PRN DAILY PRN MC SEE COMMENTS; Start 03/16/21 at 14:45; Stop 03/18/21 at 14:44 Budesonide (Pulmicort) 0.5 mg RTBID NEB Last administered on 03/18/21at 07:22; Start 03/17/21 at 10:45 Albuterol Sulfate (Ventolin Neb Soln) 2.5 mg PRN Q4HRS PRN NEB SHORTNESS OF BREATH; Start 03/17/21 at 10:45 Albuterol/ Ipratropium (Duoneb) 3 ml RTQID NEB ; Start 03/17/21 at 12:00; Status UNV Lisinopril (Prinivil) 20 mg DAILY PO Last administered on 03/17/21at 12:31; Start 03/17/21 at 12:00 Fentanyl Citrate (Fentanyl 2ml Vial) 25 mcg PRN Q5MIN PRN IVP MILD PAIN 1-3; Start 03/18/21 at 06:00; Stop 03/19/21 at 05:59 Fentanyl Citrate (Fentanyl 2ml Vial) 50 mcg PRN Q5MIN PRN IVP MODERATE PAIN 4- 6; Start 03/18/21 at 06:00; Stop 03/19/21 at 05:59 Morphine Sulfate (Morphine Sulfate) 1 mg PRN Q10MIN PRN IVP SEVERE PAIN 7-10; Start 03/18/21 at 06:00; Stop 03/19/21 at 05:59 Ringer's Solution 1,000 ml @ 30 mls/hr Q24H IV ; Start 03/18/21 at 06:00; Stop 03/18/21 at 17:59 Hydromorphone HCl (Dilaudid) 0.5 mg PRN Q10MIN PRN IVP SEVERE PAIN 7-10, 2nd CHOICE; Start 03/18/21 at 06:00; Stop 03/19/21 at 05:59 Prochlorperazine Edisylate (Compazine) 5 mg PACU PRN PRN IVP NAUSEA, MRX1; Start 03/18/21 at 06:00; Stop 03/19/21 at 05:59 Fentanyl Citrate (Fentanyl 2ml Vial) 25 mcg PRN Q3HRS PRN IVP SEVERE PAIN 7-10 Last administered on 03/18/21at 13:36; Start 03/18/21 at 13:30 Active Scripts Active Reported Tramadol Hcl 50 Mg Tablet 50 Mg PO Q6HRS PRN Torsemide 20 Mg Tablet 1 Tab PO DAILY Zetia (Ezetimibe) 10 Mg Tablet 10 Mg PO DAILY Novolog Flexpen (Insulin Aspart) 100 Unit/1 Ml Insuln.pen 10 Unit SQ TIDAC Cymbalta (Duloxetine Hcl) 30 Mg Capsule.dr 30 Mg PO DAILY Spiriva Respimat (Tiotropium [place]) 4 Gm Mist.inhal 2.5 Mcg IH DAILY Levemir Flextouch (Insulin Detemir) 100 Unit/1 Ml Insuln.pen 30 Unit SQ HS Alprazolam 0.25 Mg Tablet 1 Tab PO TID PRN Amlodipine Besylate 5 Mg Tablet 5 Mg PO DAILY Lisinopril 5 Mg Tablet 1 Tab PO DAILY Spironolactone 25 Mg Tablet 25 Mg PO DAILY Furosemide 40 Mg Tablet 40 Mg PO DAILY Gabapentin 600 Mg Tablet 1 Tab PO TID Glimepiride 4 Mg Tablet 1 Tab PO BID Carvedilol 25 Mg Tablet 1 Tab PO BID Clopidogrel (Clopidogrel Bisulfate) 75 Mg Tablet 75 Mg PO DAILY Pravastatin Sodium 80 Mg Tablet 1 Tab PO DAILY Vitals/I & O Vital Sign - Last 24 Hours 03/17/21 03/17/21 03/17/21 03/17/21 15:00 15:45 16:54 19:00 Temp 98.0 98.5 98.0 98.5 Pulse 80 80 83 Resp 18 18 B/P (MAP) 173/64 (100) 173/64 173/66 (101) Pulse Ox 93 95 93 O2 Delivery Nasal Cannula Nasal Cannula Nasal Cannula O2 Flow Rate 3.0 3.0 3.0 03/17/21 03/17/21 03/17/21 03/17/21 20:00 20:22 21:25 23:32 Temp 98.5 98.5 Pulse 83 Resp 20 18 B/P (MAP) 139/54 (82) Pulse Ox 95 95 93 O2 Delivery Nasal Cannula Nasal Cannula Nasal Cannula Nasal Cannula O2 Flow Rate 3.0 3.0 3.0 3.0 03/18/21 03/18/21 03/18/21 03/18/21 03:00 05:36 06:06 07:00 Temp 98.1 98.1 98.1 98.1 Pulse 81 87 Resp 18 20 20 16 B/P (MAP) 189/34 (85) 189/79 (115) Pulse Ox 94 94 94 95 O2 Delivery Nasal Cannula Nasal Cannula Nasal Cannula Room Air O2 Flow Rate 3.0 3.0 3.0 03/18/21 03/18/21 03/18/21 03/18/21 07:00 07:23 08:22 08:26 Pulse 89 89 B/P (MAP) 190/73 190/73 (112) Pulse Ox 95 O2 Delivery Nasal Cannula Nasal Cannula O2 Flow Rate 3.0 3.0 03/18/21 03/18/21 03/18/21 11:00 12:15 13:36 Temp 97.8 97.8 Pulse 73 Resp 16 B/P (MAP) 169/61 (97) Pulse Ox 94 94 O2 Delivery Room Air Nasal Cannula Room Air O2 Flow Rate 3.0 Intake and Output 03/17/21 03/17/21 03/18/21 15:00 23:00 07:00 Output Total 1 ml Balance -1 ml Justifications for Admission Other Justification ALFREDO SEXTON MD Mar 18, 2021 14:20
[2021-03-18] MEDS ORDERED: VERAPAMIL 5 MG/2 ML VIAL. ONE (14:33)
[2021-03-18] MEDS ORDERED: NITROGLYCERIN 200 MCG/2 ML SYRINGE FOR CATH/VASC LAB. ONE ×2 (14:33→15:34)
[2021-03-18] MEDS ORDERED: IODIXANOL 320 MG/ML 100 ML VIAL. ONE (14:33)
[2021-03-18] MEDS ORDERED: LIDOCAINE 1% Multi-Dose 20 ML VIAL. ONE (14:33)
[2021-03-18] MEDS ORDERED: HEPARIN for IV BOLUS 10,000 UNIT/10 ML VIAL. ONE ×2 (14:33→15:21)
[2021-03-18] MEDS ORDERED: fentaNYL PF VIAL 100 MCG/2 ML VIAL ONE ×2 (14:39→16:37)
[2021-03-18] MEDS ORDERED: ESMOLOL 100 MG/10 ML VIAL. IVP ONE (15:00)
[2021-03-18] MEDS ORDERED: METOPROLOL IV PUSH 5 MG/5 ML VIAL. IVP ONE (15:07)
[2021-03-18] MEDS ORDERED: NITROGLYCERIN 200 MCG/2 ML SYRINGE FOR CATH/VASC LAB. IART ONE (15:30)
[2021-03-18] MEDS ORDERED: IODIXANOL 320 MG/ML 100 ML VIAL. IART ONE (15:30)
[2021-03-18] MEDS ORDERED: VERAPAMIL 5 MG/2 ML VIAL. IART ONE (15:30)
[2021-03-18] MEDS ORDERED: HEPARIN for IV BOLUS 10,000 UNIT/10 ML VIAL. IART ONE (15:30)
[2021-03-18] MEDS ORDERED: LIDOCAINE 1% Multi-Dose 20 ML VIAL. INJ ONE (15:30)
[2021-03-18] MEDS ORDERED: HEPARIN for IV BOLUS 10,000 UNIT/10 ML VIAL. IV ONE (15:30)
[2021-03-18] MEDS ORDERED: KETAMINE HCL IN NACL, ISO-OSM 50 MG/5 ML SYRINGE ONE (15:38)
[2021-03-18] MEDS ORDERED: CONTRAST GIVEN. MC PRN (15:45)
[2021-03-18] MEDS ORDERED: PROTAMINE 50 MG/5 ML VIAL. IV ONE ×2 (16:09→16:15)
--- NOTE | 2021-03-18 16:25 | PDOC4 ---
OPERATIVE NOTE Date: Date: Mar 18, 2021 Pre-Op Diagnosis: 1. Super Morbid obesity, BMI 60 2. Peripheral arterial disease s/p bilateral SFA stents 3. COPD on chronic oxygen therapy 4. Hypertension 5. Left plantar foot wounds, superficial Post-Op Diagnosis: Same Procedure Performed: 1. Ultrasound guided access left radial artery 2. Abdominal aortogram 3. Bilateral lower extremity angiogram 4. Selective catheterization left common femoral from left radial artery 5. Selective catheterization right common femoral from left radial artery Surgeon: Tyrel Talavera Anesthesia Type: Monitored anesthesia care Blood Loss: Minimal Specimans Obtained: None Findings: The infrarenal aorta, common, external, common femoral arteries were widely patent. There was mild diffuse stenosis of the superficial femoral arteries bilaterally with widely patent SFA stents. The popliteal arteries were patent bilaterally. There was runoff via the anterior tibial and posterior tibial bilaterally with dominant runoff via the posterior tibial to the plantar arteries bilaterally. There was no evidence of significant arterial insufficiency to the left lower extremity. No need for arterial intervention prior to debridement of left plantar foot wounds. Complications: None Operative Note: The patient was brought to the laboratory miller and positioned on the table with the left arm out. The left wrist was then prepped and draped in sterile fashion. Anesthesia provided assistance with monitored anesthesia care for sedation. The left radial artery was then accessed under ultrasound with and image saved to the medical record. I then placed a 4/5 Fr slender sheath in the left radial artery. I then administered a cocktail of 2500 units of heparin, 2.5 mg of verapamil and 200 mcg of nitroglycerin to prevent spasm. A 0.035 glide advantage and a cobra 2 catheter were then used to traverse into the proximal left subclavian artery. 90197 units of heparin were then administered. She had a type 3 arch with a tortuous/elongated left subclavian. The 100 cm pigtail was then used to select the descending thoracic aorta. A 4F PV multicurve catheter was then positioned in the pararenal aorta and abdominal aortogram was then performed. This demonstrated a widely patent infrarenal aorta and aortic bifurcation with patent iliac bifurcations bilaterally. The renal arteries were not well visualized. The external iliac arteries were patent bilaterally. The left common femoral artery was then selected as a second order branch and step angiography performed of the left lower extremity. The common femoral artery was widely patent on the left. There was mild diffuse disease of the SFA wi thout evidence of hemodynamically significant stenosis. The previous left sfa stent near the adductor hiatus was widely patent. The popliteal artery and the tibial trifurcation was widely patent. There was dominant runoff via the posterior tibial into the plantar arteries with brisk inflow into the plantar aspect of the left foot. Additionally the anterior tibial artery was patent to the ankle. I then selected the rigth common femoral artery by retracting the PV catheter into the aorta and selectively catheterizing this second order branch. Step angiography was then performed of the right leg with similar findings to the left with a long length of right sfa stent that was widely patent. Protamine was then administered and the catheters and sheath removed with application of a TR band with good hemostasis. The patient was then transferred to the recovery room in stable condition. The patient has no significant arterial insufficiency to the left lower extremity. Would continue wound care to left plantar foot wounds. She would benefit from compression of the left leg and elevation to reduce swelling/edema. TYREL TALAVERA MD Mar 18, 2021 16:24
[2021-03-18] MEDS ORDERED: ONDANSETRON PF 4 MG/2 ML VIAL. ONE (16:37)
[2021-03-18] MEDS ORDERED: INSULIN LISPRO 100 UNIT/ML 3ML VIAL for OP,RR ONLY. SQ PRN (16:45)
[2021-03-18] MEDS: DAPTOmycin (GENERIC) IVPB 550 MG in IV NORMAL SALINE 50ML 50 ML IV SCH (21:00)
[2021-03-18] MEDS: INSULIN GLARGINE SYRINGE. SQ SCH (21:00)
[2021-03-19] MEDS: oxyCODONE/APAP 5/325 1 TAB TABLET PO PRN ×2 (02:24→07:12)
[2021-03-19 03:00] VITALS: BP 141/59
[2021-03-19] MEDS: PIPERACILLIN/TAZOBACTAM 3.375 GM in IV NORMAL SALINE 50ML 50 ML IV SCH ×3 (06:00→11:57)
[2021-03-19] MEDS: HEPARIN for SUB-Q USE 5,000 UNIT/ML VIAL. SQ SCH (06:00)
--- NOTE | 2021-03-19 06:52 | PDOC ---
Infectious Disease Note Subjective: Subjective Patient denies any complaints this morning Underwent arteriogram by vascular surgery yesterday Left lower extremity is more red but pain has improved Discussed with nursing staff Vital Signs: Vital Signs Vital Signs Date Time Temp Pulse Resp B/P (MAP) Pulse Ox O2 Delivery O2 Flow Rate FiO2 03/19/21 03:00 97.8 74 18 141/59 (86) 95 Nasal Cannula 3.0 97.8 Physical Exam: PHYSICAL EXAM GEN: Well developed and well nourished female lying in bed comfortably HEENT: Perrl and EOMI Normal cephalic, atraumatic, OM moist, anicteric NECK: Supple, no JVD LUNGS: Clear bilaterally HEART: RRR, ABDOMEN: Soft, nontender. Obese BS + EXTREMITIES: Prior amputation of left second metatarsal. Erythema on the left foot extending up the ankle ? Would be from yesterday's procedure. left plantar foot has 2 ulcers present. BLE 1-2 + edema + Chronic venous insuffiency NEUROLOGIC A&O x 3, no obvious focal deficits PSYCHIATRIC: Normal affect, normal mood. Stable SKIN: No rashes, Changes of CVI+ No Abar[place], No CVA or SP tenderness Medications: Inpatient Meds: Medications reviewed. Labs: Lab Laboratory Tests Test 03/18/21 07:30 03/18/21 11:04 03/18/21 16:30 03/18/21 21:03 Glucose (Fingerstick) 135 mg/dL (70-99) 123 mg/dL (70-99) 154 mg/dL (70-99) 153 mg/dL (70-99) Objective: Assessment: Lt plantar wounds, callus ,cellulitis , CT LLE No abscess or OM PAD DM with neuropathy Renal insuffiency H/O Lt 2nd toe partial amputation HTN Chronic venous insuffiency Anemia Procedure Performed: 1. Ultrasound guided access left radial artery 2. Abdominal aortogram 3. Bilateral lower extremity angiogram 4. Selective catheterization left common femoral from left radial artery 5. Selective catheterization right common femoral from left radial artery Plan: Plan of Care Continue current treatment Ready for discharge ,transition to p.o. antibiotics augmentin and doxycycline for 10 days Local wound care as directed Off load Will sign off. Call with any questions D/W NOHEMI MEJIAS MD Mar 19, 2021 06:52
[2021-03-19 07:00] VITALS: BP 248/93
[2021-03-19] MEDS: BUDESONIDE 0.5 MG/2 ML NEBU. NEB SCH (07:35)
[2021-03-19] MEDS: IPRATRPIUM/ALBUTEROL 0.5/2.5MG 3 ML NEBU. NEB SCH ×2 (07:35→11:50)
[2021-03-19] MEDS: TORSEMIDE 20 MG TABLET. PO SCH (08:07)
[2021-03-19] MEDS: LACTOBACILLUS RHAMNOSUS GG 1 CAPSULE. PO SCH (08:07)
[2021-03-19] MEDS: DULoxetine HCL 30 MG CAPSULE.DR PO SCH (08:07)
[2021-03-19] MEDS: EZETIMIBE 10 MG TABLET. PO SCH (08:07)
[2021-03-19] MEDS: GABAPENTIN 300 MG CAPSULE. PO SCH ×2 (08:08→13:00)
[2021-03-19] MEDS: LISINOPRIL 20 MG TABLET PO SCH (08:08)
[2021-03-19] MEDS: CLOPIDOGREL BISULFATE 75 MG TABLET PO SCH (08:08)
[2021-03-19] MEDS: CARVEDILOL 12.5 MG TABLET. PO SCH (08:09)
[2021-03-19] MEDS: INSULIN LISPRO 300 UNITS/3 ML VIAL. SQ SCH ×2 (08:13→12:00)
[2021-03-19] MEDS: SENNOSIDES/DOCUSATE 8.6/50MG TABLET. PO SCH (08:13)
[2021-03-19 09:00] VITALS: BP 219/71
[2021-03-19] MEDS ORDERED: hydrALAZINE 20 MG/ML VIAL. IVP ONE (09:30)
[2021-03-19 10:10] VITALS: BP 208/92
--- NOTE | 2021-03-19 10:48 | PDOC ---
PROGRESS NOTES Date of Service DATE: 03/19/21 TIME: 10:47 Subjective Subjective Patient was seen at bedside. Denies overnight events or constitutional symptoms. Patient denies any pain to the left foot. S/p arteriogram 03/19 marked patent pedal arterial inflow Objective Objective Vital Signs Date Time Temp Pulse Resp B/P (MAP) Pulse Ox O2 Delivery O2 Flow Rate FiO2 03/19/21 10:10 75 208/92 (130) 03/19/21 08:00 Nasal Cannula 3.0 03/19/21 07:38 97 03/19/21 07:00 97.5 22 97.5 Intake and Output 03/19/21 07:00 Intake Total 700 ml Balance 700 ml Intake Oral 700 ml # Voids 3 # Bowel Movements 1 Physical Exam Physical Exam General: Pleasant without apparent distress, AOx3 Left lower extremity focused Dermatology: -Mild recurrent H PK to the subsecond and third metatarsal head. Upon debridement, there is a partial-thickness wound only on the plantar aspect of the third metatarsal head without any exposed tendon, bone underneath. There is no active drainage, proximal streaking or fluctuance. Vascular: -DP/PT palpable -Foot is warm to touch with CFT less than 3 seconds x 5 - no periwound erythema to the plantar forefoot -Improved circumferential nonpitting edema and erythema extending from the ankle level proximally to the knee without any open sores or drainage or fluctuance Neurology: -Light touch sensation diminished to the level of distal ankle MSK: -[-] TTP at the plantar forefoot - [-] TTP at calf upon squeeze -Able to move digits -Muscle strength 5 out of 5 across ankle joint -[-] TTP to popliteal lymph nodes -S/p left second digit amputation Plan Plan of Care Left diabetic foot ulcer, cellulitis, PVD peripheral neuropathy and diabetes S/p left second toe amputation 03/18 arteriogram was insignificant for pedal vascular inflow insufficiency -No surgical intervention from my perspective on the left foot. -There is a partial-thickness wound to the plantar third metatarsal head without clinical signs of infection. -Twice daily dressing change: Betadine soaked 2 x 2 gauze, tape to the plantar foot wounds. Keep the foot clean dry and intact otherwise. -Patient has an outside pharmacy scheduler to follow after discharge -Antibiotics: Per ID's recommendation [Augmentin and doxycycline for 10 days oral as an outpatient] Comment Review of Relevant I have reviewed the following items [email or web address] (where applicable) has been applied. Labs Laboratory Tests Test 03/17/21 11:34 03/17/21 16:35 03/17/21 19:27 03/18/21 03:00 Glucose (Fingerstick) 124 mg/dL (70-99) 179 mg/dL (70-99) 198 mg/dL (70-99) White Blood Count 4.9 x10^3/uL (4.0-11.0) Red Blood Count 3.03 x10^6/uL (3.50-5.40) Hemoglobin 8.0 g/dL (12.0-15.5) Hematocrit 24.9 % (36.0-47.0) Mean Corpuscular Volume 82 fL (79-100) Mean Corpuscular Hemoglobin 27 pg (25-35) Mean Corpuscular Hemoglobin Concent 32 g/dL (31-37) Red Cell Distribution Width 14.1 % (11.5-14.5) Platelet Count 281 x10^3/uL (140-400) Neutrophils (%) (Auto) 60 % (31-73) Lymphocytes (%) (Auto) 24 % (24-48) Monocytes (%) (Auto) 12 % (0-9) Eosinophils (%) (Auto) 3 % (0-3) Basophils (%) (Auto) 1 % (0-3) Neutrophils # (Auto) 2.9 x10^3/uL (1.8-7.7) Lymphocytes # (Auto) 1.2 x10^3/uL (1.0-4.8) Monocytes # (Auto) 0.6 x10^3/uL (0.0-1.1) Eosinophils # (Auto) 0.2 x10^3/uL (0.0-0.7) Basophils # (Auto) 0.0 x10^3/uL (0.0-0.2) Prothrombin Time 13.8 SEC (11.7-14.0) Prothromb Time International Ratio 1.1 (0.8-1.1) Sodium Level 139 mmol/L (136-145) Potassium Level 4.2 mmol/L (3.5-5.1) Chloride Level 102 mmol/L (98-107) Carbon Dioxide Level 33 mmol/L (21-32) Anion Gap 4 (6-14) Blood Urea Nitrogen 15 mg/dL (7-20) Creatinine 1.0 mg/dL (0.6-1.0) Estimated GFR (Cockcroft-Gault) 56.4 Glucose Level 125 mg/dL (70-99) Calcium Level 8.9 mg/dL (8.5-10.1) Test 03/18/21 07:30 03/18/21 11:04 03/18/21 16:30 03/18/21 21:03 Glucose (Fingerstick) 135 mg/dL (70-99) 123 mg/dL (70-99) 154 mg/dL (70-99) 153 mg/dL (70-99) Test 03/19/21 07:52 Glucose (Fingerstick) 142 mg/dL (70-99) Laboratory Tests Test 03/18/21 11:04 03/18/21 16:30 03/18/21 21:03 03/19/21 07:52 Glucose (Fingerstick) 123 mg/dL (70-99) 154 mg/dL (70-99) 153 mg/dL (70-99) 142 mg/dL (70-99) Microbiology 03/15/21 Gram Stain - Final, Resulted 03/15/21 Aerobic and Anaerobic Culture - Preliminary, Resulted 03/13/21 Urine Culture - Final, Complete 03/13/21 Blood Culture - Final, Complete NO GROWTH AFTER 5 DAYS Medications Current Medications Ondansetron HCl (Zofran) 4 mg PRN Q6HRS PRN IVP NAUSEA/VOMITING 1ST CHOICE Last administered on 03/18/21at 16:46; Start 03/13/21 at 00:00 Calcium Carbonate/ Glycine (Tums) 500 mg PRN Q3HRS PRN PO UPSET STOMACH; Start 03/13/21 at 00:00 Zolpidem Tartrate (Ambien) 5 mg PRN QHS PRN PO INSOMNIA, MAY REPEAT IN 1HR Last administered on 03/17/21at 20:55; Start 03/13/21 at 00:00 Info (Non-Icu Electrolyte Protocol) 1 ea PRN DAILY PRN MC SEE COMMENTS; Start 03/13/21 at 00:00 Oxycodone HCl (Roxicodone) 5 mg PRN Q3HRS PRN PO BREAKTHROUGH PAIN Last administered on 03/15/21 08:28; Start 03/13/21 at 00:00 Oxycodone/ Acetaminophen (Percocet 5/325) 1 tab PRN Q4HRS PRN PO MODERATE PAIN; Start 03/13/21 at 00:00 Oxycodone/ Acetaminophen (Percocet 5/325) 2 tab PRN Q4HRS PRN PO SEVERE PAIN Last administered on 03/19/21 02:24; Start 03/13/21 at 00:00 Acetaminophen (Tylenol) 650 mg PRN Q6HRS PRN PO Headaches, Temp > 101.5F; Start 03/13/21 at 00:00 Senna/Docusate Sodium (Senna Plus) 1 tab BID PO Last administered on 03/17/21 20:54; Start 03/13/21 at 09:00 Heparin Sodium (Porcine) (Heparin Sodium) 5,000 unit Q8HRS SQ Last administered on 03/18/21 22:02; Start 03/13/21 at 06:00 Alprazolam (Xanax) 0.25 mg PRN TID PRN PO ANXIETY / AGITATION; Start 03/13/21 at 00:00; Stop 03/18/21 at 10:47; Status DC Amlodipine Besylate (Norvasc) 5 mg DAILY PO Last administered on 03/16/21at 08:18; Start 03/13/21 at 09:00; Stop 03/16/21 at 10:24; Status DC Clopidogrel Bisulfate (Plavix) 75 mg DAILY PO Last administered on 03/19/21 08:08; Start 03/13/21 at 09:00 Duloxetine HCl (Cymbalta) 30 mg DAILY PO Last administered on 03/19/21 08:07; Start 03/13/21 at 09:00 EZETIMIBE (Zetia) 10 mg DAILY PO Last administered on 03/19/21 08:07; Start 03/13/21 at 09:00 Lisinopril (Prinivil) 5 mg DAILY PO Last administered on 03/13/21at 08:35; Start 03/13/21 at 09:00; Stop 03/14/21 at 13:00; Status DC Spironolactone (Aldactone) 25 mg DAILY PO Last administered on 03/13/21at 08:38; Start 03/13/21 at 09:00; Stop 03/13/21 at 15:18; Status DC Torsemide (Demadex) 20 mg DAILY PO Last administered on 03/19/21at 08:07; Start 03/13/21 at 09:00 Tramadol HCl (Ultram) 50 mg PRN Q6HRS PRN PO MILD PAIN 1-3; Start 03/13/21 at 0 0:00 Carvedilol (Coreg) 25 mg BIDWMEALS PO Last administered on 03/19/21at 08:09; Start 03/13/21 at 08:00 Gabapentin (Neurontin) 600 mg TID PO Last administered on 03/19/21at 08:08; Start 03/13/21 at 09:00 Insulin Human Lispro (HumaLOG) 10 units TIDWMEALS SQ Last administered on 03/14/21at 08:56; Start 03/13/21 at 08:00; Stop 03/14/21 at 13:10; Status DC Insulin Glargine (Lantus Syringe) 30 unit QHS SQ Last administered on 03/13/21at 21:30; Start 03/13/21 at 21:00; Stop 03/14/21 at 13:11; Status DC Non-Formulary Medication (Pravastatin Sodium ) 1 tab DAILY PO ; Start 03/13/21 at 09:00; Stop 03/15/21 at 18:10; Status DC Non-Formulary Medication (Tiotropium [place] (Spiriva Respimat)) 2.5 mcg DAILY IH ; Start 03/13/21 at 09:00; Status UNV Vancomycin HCl (Vanco Per Pharmacy) 1 each PRN DAILY PRN MC SEE COMMENTS Last administered on 03/13/21at 04:11; Start 03/13/21 at 00:15; Stop 03/13/21 at 16:38; Status DC Piperacillin Sod/ Tazobactam Sod (Zosyn Per Pharmacy) 1 each PRN DAILY PRN MC SEE COMMENTS; Start 03/13/21 at 00:15 Albuterol/ Ipratropium (Duoneb) 3 ml RTQID NEB Last administered on 03/19/21at 07:35; Start 03/13/21 at 08:00 Piperacillin Sod/ Tazobactam Sod 3.375 gm/Sodium Chloride 50 ml @ 100 mls/hr Q6HRS IV Last administered on 03/19/21at 00:00; Start 03/13/21 at 01:00 Vancomycin HCl 2 gm/Sodium Chloride 500 ml @ 250 mls/hr 1X ONCE IV Last administered on 03/13/21at 02:00; Start 03/13/21 at 02:00; Stop 03/13/21 at 03:59; Status DC Vancomycin HCl 2 gm/Sodium Chloride 500 ml @ 250 mls/hr Q12H IV Last administered on 03/13/21at 14:58; Start 03/13/21 at 14:00; Stop 03/13/21 at 16:36; Status DC Vancomycin HCl (Vancomycin Trough Level) 1 each 1X ONCE MC ; Start 03/14/21 at 13:30; Stop 03/13/21 at 16:38; Status DC Lactobacillus Rhamnosus (Culturelle) 1 cap BID PO Last administered on 03/19/21at 08:07; Start 03/13/21 at 21:00 Daptomycin 550 mg/ Sodium Chloride 50 ml @ 100 mls/hr Q24H IV Last administered on 03/18/21at 21:00; Start 03/13/21 at 17:00 Calcium Gluconate (Calcium Gluconate) 1,000 mg 1X ONCE IVP Last administered on 03/14/21at 12:19; Start 03/14/21 at 10:00; Stop 03/14/21 at 10:01; Status DC Dextrose (Dextrose 50%-Water Syringe) 25 gm 1X ONCE IV Last administered on 03/14/21at 12:19; Start 03/14/21 at 10:00; Stop 03/14/21 at 10:01; Status DC Insulin Human Regular (HumuLIN R VIAL) 10 unit 1X ONCE IV Last administered on 03/14/21at 13:31; Start 03/14/21 at 10:00; Stop 03/14/21 at 10:01; Status DC Insulin Human Lispro (HumaLOG) 15 units TIDWMEALS SQ Last administered on 03/19/21at 08:13; Start 03/14/21 at 17:00 Insulin Glargine (Lantus Syringe) 40 unit QHS SQ Last administered on 03/17/21at 20:56; Start 03/14/21 at 21:00 Sodium Polystyrene Sulfonate (Kayexalate) 15 gm 1X ONCE PO Last administered on 03/14/21at 13:20; Start 03/14/21 at 14:00; Stop 03/14/21 at 14:01; Status DC Multi-Ingredient Mouthwash/Gargle (Gi Cocktail) 20 ml PRN QID PRN PO CHEST PAIN Last administered on 03/15/21at 18:22; Start 03/15/21 at 18:15 Lisinopril (Prinivil) 5 mg DAILY PO Last administered on 03/17/21at 08:40; Start 03/15/21 at 21:00; Stop 03/17/21 at 11:36; Status DC Amlodipine Besylate (Norvasc) 10 mg DAILY PO Last administered on 03/19/21at 08:09; Start 03/16/21 at 10:30 Iohexol (Omnipaque 350 Mg/ml) 90 ml 1X ONCE IV Last administered on 03/16/21at 14:49; Start 03/16/21 at 14:45; Stop 03/16/21 at 14:46; Status DC Info (CONTRAST GIVEN -- Rx MONITORING) 1 each PRN DAILY PRN MC SEE COMMENTS; Start 03/16/21 at 14:45; Stop 03/18/21 at 14:44; Status DC Budesonide (Pulmicort) 0.5 mg RTBID NEB Last administered on 03/19/21at 07:35; Start 03/17/21 at 10:45 Albuterol Sulfate (Ventolin Neb Soln) 2.5 mg PRN Q4HRS PRN NEB SHORTNESS OF BREATH; Start 03/17/21 at 10:45 Albuterol/ Ipratropium (Duoneb) 3 ml RTQID NEB ; Start 03/17/21 at 12:00; Status UNV Lisinopril (Prinivil) 20 mg DAILY PO Last administered on 03/19/21at 08:08; Start 03/17/21 at 12:00 Fentanyl Citrate (Fentanyl 2ml Vial) 25 mcg PRN Q5MIN PRN IVP MILD PAIN 1-3; Start 03/18/21 at 06:00; Stop 03/19/21 at 05:59; Status DC Fentanyl Citrate (Fentanyl 2ml Vial) 50 mcg PRN Q5MIN PRN IVP MODERATE PAIN 4-6 Last administered on 03/18/21at 16:46; Start 03/18/21 at 06:00; Stop 03/19/21 at 05:59; Status DC Morphine Sulfate (Morphine Sulfate) 1 mg PRN Q10MIN PRN IVP SEVERE PAIN 7-10; Start 03/18/21 at 06:00; Stop 03/19/21 at 05:59; Status DC Ringer's Solution 1,000 ml @ 30 mls/hr Q24H IV ; Start 03/18/21 at 06:00; S top 03/18/21 at 17:59; Status DC Hydromorphone HCl (Dilaudid) 0.5 mg PRN Q10MIN PRN IVP SEVERE PAIN 7-10, 2nd CHOICE; Start 03/18/21 at 06:00; Stop 03/19/21 at 05:59; Status DC Prochlorperazine Edisylate (Compazine) 5 mg PACU PRN PRN IVP NAUSEA, MRX1; Start 03/18/21 at 06:00; Stop 03/19/21 at 05:59; Status DC Fentanyl Citrate (Fentanyl 2ml Vial) 25 mcg PRN Q3HRS PRN IVP SEVERE PAIN 7-10 Last administered on 03/18/21at 13:36; Start 03/18/21 at 13:30 Heparin Sodium (Porcine) (Heparin Sodium) 10,000 unit STK-MED ONCE .ROUTE ; Start 03/18/21 at 14:33; Stop 03/18/21 at 14:33; Status DC Verapamil HCl (Verapamil) 5 mg STK-MED ONCE .ROUTE ; Start 03/18/21 at 14:33; Stop 03/18/21 at 14:33; Status DC Nitroglycerin (Nitroglycerin) 200 mcg STK-MED ONCE .ROUTE ; Start 03/18/21 at 14:33; Stop 03/18/21 at 14:33; Status DC Iodixanol (Visipaque 320) 100 ml STK-MED ONCE .ROUTE ; Start 03/18/21 at 14:33; Stop 03/18/21 at 14:33; Status DC Lidocaine HCl (Lidocaine 1% 20ml Vial) 20 ml STK-MED ONCE .ROUTE ; Start 03/18/21 at 14:33; Stop 03/18/21 at 14:34; Status DC Heparin Sodium/ Sodium Chloride 500 ml @ As Directed STK-MED ONCE .ROUTE ; Start 03/18/21 at 14:33; Stop 03/18/21 at 14:34; Status DC Fentanyl Citrate (Fentanyl 2ml Vial) 100 mcg STK-MED ONCE .ROUTE ; Start 03/18/21 at 14:39; Stop 03/18/21 at 14:39; Status DC Metoprolol Tartrate (Lopressor Vial) 5 mg STK-MED ONCE IVP ; Start 03/18/21 at 15:07; Stop 03/18/21 at 15:08; Status DC Heparin Sodium (Porcine) (Heparin Sodium) 10,000 unit STK-MED ONCE .ROUTE ; Start 03/18/21 at 15:21; Stop 03/18/21 at 15:21; Status DC Nitroglycerin (Nitroglycerin) 200 mcg 1X ONCE IART Last administered on 03/18/21at 15:30; Start 03/18/21 at 15:30; Stop 03/18/21 at 15:33; Status DC Verapamil HCl (Verapamil) 2.5 mg 1X ONCE IART Last administered on 03/18/21at 15:30; Start 03/18/21 at 15:30; Stop 03/18/21 at 15:33; Status DC Heparin Sodium (Porcine) (Heparin Sodium) 2,500 unit 1X ONCE IART Last administered on 03/18/21at 15:30; Start 03/18/21 at 15:30; Stop 03/18/21 at 15:33; Status DC Heparin Sodium/ Sodium Chloride (HEPARIN for ARTERIAL LINE FLUSH) 1,000 unit 1X ONCE IART Last administered on 03/18/21at 15:30; Start 03/18/21 at 15:30; Stop 03/18/21 at 15:33; Status DC Iodixanol (Visipaque 320) 100 ml 1X ONCE IART Last administered on 03/18/21at 16:02; Start 03/18/21 at 15:30; Stop 03/18/21 at 15:33; Status DC Heparin Sodium (Porcine) (Heparin Sodium) 4,000 unit 1X ONCE IV Last administered on 03/18/21at 15:30; Start 03/18/21 at 15:30; Stop 03/18/21 at 15:33; Status DC Lidocaine HCl (Lidocaine 1% 20ml Vial) 20 ml 1X ONCE INJ Last administered on 03/18/21at 15:30; Start 03/18/21 at 15:30; Stop 03/18/21 at 15:33; Status DC Info (CONTRAST GIVEN -- Rx MONITORING) 1 each PRN DAILY PRN MC SEE COMMENTS; Start 03/18/21 at 15:45; Stop 03/20/21 at 15:44 Nitroglycerin (Nitroglycerin) 200 mcg STK-MED ONCE .ROUTE ; Start 03/18/21 at 15:34; Stop 03/18/21 at 15:34; Status DC Ketamine HCl (Ketamine) 50 mg STK-MED ONCE .ROUTE ; Start 03/18/21 at 15:38; Stop 03/18/21 at 15:39; Status DC Protamine Sulfate (Protamine) 50 mg STK-MED ONCE IV ; Start 03/18/21 at 16:09; Stop 03/18/21 at 16:09; Status DC Protamine Sulfate (Protamine) 40 mg 1X ONCE IV Last administered on 03/18/21at 16:10; Start 03/18/21 at 16:15; Stop 03/18/21 at 16:16; Status DC Insulin Human Lispro (HumaLOG VIAL for OP,RR ONLY) 0-10 units PRN Q1HR PRN SQ PER PROTOCOL Last administered on 03/18/21at 16:35; Start 03/18/21 at 16:45; Stop 03/19/21 at 16:44 Fentanyl Citrate (Fentanyl 2ml Vial) 100 mcg STK-MED ONCE .ROUTE ; Start 03/18/21 at 16:37; Stop 03/18/21 at 16:38; Status DC Ondansetron HCl (Zofran) 4 mg STK-MED ONCE .ROUTE ; Start 03/18/21 at 16:37; Stop 03/18/21 at 16:38; Status DC Esmolol HCl (Brevibloc) 100 mg STK-MED ONCE IVP ; Start 03/18/21 at 15:00; Stop 03/19/21 at 09:08; Status DC Hydralazine HCl (Apresoline Inj) 20 mg 1X ONCE IVP Last administered on 03/19/21at 09:24; Start 03/19/21 at 09:30; Stop 03/19/21 at 09:31; Status DC Active Scripts Active Reported Tramadol Hcl 50 Mg Tablet 50 Mg PO Q6HRS PRN Torsemide 20 Mg Tablet 1 Tab PO DAILY Zetia (Ezetimibe) 10 Mg Tablet 10 Mg PO DAILY Novolog Flexpen (Insulin Aspart) 100 Unit/1 Ml Insuln.pen 10 Unit SQ TIDAC Cymbalta (Duloxetine Hcl) 30 Mg Capsule.dr 30 Mg PO DAILY Spiriva Respimat (Tiotropium [place]) 4 Gm Mist.inhal 2.5 Mcg IH DAILY Levemir Flextouch (Insulin Detemir) 100 Unit/1 Ml Insuln.pen 30 Unit SQ HS Alprazolam 0.25 Mg Tablet 1 Tab PO TID PRN Amlodipine Besylate 5 Mg Tablet 5 Mg PO DAILY Lisinopril 5 Mg Tablet 1 Tab PO DAILY Spironolactone 25 Mg Tablet 25 Mg PO DAILY Furosemide 40 Mg Tablet 40 Mg PO DAILY Gabapentin 600 Mg Tablet 1 Tab PO TID Glimepiride 4 Mg Tablet 1 Tab PO BID Carvedilol 25 Mg Tablet 1 Tab PO BID Clopidogrel (Clopidogrel Bisulfate) 75 Mg Tablet 75 Mg PO DAILY Pravastatin Sodium 80 Mg Tablet 1 Tab PO DAILY Vitals/I & O Vital Sign - Last 24 Hours 03/18/21 03/18/21 03/18/21 03/18/21 11:00 12:15 13:36 15:30 Temp 97.8 97.8 Pulse 73 86 Resp 16 B/P (MAP) 169/61 (97) Pulse Ox 94 94 O2 Delivery Room Air Nasal Cannula Room Air O2 Flow Rate 3.0 03/18/21 03/18/21 03/18/21 03/18/21 16:15 16:23 16:24 16:39 Temp 98.2 98.2 98.2 98.2 Pulse 85 92 80 Resp 22 15 B/P (MAP) 201/80 198/81 Pulse Ox 96 96 95 O2 Delivery Simple Mask Nasal Cannula Simple Mask Nasal Cannula O2 Flow Rate 10.0 3 10.0 3 03/18/21 03/18/21 03/18/21 03/18/21 16:54 17:20 18:19 19:08 Temp 97.7 97.7 Pulse 80 93 89 Resp 19 18 B/P (MAP) 191/72 198/70 (112) Pulse Ox 93 92 O2 Delivery Nasal Cannula Nasal Cannula Nasal Cannula O2 Flow Rate 3 3.0 3.0 03/18/21 03/18/21 03/18/21 03/19/21 21:05 21:16 22:46 03:00 Temp 98.0 97.8 98.0 97.8 Pulse 81 74 Resp 18 18 B/P (MAP) 182/64 (103) 141/59 (86) Pulse Ox 90 90 94 95 O2 Delivery Nasal Cannula Nasal Cannula Nasal Cannula Nasal Cannula O2 Flow Rate 3.0 3.0 3.0 3.0 03/19/21 03/19/21 03/19/21 03/19/21 07:00 07:37 07:38 08:00 Temp 97.5 97.5 Pulse 81 Resp 22 B/P (MAP) 248/93 (144) Pulse Ox 95 97 97 O2 Delivery Nasal Cannula Nasal Cannula Nasal Cannula Nasal Cannula O2 Flow Rate 3.0 3.0 3.0 3.0 03/19/21 03/19/21 03/19/21 03/19/21 08:08 08:09 08:09 09:00 Pulse 75 74 74 72 B/P (MAP) 248/93 141/59 141/59 219/71 (120) 03/19/21 03/19/21 09:24 10:10 Pulse 72 75 B/P (MAP) 219/71 208/92 (130) Intake and Output 03/18/21 03/18/21 03/19/21 15:00 23:00 07:00 Intake Total 300 ml 400 ml Balance 300 ml 400 ml Justifications for Admission Other Justification PEDRO MILIAN Shala Mar 19, 2021 10:48
[2021-03-19 11:00] VITALS: BP 199/62
[2021-03-19] MEDS ORDERED: LISINOPRIL 20 MG TABLET PO ONE ×2 (12:45→13:00)
[2021-03-19] MEDS ORDERED: METOPROLOL TART IMMED RELEASE 50 MG TABLET. PO ONE (12:45)
[2021-03-19 13:00] VITALS: BP 199/62
--- NOTE | 2021-03-19 13:01 | SNU/HH DC ---
DISCHARGE WITH HOME HEALTH DISCHARGE INFORMATION: Discharge Date: Mar 19, 2021 Final Diagnosis: diabetic foot wound acclerated hypertension morbid obese BMI 60 weakness debility acute renal failure Condition on Discharge: Stable CODE STATUS: Code Status: Full HOME HEALTH: Face to Face: I certify this patient is under my care and that I, had a face to face encounter that meets the physician face to face encounter requirements with this patient on 03/19 Medical Complications: CHF, DM Shelter For: Assess Cardiopulm Status, Medication Management RN For Eval/Treatment: Yes Physical Therapy For: Evalulation/Treatment Occupational Therapy For: Evaluation/Treatment Pt Meets Homebound Status: Unsteady balance w/ amb,, Limited distance walking POST DISCHARGE ORDERS: Activity Instructions for Disc: No restrictions Weight Bearing Status after Di: No restrictions, Full weight bearing DIET AFTER DISCHARGE: ADA FOLLOW-UP: Follow up with: Dr. Ybarra 1-2 weeks TREATMENT/EQUIPMENT ORDERS: Adaptive Equipment Issued: Front wheeled walker Discharge Respiratory Equipmen: Oxygen CERTIFICATION STATEMENT: Certification Statement: Certification Statement: Based on the above finding, I certify that this patient is confined to the home and needs intermittent senior care care, physical therapy and/or speech therapy, or continues to need occupational therapy.~ This patient is under my care, and I have initiated the establishment of the plan of care.~ This patient will be followed by myself or a community physician who will periodically review the plan of care. Home Meds Reported Medications Tramadol Hcl (TRAMADOL HCL) 50 Mg Tablet, 50 MG PO Q6HRS PRN for PAIN, TAB 03/12/21 Torsemide (TORSEMIDE) 20 Mg Tablet, 1 TAB PO DAILY for htn, #90 TAB 1 Refill 03/12/21 Ezetimibe (ZETIA) 10 Mg Tablet, 10 MG PO DAILY for HLD, TAB 03/12/21 Insulin Aspart (NOVOLOG FLEXPEN) 100 Unit/1 Ml Insuln.pen, 10 UNIT SQ TIDAC for DM, SYR 03/12/21 Duloxetine Hcl (CYMBALTA) 30 Mg Capsule.dr, 30 MG PO DAILY for depression, CAP 03/12/21 Tiotropium [place] (Spiriva Respimat) 4 Gm Mist.inhal, 2.5 MCG IH DAILY for copd, SPRAY 03/12/21 Insulin Detemir (Levemir Flextouch) 100 Unit/1 Ml Insuln.pen, 30 UNIT SQ HS for DM, SYR 03/12/21 Alprazolam (ALPRAZOLAM) 0.25 Mg Tablet, 1 TAB PO TID PRN for ANXIETY / AGITATION, #90 TAB 03/12/21 Amlodipine Besylate (AMLODIPINE BESYLATE) 5 Mg Tablet, 5 MG PO DAILY for HTN, TAB 03/12/21 Spironolactone (SPIRONOLACTONE) 25 Mg Tablet, 25 MG PO DAILY for as ordered, TAB 03/12/21 Furosemide (FUROSEMIDE) 40 Mg Tablet, 40 MG PO DAILY for fluid retention, TAB 03/12/21 Gabapentin (GABAPENTIN) 600 Mg Tablet, 1 TAB PO TID, #90 TAB 3 Refills 06/10/14 Glimepiride (GLIMEPIRIDE) 4 Mg Tablet, 1 TAB PO BID, #180 TAB 1 Refill 06/10/14 Carvedilol (CARVEDILOL) 25 Mg Tablet, 1 TAB PO BID, #180 TAB 1 Refill 06/10/14 Clopidogrel Bisulfate (CLOPIDOGREL) 75 Mg Tablet, 75 MG PO DAILY for TO PREVENT BLOOD CLOTS, #30 TAB 0 Refills 06/10/14 Pravastatin Sodium (PRAVASTATIN SODIUM) 80 Mg Tablet, 1 TAB PO DAILY, #30 TAB 5 Refills 06/10/14 Discontinued Reported Medications Lisinopril (LISINOPRIL) 5 Mg Tablet, 1 TAB PO DAILY for HTN, #30 TAB 5 Refills 03/12/21 Insulin Aspart (NOVOLOG) 100 Unit/1 Ml Cartridge, 9 UNIT SQ TIDAC, EACH 06/12/14 Insulin Detemir (LEVEMIR) 100 Unit/1 Ml Vial, 35 UNIT SQ BID, VIAL 06/12/14 Docusate Sodium (STOOL SOFTENER) 100 Mg Capsule, 100 MG PO 06/10/14 Diphenhydramine Hcl (BENADRYL) 25 Mg Capsule, 2 CAP PO QHS PRN for INSOMNIA, #60 CAP 2 Refills 06/10/14 Metformin Hcl (METFORMIN HCL) 1,000 Mg Tablet, 1 TAB PO BID, #60 TAB 5 Refills 06/10/14 BALDOMERO CHU MD Mar 19, 2021 13:01
--- NOTE | 2021-03-19 13:05 | PDOC3 ---
Discharge Summary Visit Information Date of Admission: Mar 12, 2021 Date of Discharge: Mar 19, 2021 Final Diagnosis Diabetic foot ulcer with suspected acute osteomyelitis. Diabetes type 2, poor contorl - a1c 11.4 COPD - on 4L/min home O2 Hypertension, accelerated htn, poor control here, acute on chronic diastolic CHF Hyperkalemia on admit, with other electrolyte problems [place] - acute vasomotor nephropathy morbid obesity, BMI 61 with moderate malnutrition serum albumin 2.7 on admit 03/15: Creatinine improved to 1.1 K4.9 glucose in the 200s. WBC 4.7 sed rate 92 CRP [address] left foot with no notable findings. Arterial doppler with detected peroneal flow possibly greater than 50% stenosis below the knee. Vascular surgery consulted 03/16: Feels the pain and swelling is improved able to feel her toes on her left foot a little more today. No nausea or vomiting. Awaiting vascular surgery input still requiring IV antibiotics. Tolerating home 4 L nasal cannula oxygen well with no hypoxia. 03/17: Underwent left lower extremity CT with runoff yesterday nondiagnostic. Tentative plans for selective left lower extremity angiography under anesthesia. She does use Spiriva as monotherapy inhaler at home will start aggressive nebulizer treatments today to help mitigate potential respiratory complications. Legs actually a little more red and swollen pain is about the same today. Afebrile. Creatinine improved to 1. Afebrile. Labs stable overnight breathing improved with breathing treatments. N.p.o. for left lower extremity angiogram with runoff today. Continue on antibiotics daptomycin. ID recommends doxycycline and Augmentin for 10 days on discharge. Vitals/I&O Brief Hospital Course Allergies Allergies Coded Allergies Type Severity Reaction Last Updated Verified atorvastatin Allergy Intermediate 03/12/21 Yes latex Allergy Intermediate 03/12/21 Yes Vital Signs Vital Signs Date Time Temp Pulse Resp B/P (MAP) Pulse Ox O2 Delivery O2 Flow Rate FiO2 03/19/21 11:53 Nasal Cannula 3.0 03/19/21 11:00 97.1 85 3 199/62 (107) 93 97.1 Lab Results Laboratory Tests Test 03/17/21 16:35 03/17/21 19:27 03/18/21 03:00 03/18/21 07:30 Glucose (Fingerstick) 179 mg/dL (70-99) 198 mg/dL (70-99) 135 mg/dL (70-99) White Blood Count 4.9 x10^3/uL (4.0-11.0) Red Blood Count 3.03 x10^6/uL (3.50-5.40) Hemoglobin 8.0 g/dL (12.0-15.5) Hematocrit 24.9 % (36.0-47.0) Mean Corpuscular Volume 82 fL (79-100) Mean Corpuscular Hemoglobin 27 pg (25-35) Mean Corpuscular Hemoglobin Concent 32 g/dL (31-37) Red Cell Distribution Width 14.1 % (11.5-14.5) Platelet Count 281 x10^3/uL (140-400) Neutrophils (%) (Auto) 60 % (31-73) Lymphocytes (%) (Auto) 24 % (24-48) Monocytes (%) (Auto) 12 % (0-9) Eosinophils (%) (Auto) 3 % (0-3) Basophils (%) (Auto) 1 % (0-3) Neutrophils # (Auto) 2.9 x10^3/uL (1.8-7.7) Lymphocytes # (Auto) 1.2 x10^3/uL (1.0-4.8) Monocytes # (Auto) 0.6 x10^3/uL (0.0-1.1) Eosinophils # (Auto) 0.2 x10^3/uL (0.0-0.7) Basophils # (Auto) 0.0 x10^3/uL (0.0-0.2) Prothrombin Time 13.8 SEC (11.7-14.0) Prothromb Time International Ratio 1.1 (0.8-1.1) Sodium Level 139 mmol/L (136-145) Potassium Level 4.2 mmol/L (3.5-5.1) Chloride Level 102 mmol/L (98-107) Carbon Dioxide Level 33 mmol/L (21-32) Anion Gap 4 (6-14) Blood Urea Nitrogen 15 mg/dL (7-20) Creatinine 1.0 mg/dL (0.6-1.0) Estimated GFR (Cockcroft-Gault) 56.4 Glucose Level 125 mg/dL (70-99) Calcium Level 8.9 mg/dL (8.5-10.1) Test 03/18/21 11:04 03/18/21 16:30 03/18/21 21:03 03/19/21 07:52 Glucose (Fingerstick) 123 mg/dL (70-99) 154 mg/dL (70-99) 153 mg/dL (70-99) 142 mg/dL (70-99) Test 03/19/21 12:10 Glucose (Fingerstick) 204 mg/dL (70-99) Laboratory Tests Test 03/18/21 16:30 03/18/21 21:03 03/19/21 07:52 03/19/21 12:10 Glucose (Fingerstick) 154 mg/dL (70-99) 153 mg/dL (70-99) 142 mg/dL (70-99) 204 mg/dL (70-99) Brief Hospital Course Ms. Abdul is a 60 old Patient presented to outside hospital from wound care appointment due to worsening foot ulcers. Concern for osteomyelitis Vanco Zosyn. Consulted infectious disease, podiatry, vascular surgery Discharge Information Condition at Discharge: Improved Follow Up: Weeks Disposition/Orders: D/C to Home w/ HH Scheduled Amlodipine Besylate (Amlodipine Besylate) 5 Mg Tablet, 5 MG PO DAILY for HTN, (Reported) Entered as Reported by: JEN LESTER LPN on 03/12/212213 Last Action: Continued on 03/13/212226 by GRIS ORDONEZ MD Carvedilol (Carvedilol) 25 Mg Tablet, 1 TAB PO BID, #180 Ref 1 (Reported) Entered as Reported by: LAURIE PONCE on 06/10/14426 Last Action: Converted on 03/13/212226 by GRIS ORDONEZ MD Clopidogrel Bisulfate (Clopidogrel) 75 Mg Tablet, 75 MG PO DAILY for TO PREVENT BLOOD CLOTS, #30 Ref 0 (Reported) Entered as Reported by: LAURIE PONCE on 06/10/14426 Last Action: Continued on 03/13/212226 by GRIS ORDONEZ MD Duloxetine Hcl (Cymbalta) 30 Mg Capsule.dr, 30 MG PO DAILY for depression, (Reported) Entered as Reported by: JEN LESTER LPN on 03/12/212222 Last Action: Continued on 03/13/212226 by GRIS ORDONEZ MD Ezetimibe (Zetia) 10 Mg Tablet, 10 MG PO DAILY for HLD, (Reported) Entered as Reported by: JEN LESTER LPN on 03/12/212222 Last Action: Continued on 03/13/212226 by GRIS ORDONEZ MD Furosemide (Furosemide) 40 Mg Tablet, 40 MG PO DAILY for fluid retention, (Reported) Entered as Reported by: JEN LESTER LPN on 03/12/212211 Last Taken: Unknown Dose on 03/12/21 Last Action: HELD on 03/13/212226 by GRIS ORDONEZ MD Gabapentin (Gabapentin) 600 Mg Tablet, 1 TAB PO TID, #90 Ref 3 (Reported) Entered as Reported by: LAURIE PONCE on 06/10/14426 Last Action: Converted on 03/13/212226 by GRIS ORDONEZ MD Glimepiride (Glimepiride) 4 Mg Tablet, 1 TAB PO BID, #180 Ref 1 (Reported) Entered as Reported by: LAURIE PONCE on 06/10/14426 Last Action: HELD on 03/13/212226 by GRIS ORDONEZ MD Insulin Aspart (Novolog Flexpen) 100 Unit/1 Ml Insuln.pen, 10 UNIT SQ TIDAC for DM, (Reported) Entered as Reported by: JEN LESTER LPN on 03/12/212222 Last Action: Converted on 03/13/212226 by GRIS ORDONEZ MD Insulin Detemir (Levemir Flextouch) 100 Unit/1 Ml Insuln.pen, 30 UNIT SQ HS for DM, (Reported) Entered as Reported by: JEN LESTER LPN on 03/12/212213 Last Action: Converted on 03/13/212226 by GRIS ORDONEZ MD Pravastatin Sodium (Pravastatin Sodium) 80 Mg Tablet, 1 TAB PO DAILY, #30 Ref 5 (Reported) Entered as Reported by: LAURIE PONCE on 06/10/14426 Last Action: Converted on 03/13/212226 by GRIS ORDONEZ MD Spironolactone (Spironolactone) 25 Mg Tablet, 25 MG PO DAILY for as ordered, (Reported) Entered as Reported by: JEN LESTER LPN on 03/12/212211 Last Action: Continued on 03/13/212226 by GRIS ORDONEZ MD Tiotropium [place] (Spiriva Respimat) 4 Gm Mist.inhal, 2.5 MCG IH DAILY for copd, (Reported) Entered as Reported by: JEN LESTER LPN on 03/12/212222 Last Action: Converted on 03/13/212226 by GRIS ORDONEZ MD Torsemide (Torsemide) 20 Mg Tablet, 1 TAB PO DAILY for htn, #90 Ref 1 (Reported) Entered as Reported by: JEN LESTER LPN on 03/12/212226 Last Action: Continued on 03/13/212226 by GRIS ORDONEZ MD Scheduled PRN Alprazolam (Alprazolam) 0.25 Mg Tablet, 1 TAB PO TID PRN for ANXIETY / AGITATION, #90 (Reported) Entered as Reported by: JEN LESTER LPN on 03/12/212213 Last Action: Continued on 03/13/212226 by GRIS ORDONEZ MD Tramadol Hcl (Tramadol Hcl) 50 Mg Tablet, 50 MG PO Q6HRS PRN for PAIN, (Reported) Entered as Reported by: JEN LESTER LPN on 03/12/212226 Last Action: Continued on 03/13/212226 by GRIS ORDONEZ MD Discontinued Medications Diphenhydramine Hcl (Benadryl) 25 Mg Capsule, 2 CAP PO QHS PRN for INSOMNIA, #60 Ref 2 (Reported) Entered as Reported by: LAURIE PONCE on 06/10/14426 Last Action: Discontinued on 03/12/212208 by JEN LESTER LPN Docusate Sodium (Stool Softener) 100 Mg Capsule, 100 MG PO, (Reported) Entered as Reported by: LAURIE PONCE on 06/10/14426 Last Action: Discontinued on 03/12/212208 by JEN LESTER LPN Insulin Aspart (Novolog) 100 Unit/1 Ml Cartridge, 9 UNIT SQ TIDAC, (Reported) Entered as Reported by: NAYE MANN on 06/12/14 1615 Last Action: Discontinued on 03/12/212208 by JEN LESTER LPN Insulin Detemir (Levemir) 100 Unit/1 Ml Vial, 35 UNIT SQ BID, (Reported) Entered as Reported by: NAYE MANN on 06/12/14 1615 Last Action: Discontinued on 03/12/212208 by JEN LESTER LPN Lisinopril (Lisinopril) 5 Mg Tablet, 1 TAB PO DAILY for HTN, #30 Ref 5 (Reported) Entered as Reported by: JEN LESTER LPN on 03/12/212213 Last Action: Continued on 03/13/212226 by GRIS ORDONEZ MD Metformin Hcl (Metformin Hcl) 1,000 Mg Tablet, 1 TAB PO BID, #60 Ref 5 (Reported) Entered as Reported by: LAURIE PONCE on 06/10/14426 Last Action: Discontinued on 03/12/212208 by JEN LESTER LPN Patient Instructions Patient Instructions face to face eval 37 minutes total care time Justicifation of Admission Dx: Justifications for Admission: Justification of Admission Dx: N/A BALDOMERO CHU MD Mar 19, 2021 13:05
--- NOTE | 2021-03-19 14:21 | NUR ---
SS following up with discharge planning. SS reviewed pt chart and discussed with pt RN. Pt is currently requiring oxygen at three liters nasal canula. Pt has home oxygen. Pt had aortogram with run off on 03/18/2021. PT/OT recommended home. Discharge orders received for home with home healthcare. SS met with pt and discussed discharge planning and home healthcare services. Pt agreeable to home healthcare with no preference of company. Discharge orders and referral sent to [facility], ; fax [phone]. Pt's RN notified.
[2021-03-19] MEDS ORDERED: METOPROLOL TART IMMED RELEASE 50 MG TABLET. PO SCH (21:00)
[2021-03-20] MEDS ORDERED: LISINOPRIL 20 MG TABLET PO SCH (09:00)
== END 2021-03-19 14:58 | disposition home health service (06) | DRG 602 ==
LOC: 4 NORTH 21:29 → 6 SOUTH 03-18 15:36
PROVIDERS: ADMIT Student in an Organized Health Care Education/Training Program; ATTEND Student in an Organized Health Care Education/Training Program
PROC: B41D1ZZ Fluoroscopy of Aorta and Bilateral Lower Extremity Arteries using Low Osmolar Contrast (ICD-10-PCS; principal; 2021-03-18)
PROC: B41G1ZZ Fluoroscopy of Left Lower Extremity Arteries using Low Osmolar Contrast (ICD-10-PCS; 2021-03-18)
PROC: B41F1ZZ Fluoroscopy of Right Lower Extremity Arteries using Low Osmolar Contrast (ICD-10-PCS; 2021-03-18)
DX: L03.116 Cellulitis of left lower limb (principal); I50.33 Acute on chronic diastolic (congestive) heart failure; N17.0 Acute kidney failure with tubular necrosis; E44.0 Moderate protein-calorie malnutrition; I13.0 Hypertensive heart and chronic kidney disease with heart failure and stage 1 through stage 4 chronic kidney disease, or unspecified chronic kidney disease; Z68.44 Body mass index [BMI] 60.0-69.9, adult; M86.172 Other acute osteomyelitis, left ankle and foot; E11.51 Type 2 diabetes mellitus with diabetic peripheral angiopathy without gangrene; E11.69 Type 2 diabetes mellitus with other specified complication; D64.9 Anemia, unspecified; E11.22 Type 2 diabetes mellitus with diabetic chronic kidney disease; E11.42 Type 2 diabetes mellitus with diabetic polyneuropathy; E11.621 Type 2 diabetes mellitus with foot ulcer; E66.01 Morbid (severe) obesity due to excess calories; E78.5 Hyperlipidemia, unspecified; E87.5 Hyperkalemia; G47.33 Obstructive sleep apnea (adult) (pediatric); I25.10 Atherosclerotic heart disease of native coronary artery without angina pectoris; I70.203 Unspecified atherosclerosis of native arteries of extremities, bilateral legs; I87.8 Other specified disorders of veins; J44.9 Chronic obstructive pulmonary disease, unspecified; L97.529 Non-pressure chronic ulcer of other part of left foot with unspecified severity; N18.30 Chronic kidney disease, stage 3 unspecified; Z79.02 Long term (current) use of antithrombotics/antiplatelets; Z82.49 Family history of ischemic heart disease and other diseases of the circulatory system; Z89.422 Acquired absence of other left toe(s); Z83.3 Family history of diabetes mellitus; M19.90 Unspecified osteoarthritis, unspecified site
CPT/HCPCS: 36246; 36415; 73700; 75625; 75635; 75716; 76937; 80048; 80053; 81001; 82550; 82962; 83036; 85025; 85610; 85651; 85730; 86140; 87040; 87071; 87075; 87077; 87086; 87186; 93926; 94640; 94760; C1894; J0360; J0610; J0878; J1644; J1815; J2405; J2543; J2720; J3010; J3370; J3490; J7040; Q9967; 97110-GP; 97116-GP; G0378; J7626